=== PATIENT | female | born 1945 | race Two or more races ===

== ENCOUNTER 2020-03-14 16:47 | Inpatient (IN) | payer MEDICARE, BC ==
[~2020-03-14] VITALS: Ht 152.4 cm; Wt 85.7 kg
--- NOTE | 2020-03-14 16:50 | NUR ---
PT BIBRA FROM HOME C/O SOB 80S ON RA. ON CPAP UPON ARRIVAL. PT IS AAOX3, NOTED RESPIRATORY DISTRESS, HOOKED TO VALVE LAPPER AND BIPAP. KEPT RESTED AND COMFORTABLE. WILL CONTINUE TO MONITOR.
--- NOTE | 2020-03-14 16:52 | NUR ---
SEEN AND EXAMINED BY .
--- NOTE | 2020-03-14 16:55 | NUR ---
RT AT BEDSIDE FOR BIPAP SET UP: 21/08 100%
[2020-03-14] MEDS ORDERED: DEXAMETHASONE SOD PHOSPHATE 4 MG/ML VIAL ONE (17:00)
[2020-03-14] MEDS ORDERED: VANCOMYCIN 1 GM in IV D5W 250 ML IV ONE (17:00)
[2020-03-14] MEDS ORDERED: DEXAMETHASONE SOD PHOSPHATE 4 MG/ML VIAL IV ONE (17:00)
[2020-03-14] MEDS ORDERED: CEFEPIME 1 GM in IV D5W 50 ML IV ONE (17:00)
--- NOTE | 2020-03-14 17:00 | NUR ---
URINE SPECIMEN COLLECTED AND SENT TO LAB.
--- NOTE | 2020-03-14 17:11 | NUR ---
JUNIOR LOAN PROCESSOR AT BEDSIDE FOR XRAY.
[2020-03-14 17:21] LABS: ABG BASE EXCESS -15.8 mmol/L; ABG OXYGEN SATURATION 92.2 % (92.0-98.5); ABG PCO2 23.2 mmHg (35.0-45.0); ABG PH 7.238 (7.350-7.450); ABG PO2 77.4 mmHg (75.0-100.0); AaDO2 612.4 mmHg; COHb 0.7 % (0.5-1.5); MetHb 0.4 % (0.0-1.5); O2Hb 91.2 % (94.0-97.0); SITE, ABG Right Radial; VENT MODE, BG ST 15/5 100%
[2020-03-14 17:26] LABS: BILIRUBIN,URINE Negative (NEGATIVE); COLOR,URINE YELLOW (YELLOW); LEUKOCYTE ESTERASE ,URINE Negative (NEGATIVE); NITRITE, URINE Negative (NEGATIVE); PROTEIN,URINE >=300 mg/dl (NEGATIVE); UGLUCOSE 500 MG/DL mg/dL (NEGATIVE); UROBILINOGEN,URINE 0.2 EU/dL (0.2)
[2020-03-14 17:43] LABS: BACTERIA,URINE Few /HPF (None Seen); SQUAMOUS EPITHELIAL CELL,UR Few /HPF (None Seen); URINE AMORPHOUS URATE Moderate /HPF (None Seen); WBC,URINE 0-2 /HPF (0-3)
--- NOTE | 2020-03-14 17:44 | NUR ---
COVID SPECIMEN OBTAINED AND SENT TO LAB.
[2020-03-14 17:58] LABS: BASOPHILS % (AUTO) 0.4 % (0.0-2.0); EOSINOPHILS % (AUTO) 0.1 % (0.0-6.0); HEMATOCRIT 42 % (33-45); HEMOGLOBIN 13.5 g/dL (11.5-14.8); LYMPHOCYTES # (AUTO) 0.4 /CMM (0.8-4.8); LYMPHOCYTES % (AUTO) 7.3 % (20.0-44.0); MEAN CORPUSCULAR HGB CONC 32 g/dl (31.0-36.0); MEAN CORPUSCULAR VOLUME 93 fL (82-100); MONOCYTES # (AUTO) 0.3 /CMM (0.1-1.30); MONOCYTES % (AUTO) 4.6 % (2.0-12.0); NEUTROPHILS # (AUTO) 5.4 /CMM (1.8-8.9); NEUTROPHILS % (AUTO) 87.6 % (43.0-81.0); PLATELET COUNT (AUTO) 204 /CMM (150-450); RED BLOOD CELL COUNT(AUTO) 4.47 MIL/uL (4.0-5.2); WHITE BLOOD COUNT (AUTO) 6.2 K/uL (4.3-11.0)
[2020-03-14 18:17] LABS: ALANINE AMINOTRANSFERASE 40 U/L (12-78); ALKALINE PHOSPHATASE 60 U/L (46-116); ASPARTATE AMINOTRANSFERASE 91 U/L (15-37); BILIRUBIN,DIRECT 0.2 mg/dL (0.0-0.2); BILIRUBIN,TOTAL 0.4 mg/dL (0.2-1.0); CALCIUM, SERUM 9.3 mg/dL (8.5-10.1); CARBON DIOXIDE 13 mmol/L (21-32); CHLORIDE 99 mmol/L (98-107); CREATININE 2.4 mg/dL (0.6-1.3); POTASSIUM 4.7 mmol/L (3.5-5.1); SODIUM SERUM 135 mmol/L (136-145); TOTAL PROTEIN, SERUM 8.2 g/dL (6.4-8.2); UREA NITROGEN, BLOOD 43 mg/dL (7-18)
[2020-03-14 18:18] LABS: GLUCOSE 439 mg/dL (74-106)
--- NOTE | 2020-03-14 19:13 | NUR ---
REPORT GIVEN TO LZU GTZ FOR FLIP.
--- NOTE | 2020-03-14 19:19 | NUR ---
called rn sup for picc line nurse
[2020-03-14] MEDS ORDERED: ASPIRIN 300 MG/SUPP.RECT RC ONE ×3 (19:30→19:32)
[2020-03-14] MEDS ORDERED: INSULIN REGULAR, HUMAN 100 UNIT/ML 10 ML VIAL SQ ONE (19:30)
[2020-03-14] MEDS ORDERED: NS 0.9% IV ONE (19:30)
--- NOTE | 2020-03-14 19:56 | NUR ---
TOOK OVER PT CARE. PT AAOX4. ON BIPAP 03/13 RATE OF 21. PT SAT 94%. PT AWARE SHE IS COVID POSITIVE.
[2020-03-14] MEDS ORDERED: ENOXAPARIN SODIUM 40 MG/0.4 ML DISP.SYRIN SQ SCH (20:00)
[2020-03-14] MEDS ORDERED: ONDANSETRON HCL/PF 4 MG/2 ML VIAL IVP PRN (20:00)
[2020-03-14] MEDS ORDERED: MAG HYDROX/AL HYDROX/SIMETH 30 ML UDC PO PRN (20:00)
[2020-03-14] MEDS ORDERED: HYDROCODONE/APAP 5/325MG TABLET PO PRN (20:00)
[2020-03-14] MEDS ORDERED: IV NS 0.9% 1,000 ML IV SCH (20:00)
[2020-03-14] MEDS ORDERED: Z GUARD REMEDY 2 OZ OINT TP PRN (20:00)
[2020-03-14] MEDS: ASPIRIN 325 MG TABLET PO SCH (20:00)
[2020-03-14] MEDS ORDERED: MAGNESIUM HYDROXIDE 30 ML UDC PO PRN (20:00)
[2020-03-14] MEDS ORDERED: FUROSEMIDE 40 MG/4 ML VIAL IV ONE (20:00)
--- NOTE | 2020-03-14 20:12 | NUR ---
ROOM ASSIGNEMENT : 250
--- NOTE | 2020-03-14 20:38 | NUR ---
RT AT BEDSIDE TO SWITCH PT FROM BIPAP TO HIGH FLOW.
--- NOTE | 2020-03-14 20:40 | NUR ---
RT NOTE Pt rec'd on bipap on noted settings. Pt awake and alert. Pt shows no signs of resp distress. Pt placed on HFNC + NRB mask @ 15LPM on noted settings per md orders. ABG taken and critical results given to MD. Will continue to monitor closely. Addendum: 03/15/20 at 0002 by FIDELIA LYONS RT Amended: Links added.
--- NOTE | 2020-03-14 20:52 | NUR ---
REPORT GIVEN TO DAMIAN ESCOBAR FOR FLIP
--- NOTE | 2020-03-14 20:53 | NUR ---
Received report from LUZ Espinoza for FLIP
[2020-03-14 21:09] LABS: ABG BASE EXCESS -8.1 mmol/L; ABG OXYGEN SATURATION 85.8 % (92.0-98.5); ABG PCO2 26.7 mmHg (35.0-45.0); ABG PH 7.382 (7.350-7.450); ABG PO2 52.6 mmHg (75.0-100.0); AaDO2 633.7 mmHg; COHb 0.2 % (0.5-1.5); MetHb 0.4 % (0.0-1.5); O2Hb 85.3 % (94.0-97.0); SITE, ABG Right Radial; VENT MODE, BG high flow 60L 100% 15LNRB
--- NOTE | 2020-03-14 21:26 | NUR ---
SYSTEMS QA ANALYST NOTE: Rec'd orders from Dr. Long. Insulin drip, use formula blood sugarx1.5/100= hourly insulin drip rate. Rate can be adjusted hourly. Continue drip until anion gap <12 and bicarb >16. BMP Q6H NS @75ml/hr. Switch fluids to D5 1.2NS at 75ml/hr when blood sugar is <250 while still on insulin drip. Orders noted and carried out.
[2020-03-14] MEDS ORDERED: DEXTROSE 50%-WATER 50 ML DISP.SYRIN IV PRN (21:30)
[2020-03-14] MEDS ORDERED: BLOOD SUGAR DIAGNOSTIC 1 EACH STRIP IN SCH (21:30)
--- NOTE | 2020-03-14 21:38 | NUR ---
PT TRANSFERED PER ACLS PROTOCOL
[2020-03-14 21:41] VITALS: BP 122/63
[2020-03-14] MEDS ORDERED: INSULIN REGULAR, HUMAN 100 UNIT/ML 3 ML VIAL ONE (21:55)
[2020-03-14] MEDS ORDERED: AZITHROMYCIN 500 MG VIAL ONE (21:56)
[2020-03-14 22:00] VITALS: BP 50/27
[2020-03-14] MEDS ORDERED: IV NS 0.9% 1,000 ML IV PRN (22:00)
--- NOTE | 2020-03-14 22:00 | NUR ---
ICU ADMISSION NOTE: 2129: Pt transferred to unit via gurney accompanied by RN, EMT and RT. Transferred to bed, hooked up to monitors, skin check done, intact. Pt A&Ox4, Polish speaking. On hi-flow 60L at 100% and NRB at 100%. No SOB or resp distress noted at this time. SR on tele monitor. On isolation for positive Covid, pending PCR. IV sites on right hand #20 and left AC #20 patent and flushed. Dressings c/d/i. Awaiting PICC line placement. Arias catheter patent and draining urine via gravity. Belongings check done. Oriented to room and call light. Safety measures in place. Will continue to monitor closely.
[2020-03-14] MEDS: AZITHROMYCIN 500 MG in IV D5W 250 ML IV SCH (22:10)
[2020-03-14] MEDS: BLOOD SUGAR DIAGNOSTIC 1 EACH STRIP IN SCH ×2 (22:17→23:10)
[2020-03-14] MEDS: INSULIN REGULAR, HUMAN 100 UNIT in IV NS 0.9% 99 ML IV PRN ×2 (22:17)
[2020-03-14 22:18] VITALS: BP 110/53
[2020-03-14] MEDS ORDERED: FUROSEMIDE 20 MG/2 ML VIAL ONE (22:20)
[2020-03-14 22:30] VITALS: BP 106/65
[2020-03-14 23:00] VITALS: BP 119/66
[2020-03-14 23:30] VITALS: BP 120/67
--- NOTE | 2020-03-14 23:50 | NUR ---
BOWL TOPPER NOTE: Updated Dr. Long about pt being on both hi-flow and NRB mask, said it is fine as long as pt is saturating. Noted.
[2020-03-15] VITALS (50 sets, daily range): BP systolic 72–167; BP diastolic 19–116
[2020-03-15] MEDS: BLOOD SUGAR DIAGNOSTIC 1 EACH STRIP IN SCH ×25 (00:07→23:58)
[2020-03-15 00:18] LABS: CARBON DIOXIDE 17 mmol/L (21-32); CHLORIDE 103 mmol/L (98-107); CREATININE 1.7 mg/dL (0.6-1.3); POTASSIUM 3.6 mmol/L (3.5-5.1); SODIUM SERUM 134 mmol/L (136-145); UREA NITROGEN, BLOOD 38 mg/dL (7-18)
[2020-03-15 00:33] LABS: GLUCOSE 404 mg/dL (74-106)
--- NOTE | 2020-03-15 00:37 | NUR ---
GUN WELDER NOTE: Rec'd critical lab value glucose: 404. Paged Dr. Long w/ order to adjust insulin drip to 6units/hr. Order noted and carried out.
[2020-03-15] MEDS: IV D5/0.45 NACL 1,000 ML IV PRN ×2 (02:16→13:57)
[2020-03-15 05:00] LABS: BASOPHILS % (AUTO) 0.1 % (0.0-2.0); EOSINOPHILS % (AUTO) 0.1 % (0.0-6.0); HEMATOCRIT 38 % (33-45); HEMOGLOBIN 12.6 g/dL (11.5-14.8); LYMPHOCYTES # (AUTO) 0.7 /CMM (0.8-4.8); LYMPHOCYTES % (AUTO) 9.2 % (20.0-44.0); MEAN CORPUSCULAR HGB CONC 33 g/dl (31.0-36.0); MEAN CORPUSCULAR VOLUME 89 fL (82-100); MONOCYTES # (AUTO) 0.4 /CMM (0.1-1.30); MONOCYTES % (AUTO) 4.7 % (2.0-12.0); NEUTROPHILS # (AUTO) 6.5 /CMM (1.8-8.9); NEUTROPHILS % (AUTO) 85.9 % (43.0-81.0); PLATELET COUNT (AUTO) 185 /CMM (150-450); RED BLOOD CELL COUNT(AUTO) 4.28 MIL/uL (4.0-5.2); WHITE BLOOD COUNT (AUTO) 7.6 K/uL (4.3-11.0)
[2020-03-15 05:20] LABS: CALCIUM, SERUM 8.2 mg/dL (8.5-10.1); CARBON DIOXIDE 19 mmol/L (21-32); CHLORIDE 107 mmol/L (98-107); CREATININE 1.6 mg/dL (0.6-1.3); GLUCOSE 140 mg/dL (74-106); MAGNESIUM 2.1 mg/dL (1.8-2.4); POTASSIUM 3.7 mmol/L (3.5-5.1); SODIUM SERUM 141 mmol/L (136-145); UREA NITROGEN, BLOOD 40 mg/dL (7-18)
--- NOTE | 2020-03-15 07:10 | NUR ---
RN NOTES: Received Pt in bed resting comfortably in moderate high back rest. A/O x4. able to make needs known. On Hi flow 60LPM at 100% and NRB at 100%, tolerating well. No SOB or resp distress noted at this time. SR on tele monitor. IV access on RH #20 and LAC #20, w/ insulin drip infusing at 2.3units/hr and D5 1/2NS at 75ml/hr. Arias catheter in place patent and draining urine via gravity. Safety measures in place. Will continue to monitor.
--- NOTE | 2020-03-15 07:17 | NUR ---
SAILING OFFICER CLOSING NOTES: Pt remains on hi flow 60LPM at 100% and NRB at 100%, tolerating well. No SOB or resp distress noted. SB/SR on tele monitor. RH #20 and LAC #20 patent and flushed w/ insulin drip infusing at 2.3units/hr and D5 1/2NS at 75ml/hr. Arias catheter in place patent and draining urine via gravity. Kept clean/dry. All due meds given as ordered. Safety measures in place. Will endorse to AM nurse for FLIP.
[2020-03-15] MEDS: DEXAMETHASONE SOD PHOSPHATE 10 MG/ML VIAL IJ SCH (08:08)
[2020-03-15] MEDS: ASPIRIN 325 MG TABLET PO SCH (08:50)
[2020-03-15] MEDS: INSULIN REGULAR, HUMAN 100 UNIT in IV NS 0.9% 99 ML IV PRN ×2 (09:15)
[2020-03-15 09:43] LABS: ABG BASE EXCESS -6.9 mmol/L; ABG PCO2 26.1 mmHg (35.0-45.0); ABG PH 7.408 (7.350-7.450); ABG PO2 51.2 mmHg (75.0-100.0); AaDO2 635.7 mmHg; MetHb 0.1 % (0.0-1.5); O2Hb 85.9 % (94.0-97.0); SITE, ABG Right Radial; VENT MODE, BG 60l 100% +nrb
--- NOTE | 2020-03-15 10:30 | NUR ---
RN NOTES DR. ELLIS ON UNIT, NOTIFIED REGARDING TROP OF 2.3, NO ORDERS AT THIS TIME. WILL CONTINUE TO MONITOR.
[2020-03-15 10:45] LABS: THYROID STIMULATING HORMONE 0.181 uIU/mL (0.358-3.74)
[2020-03-15 12:15] LABS: CALCIUM, SERUM 8.2 mg/dL (8.5-10.1); CREATININE 1.3 mg/dL (0.6-1.3); POTASSIUM 3.6 mmol/L (3.5-5.1)
[2020-03-15] MEDS ORDERED: GLYB5TAB7 PO (12:21)
[2020-03-15] MEDS ORDERED: LINA5TAB PO (12:21)
[2020-03-15] MEDS ORDERED: PIOG30TA10 PO (12:21)
[2020-03-15] MEDS ORDERED: LOVA40TA2 PO (12:21)
[2020-03-15] MEDS ORDERED: LEVO125T PO (12:21)
[2020-03-15] MEDS: APIXABAN 2.5 MG TABLET PO SCH (17:00)
[2020-03-15] MEDS ORDERED: REMDESIVIR (CHARGED) 200 MG, *LOADING DOSE 1 EA in IV NS 0.9% 210 ML IV ONE (18:00)
[2020-03-15 18:44] LABS: CALCIUM, SERUM 8.3 mg/dL (8.5-10.1); CREATININE 1.1 mg/dL (0.6-1.3); POTASSIUM 3.7 mmol/L (3.5-5.1)
--- NOTE | 2020-03-15 18:55 | NUR ---
RN NOTES: Patient in bed resting comfortably in moderate high back rest. A/O x3 . On Hi flow 60LPM at 100% and NRB at 100%, tolerating well. No respiratory distress throughout the shift. SR on tele monitor with HR of 60.. IV access on RH #20 and LAC #20, w/ insulin drip infusing at 2.4 units/hr and D5 1/2NS at 75ml/hr. Arias catheter in place patent and draining urine via gravity. Safety measures in place. Will endorse to overnight houseperson nurse for giselle.
--- NOTE | 2020-03-15 19:34 | NUR ---
PAINTER AND PAPERHANGER APPRENTICE OPENING NOTES: Rec'd pt awake in bed, A&Ox4. On isolation for positive Covid. On hi-flow 60LPM at 100% and NRB mask at 100%. No SOB or resp distress noted at this time. SR on tele monitor. NPO dx. RH #20 and LAC #20 patent and infusing insulin drip at 2.4units/hr and D5 1/2NS at 75ml/hr. Arias catheter in place patent and draining urine via gravity. Denies pain at this time. Safety measures in place. Will continue to monitor.
[2020-03-15] MEDS: CEFTRIAXONE 1 G in IV D5W 50 ML IV SCH (20:10)
[2020-03-15] MEDS: AZITHROMYCIN 500 MG in IV D5W 250 ML IV SCH (20:55)
--- NOTE | 2020-03-15 22:06 | NUR ---
DISTRICT MEDICAL EXAMINER NOTE: Pt's blood sugar not trending down. Spoke w/ Dr. Long and recommended changing formula to blood sugar x 2.0/100. agreed. Noted and will use new formula.
[2020-03-15 22:58] LABS: CALCIUM, SERUM 7.8 mg/dL (8.5-10.1); CREATININE 1.1 mg/dL (0.6-1.3); POTASSIUM 3.2 mmol/L (3.5-5.1)
[2020-03-16] VITALS (40 sets, daily range): BP systolic 83–161; BP diastolic 42–105
[2020-03-16] MEDS: BLOOD SUGAR DIAGNOSTIC 1 EACH STRIP IN SCH ×23 (01:09→23:00)
--- NOTE | 2020-03-16 01:33 | NUR ---
CENTRAL SUPPLY AIDE NOTE: Rec'd call from Pattie from lab, pt's convalescent plasma is ready. 0130: Obtained verbal consent from pt w/ witness Yamilex Babcock RN d/t pt being positive and keeping forms outside of room for isolation purposes.
--- NOTE | 2020-03-16 02:10 | NUR ---
TEST CONDUCTOR NOTE: Pt pulled out IV on right hand. Pressure applied, elevated extremity. Will continue to monitor.
--- NOTE | 2020-03-16 04:16 | NUR ---
ARMATURE WINDER NOTE: Pt refused bed bath and linen change. Stated "later".
[2020-03-16 05:03] LABS: BASOPHILS % (AUTO) 0.1 % (0.0-2.0); HEMATOCRIT 38 % (33-45); HEMOGLOBIN 12.6 g/dL (11.5-14.8); LYMPHOCYTES # (AUTO) 0.5 /CMM (0.8-4.8); MEAN CORPUSCULAR HGB CONC 33 g/dl (31.0-36.0); MEAN CORPUSCULAR VOLUME 89 fL (82-100); MONOCYTES # (AUTO) 0.4 /CMM (0.1-1.30); MONOCYTES % (AUTO) 2.7 % (2.0-12.0); NEUTROPHILS # (AUTO) 12.1 /CMM (1.8-8.9); NEUTROPHILS % (AUTO) 93.2 % (43.0-81.0); PLATELET COUNT (AUTO) 200 /CMM (150-450); WHITE BLOOD COUNT (AUTO) 12.9 K/uL (4.3-11.0)
[2020-03-16] MEDS: IV D5/0.45 NACL 1,000 ML IV PRN (05:09)
[2020-03-16 05:23] LABS: ALANINE AMINOTRANSFERASE 37 U/L (12-78); ALBUMIN 2.3 g/dL (3.4-5.0); ALKALINE PHOSPHATASE 61 U/L (46-116); ASPARTATE AMINOTRANSFERASE 73 U/L (15-37); BILIRUBIN,TOTAL 0.3 mg/dL (0.2-1.0); CALCIUM, SERUM 8.1 mg/dL (8.5-10.1); CARBON DIOXIDE 21 mmol/L (21-32); CHLORIDE 109 mmol/L (98-107); GLUCOSE 110 mg/dL (74-106); MAGNESIUM 1.8 mg/dL (1.8-2.4); POTASSIUM 3.4 mmol/L (3.5-5.1); SODIUM SERUM 141 mmol/L (136-145); TOTAL PROTEIN, SERUM 6.5 g/dL (6.4-8.2); UREA NITROGEN, BLOOD 27 mg/dL (7-18)
--- NOTE | 2020-03-16 07:08 | NUR ---
AGRICULTURAL EDUCATION TEACHER CLOSING NOTES: No acute changes noted. Pt remains on hi-flow 60LPM at 100% and NRB mask. SR on tele monitor. LAC #20 patent and infusing D5 1/2NS at 75mlhr and insulin drip at 3.2 units/hr. Arias intact patent and draining urine via gravity. Pt s/p 1 unit of convalescent plasma. All due meds given as ordered. Kept clean/dry. Safety measures in place. Will endorse to oncoming nurse for FLIP.
--- NOTE | 2020-03-16 07:10 | NUR ---
RN NOTES: Received Pt in bed resting comfortably in moderate high back rest. A/O x4. able to make needs known. On Hi flow 60LPM at 100% and NRB at 100%, tolerating well. No SOB or resp distress noted at this time. SR on tele monitor. IV access on LAC #20, w/ insulin drip infusing at 3.2units/hr and D5 1/2NS at 75ml/hr. Arias catheter in place patent and draining urine via gravity. Safety measures in place. Will continue to monitor.
--- NOTE | 2020-03-16 07:32 | NUR ---
RECEIVED PCR LAB RESULT, PATIENT'S RESULT IS POSITIVE.
[2020-03-16] MEDS: DEXAMETHASONE SOD PHOSPHATE 10 MG/ML VIAL IJ SCH (08:26)
[2020-03-16] MEDS: ACETAMINOPHEN 325 MG TABLET PO PRN (08:26)
[2020-03-16] MEDS: ASPIRIN 325 MG TABLET PO SCH (08:26)
[2020-03-16] MEDS: APIXABAN 2.5 MG TABLET PO SCH ×2 (08:29→17:29)
[2020-03-16 08:49] LABS: ABG BASE EXCESS -3.2 mmol/L; ABG OXYGEN SATURATION 90.4 % (92.0-98.5); ABG PCO2 24.9 mmHg (35.0-45.0); ABG PH 7.489 (7.350-7.450); ABG PO2 53.5 mmHg (75.0-100.0); AaDO2 634.6 mmHg; COHb 0.6 % (0.5-1.5); MetHb 0.1 % (0.0-1.5); O2Hb 89.8 % (94.0-97.0); VENT MODE, BG HFNC 60L 100% +NRB
[2020-03-16] MEDS: INSULIN REGULAR, HUMAN 100 UNIT in IV NS 0.9% 99 ML IV PRN ×4 (09:34→20:31)
--- NOTE | 2020-03-16 10:15 | NUR ---
RN NOTES SEEN AND EXAMINED BY DR. OROZCO WITH ORDER TO ADD 20MEQ OF POTASSIUM ON D5 1/2NS. ORDER MADE AND CARRIED OUT AND F/U WITH PHARMACY.
[2020-03-16] MEDS ORDERED: POTASSIUM CHLORIDE 20 MEQ TAB.PRT.SR PO SCH (10:30)
[2020-03-16] MEDS: Potassium Chloride 20 MEQ in IV D5/0.45 NACL 1,000 ML IV PRN (11:04)
[2020-03-16 12:29] LABS: CALCIUM, SERUM 8.3 mg/dL (8.5-10.1); POTASSIUM 3.6 mmol/L (3.5-5.1)
[2020-03-16] MEDS ORDERED: Sodium Phosphate 15 MMOL in IV NS 0.9% 245 ML IV SCH (16:00)
[2020-03-16] MEDS: REMDESIVIR (CHARGED) 100 MG in IV NS 0.9% 230 ML IV SCH (17:38)
[2020-03-16 18:08] LABS: CARBON DIOXIDE 22 mmol/L (21-32); CHLORIDE 109 mmol/L (98-107); GLUCOSE 152 mg/dL (74-106); POTASSIUM 3.7 mmol/L (3.5-5.1); SODIUM SERUM 144 mmol/L (136-145); UREA NITROGEN, BLOOD 27 mg/dL (7-18)
--- NOTE | 2020-03-16 19:24 | NUR ---
RN NOTES: Pt in bed resting comfortably in moderate high back rest. A/O x4. able to make needs known. On Hi flow 60LPM at 100% and NRB at 100%, tolerating well. SR on tele monitor. IV access on LAC #20 and AVINASH midline, w/ insulin drip infusing at 2.1units/hr and D5 1/2NS with 20 meq kcl at 75ml/hr. Arias catheter in place patent and draining urine via gravity. Safety measures in place. Will endorse to operation shift supervisor nurse for giselle.
--- NOTE | 2020-03-16 19:30 | NUR ---
CONSTRUCTION COORDINATOR NOTE: Rec'd pt in bed, resting A&Ox4. On isolation for positive Covid. On 60LPM at 100% hi flow and NRB mask, tolerating well. No SOB or resp distress noted at this time. SR on tele monitor. LAC #20 patent and infusing D5 1/2NS w/ 20meq KCL at 75ml/hr and insulin drip at 2.1units/hr. Arias catheter in place patent and draining urine via gravity. Safety measures in place. Will continue to monitor.
[2020-03-16] MEDS: CEFTRIAXONE 1 G in IV D5W 50 ML IV SCH (20:08)
[2020-03-16] MEDS: AZITHROMYCIN 500 MG in IV D5W 250 ML IV SCH (20:40)
[2020-03-16 23:31] LABS: CALCIUM, SERUM 7.6 mg/dL (8.5-10.1); CREATININE 0.9 mg/dL (0.6-1.3); POTASSIUM 3.5 mmol/L (3.5-5.1)
[2020-03-17] VITALS (28 sets, daily range): BP systolic 105–149; BP diastolic 29–105
[2020-03-17] MEDS: BLOOD SUGAR DIAGNOSTIC 1 EACH STRIP IN SCH ×24 (00:02→23:20)
[2020-03-17] MEDS: Potassium Chloride 20 MEQ in IV D5/0.45 NACL 1,000 ML IV PRN ×2 (02:04→14:49)
--- NOTE | 2020-03-17 02:13 | NUR ---
DYE HOUSE HAND NOTE: Pt refused bed bath at this time. Stated "they cleaned me during the day." Offered pt to be cleaned again and pt refused.
--- NOTE | 2020-03-17 04:08 | NUR ---
LIFE INSURANCE SALES NOTE: Offered pt bed bath and linen change again and pt refused. Stated "it's too early. Later".
[2020-03-17 04:50] LABS: ALBUMIN 2.3 g/dL (3.4-5.0); BILIRUBIN,DIRECT 0.2 mg/dL (0.0-0.2); BILIRUBIN,TOTAL 0.3 mg/dL (0.2-1.0); CALCIUM, SERUM 7.7 mg/dL (8.5-10.1); CREATININE 0.8 mg/dL (0.6-1.3); POTASSIUM 3.6 mmol/L (3.5-5.1); TOTAL PROTEIN, SERUM 6.2 g/dL (6.4-8.2)
--- NOTE | 2020-03-17 06:56 | NUR ---
CORNER BEAD OPERATOR CLOSING NOTES: PT remained stable throughout shift. Remains on isolation for Covid positive. Remains on 60LPM at 100% hi flow plus NRB mask at 100%. SR/SB on tele monitor. LAC #20 and AVINASH midline patent and intact w/ D5 1/2NS + 20meq KCl infusing at 75ml/hr and insulin drip infusing at 3.1units/hr. Arias in place. Kept clean/dry. All due meds given as ordered. Safety measures in place. Will endorse to AM nurse for FLIP.
--- NOTE | 2020-03-17 07:20 | NUR ---
RN OPENING NOTE - ICU Received patient asleep in bed. On Hi Flow 60L 100% and non-rebreather mask 100%. O2 sat at 90%. AO x4. Noted with nevarez catheter draining clear yellow urine. Has AVINASH Midline running D5 1/2 NS with 20mEq KCl @ 75ml/hr and Insulin Drip at 3.1unit/hr. No signs of pain or discomfort. Call light within reach. Bed locked and on lowest position. Will cont to monitor.
[2020-03-17] MEDS: DEXAMETHASONE SOD PHOSPHATE 10 MG/ML VIAL IJ SCH (08:14)
[2020-03-17] MEDS: ASPIRIN 325 MG TABLET PO SCH (08:14)
[2020-03-17] MEDS: APIXABAN 2.5 MG TABLET PO SCH (08:16)
[2020-03-17] MEDS: INSULIN REGULAR, HUMAN 100 UNIT in IV NS 0.9% 99 ML IV PRN ×2 (08:38)
--- NOTE | 2020-03-17 10:45 | NUR ---
PATIENT WAS NOTED IN DISTRESS AFTER A FEW HOURS OF BEING OFF NON REBREATHER MASK. O2 SAT AT 78%. APPEARS ANXIOUS AND WAS FOUND SITTING ON THE EDGE OF THE BED. ASSISTED PATIENT BACK TO BED AND APPLIED NON REBREATHER MASK 15L. O2 SAT WENT BACK UP TO 91%. REASSURED PATIENT AND CHANGED LINEN. WILL CONT TO MONITOR.
[2020-03-17 12:34] LABS: CALCIUM, SERUM 7.9 mg/dL (8.5-10.1); CREATININE 0.9 mg/dL (0.6-1.3); POTASSIUM 4.1 mmol/L (3.5-5.1)
[2020-03-17] MEDS ORDERED: APIXABAN 2.5 MG TABLET PO SCH (17:00)
[2020-03-17 17:01] LABS: CALCIUM, SERUM 7.8 mg/dL (8.5-10.1); CARBON DIOXIDE 19 mmol/L (21-32); CHLORIDE 109 mmol/L (98-107); CREATININE 0.9 mg/dL (0.6-1.3); GLUCOSE 217 mg/dL (74-106); SODIUM SERUM 142 mmol/L (136-145); UREA NITROGEN, BLOOD 20 mg/dL (7-18)
[2020-03-17] MEDS: REMDESIVIR (CHARGED) 100 MG in IV NS 0.9% 230 ML IV SCH (18:22)
[2020-03-17 18:39] LABS: CALCIUM, SERUM 8.1 mg/dL (8.5-10.1); CREATININE 0.9 mg/dL (0.6-1.3); POTASSIUM 3.6 mmol/L (3.5-5.1)
--- NOTE | 2020-03-17 18:54 | NUR ---
RN CLOSING NOTE Patient in bed awake sleeps intermittently. Still on Highflow 60L 100% and non-rebreather mask 15L tolerating well. O2 sat 93%. AO X4 no co pain or discomfort. Tele reading SR 60-70s. Arias catheter drained 650ml clear yellow urine. Patient now on CCHO diet tolerating well. No signs of uncontrolled blood sugar. Has LAC #20 and AVINASH Midline running D5 NS c 20 mEq KCl @ 75ml/hr and Insulin Drip at 4.8units/hr. All due meds given. Vital signs maintained within normal limits. All needs met. Kept clean and comfortable. Assisted with minimal ADLs. Offered oral hydration. Safety measures maintained. Call light within reach. Bed locked and on lowest position. Will endorse to assistant shift supervisor nurse for giselle.
--- NOTE | 2020-03-17 19:30 | NUR ---
ICU/MICROWAVE ENGINEER ORDERED BMP FOR 2299 DUE TO [facility] PROTOCAL PT IS CURRENTLY ON DKA PROTOCAL.
[2020-03-17] MEDS: CEFTRIAXONE 1 G in IV D5W 50 ML IV SCH (20:13)
[2020-03-17] MEDS: AZITHROMYCIN 500 MG in IV D5W 250 ML IV SCH (20:55)
[2020-03-17] MEDS: APIXABAN 5 MG TABLET PO SCH (21:05)
--- NOTE | 2020-03-17 23:00 | NUR ---
ICU/METAL WIRE COATING OPERATOR LAB HERE FOR BMP, AWAIT FOR RESULTS.
[2020-03-17 23:28] LABS: CALCIUM, SERUM 7.8 mg/dL (8.5-10.1); CREATININE 0.8 mg/dL (0.6-1.3); POTASSIUM 4.2 mmol/L (3.5-5.1)
[2020-03-18] VITALS (36 sets, daily range): BP systolic 117–140; BP diastolic 14–83
[2020-03-18] MEDS: BLOOD SUGAR DIAGNOSTIC 1 EACH STRIP IN SCH (00:20)
--- NOTE | 2020-03-18 00:30 | NUR ---
ICU/SUPERVISOR MACHINE SETTER SPRINKLER HELPER MD BRADY SAID TO STOP THE INSULIN DRIP. AND START MODERATE SLIDING SCALE, ALSO CHANGE IVF TO D51/2NS WHICH IS DONE ALREADY BECAUSE PT IS GETTING POTASSIUM WITH THIS FLUIDS. ALSO IN AM CHECK LABS. ALL ORDERS WERE CARRIED OUT. CHARGE NURSE MADE AWARE. WILL CONTINUE TO MONITOR THIS PT.
[2020-03-18] MEDS ORDERED: DEXTROSE 50%-WATER 50 ML DISP.SYRIN IV PRN ×2 (01:00→07:30)
--- NOTE | 2020-03-18 02:00 | NUR ---
ICU/WEB PRESS JOGGER PT WAS GIVEN AM CARE, WHICH SHE TOLERATED WELL. PT REMAINS ON CURRENT HIGH FLOW ALONG WITH 15 LITERS NRB MASK WITH SATURATION AT 88-90%. PT WAS TURNED AND REPOSITIONED FOR COMFORT AND CARE. WILL CONTINUE TO MONITOR THIS PT. CALL LIGHT WITHIN REACH.
[2020-03-18 04:56] LABS: BASOPHILS % (AUTO) 0.1 % (0.0-2.0); EOSINOPHILS % (AUTO) 0.1 % (0.0-6.0); HEMATOCRIT 38 % (33-45); HEMOGLOBIN 12.8 g/dL (11.5-14.8); LYMPHOCYTES # (AUTO) 0.4 /CMM (0.8-4.8); LYMPHOCYTES % (AUTO) 3.2 % (20.0-44.0); MEAN CORPUSCULAR HGB CONC 33 g/dl (31.0-36.0); MEAN CORPUSCULAR VOLUME 88 fL (82-100); MONOCYTES # (AUTO) 0.5 /CMM (0.1-1.30); MONOCYTES % (AUTO) 4.3 % (2.0-12.0); NEUTROPHILS # (AUTO) 10.1 /CMM (1.8-8.9); NEUTROPHILS % (AUTO) 92.3 % (43.0-81.0); PLATELET COUNT (AUTO) 210 /CMM (150-450); RED BLOOD CELL COUNT(AUTO) 4.34 MIL/uL (4.0-5.2); WHITE BLOOD COUNT (AUTO) 10.9 K/uL (4.3-11.0)
--- NOTE | 2020-03-18 05:00 | NUR ---
ICU/ENVIRONMENTAL SERVICES ASSOCIATE AM LABS WERE DONE AWAIT FOR ANY ABNORMAL RESULTS.
[2020-03-18 05:17] LABS: ALBUMIN 2.4 g/dL (3.4-5.0); BILIRUBIN,DIRECT 0.2 mg/dL (0.0-0.2); BILIRUBIN,TOTAL 0.4 mg/dL (0.2-1.0); CALCIUM, SERUM 7.8 mg/dL (8.5-10.1); CREATININE 0.9 mg/dL (0.6-1.3); POTASSIUM 3.6 mmol/L (3.5-5.1); TOTAL PROTEIN, SERUM 6.3 g/dL (6.4-8.2)
[2020-03-18] MEDS: Potassium Chloride 20 MEQ in IV D5/0.45 NACL 1,000 ML IV PRN ×2 (05:56→23:06)
[2020-03-18] MEDS ORDERED: BLOOD SUGAR DIAGNOSTIC 1 EACH STRIP IN SCH (07:30)
[2020-03-18] MEDS ORDERED: INSULIN REGULAR, HUMAN 100 UNIT/ML 3 ML VIAL SQ PRN (07:30)
--- NOTE | 2020-03-18 08:00 | NUR ---
received pt from casino shift manager, alert, follows commands, SR, on high flow at 100% + non rebreather, sat 92%, SOB, able to eat, f/c good output, v/s stable, no pain, pt turns and repositions by herself.
[2020-03-18] MEDS: ASPIRIN 325 MG TABLET PO SCH (08:12)
[2020-03-18] MEDS: DEXAMETHASONE SOD PHOSPHATE 10 MG/ML VIAL IJ SCH (08:12)
[2020-03-18] MEDS: APIXABAN 5 MG TABLET PO SCH ×2 (08:14→21:25)
[2020-03-18] MEDS: INSULIN REGULAR, HUMAN 100 UNIT/ML 3 ML VIAL SQ PRN ×4 (08:33→21:52)
[2020-03-18] MEDS: BLOOD SUGAR DIAGNOSTIC 1 EACH STRIP VI SCH ×4 (08:34→21:53)
[2020-03-18] MEDS: HYDROCORTISONE SOD SUCCINATE 100 MG/2 ML VIAL IV SCH ×2 (15:59→21:25)
--- NOTE | 2020-03-18 16:14 | NUR ---
pt is resting in the bed, alert, follows commands, SR, on high flow sat OK, eats very little, good urine output, v/s stable, no pain, pt cleaned and changed.
[2020-03-18] MEDS: REMDESIVIR (CHARGED) 100 MG in IV NS 0.9% 230 ML IV SCH (17:16)
[2020-03-18] MEDS: CEFTRIAXONE 1 G in IV D5W 50 ML IV SCH (20:23)
[2020-03-18] MEDS: AZITHROMYCIN 500 MG in IV D5W 250 ML IV SCH (20:53)
[2020-03-18] MEDS: INSULIN GLARGINE, 100 UNIT/ML CARTRIDGE SQ SCH (21:52)
[2020-03-19] VITALS (33 sets, daily range): BP systolic 115–158; BP diastolic 43–78
[2020-03-19] MEDS: HYDROCORTISONE SOD SUCCINATE 100 MG/2 ML VIAL IV SCH ×3 (05:10→20:45)
[2020-03-19 05:38] LABS: BASOPHILS % (AUTO) 0.1 % (0.0-2.0); EOSINOPHILS % (AUTO) 0.2 % (0.0-6.0); HEMATOCRIT 37 % (33-45); HEMOGLOBIN 12.5 g/dL (11.5-14.8); LYMPHOCYTES # (AUTO) 0.3 /CMM (0.8-4.8); LYMPHOCYTES % (AUTO) 3.1 % (20.0-44.0); MEAN CORPUSCULAR HGB CONC 34 g/dl (31.0-36.0); MEAN CORPUSCULAR VOLUME 88 fL (82-100); MONOCYTES # (AUTO) 0.3 /CMM (0.1-1.30); MONOCYTES % (AUTO) 2.9 % (2.0-12.0); NEUTROPHILS # (AUTO) 9.2 /CMM (1.8-8.9); NEUTROPHILS % (AUTO) 93.7 % (43.0-81.0); PLATELET COUNT (AUTO) 210 /CMM (150-450); RED BLOOD CELL COUNT(AUTO) 4.25 MIL/uL (4.0-5.2); WHITE BLOOD COUNT (AUTO) 9.8 K/uL (4.3-11.0)
[2020-03-19 06:16] LABS: ALANINE AMINOTRANSFERASE 37 U/L (12-78); ALBUMIN 2.2 g/dL (3.4-5.0); ALKALINE PHOSPHATASE 84 U/L (46-116); ASPARTATE AMINOTRANSFERASE 45 U/L (15-37); BILIRUBIN,DIRECT 0.2 mg/dL (0.0-0.2); BILIRUBIN,TOTAL 0.4 mg/dL (0.2-1.0); CALCIUM, SERUM 7.9 mg/dL (8.5-10.1); CARBON DIOXIDE 24 mmol/L (21-32); CHLORIDE 106 mmol/L (98-107); CREATININE 0.8 mg/dL (0.6-1.3); GLUCOSE 208 mg/dL (74-106); POTASSIUM 3.6 mmol/L (3.5-5.1); SODIUM SERUM 141 mmol/L (136-145); UREA NITROGEN, BLOOD 15 mg/dL (7-18)
[2020-03-19 07:26] LABS: D-DIMER 9.48 mg/L(FEU (0.17-0.50)
--- NOTE | 2020-03-19 07:29 | NUR ---
patient remains in no acute distress in bed. patient did not have any significant change in condition during shift. all needs met,all orders carried out. [id number] tolerated high flow well. will endorse care to am RN for continuity of care.
--- NOTE | 2020-03-19 08:11 | NUR ---
received pt from welder 2nd shift, alert, follows commands, SR, SOB, covid +, on high flow at 100% fi02 + NRB, sat 93%, tolerates diet, f/c good output, v/s stable, no pain, pt turns and repositions by himself.
[2020-03-19] MEDS: ASPIRIN 325 MG TABLET PO SCH (08:45)
[2020-03-19] MEDS: INSULIN REGULAR, HUMAN 100 UNIT/ML 3 ML VIAL SQ PRN ×3 (08:48→17:59)
[2020-03-19] MEDS: APIXABAN 5 MG TABLET PO SCH ×2 (08:50→20:47)
[2020-03-19] MEDS: BLOOD SUGAR DIAGNOSTIC 1 EACH STRIP VI SCH ×4 (08:50→22:05)
[2020-03-19] MEDS: Potassium Chloride 20 MEQ in IV D5/0.45 NACL 1,000 ML IV PRN (12:22)
--- NOTE | 2020-03-19 16:09 | NUR ---
pt is resting in the bed, a/o x4, SR, sat 92% on high flow O2, good urine output, v/s stable, no pain, pt cleaned, changed and repositioned.
[2020-03-19] MEDS ORDERED: diphenhydrAMINE HCL 50 MG/ML VIAL IV ONE ×2 (17:30→19:30)
[2020-03-19] MEDS ORDERED: ACETAMINOPHEN 325 MG TABLET PO ONE ×2 (17:30→19:30)
[2020-03-19] MEDS: REMDESIVIR (CHARGED) 100 MG in IV NS 0.9% 230 ML IV SCH (18:00)
[2020-03-19] MEDS ORDERED: TOCILIZUMAB 400 MG in IV NS 0.9% 80 ML IV ONE ×2 (18:00→20:00)
--- NOTE | 2020-03-19 19:30 | NUR ---
CRULLER MAKER MACHINE NOTE RECEIVED PT IN BED IN SEMI-FOWLERS POSITION. A/O X 3.. PT REMAINS ON CURRENT HIGH FLOW 60L/MIN,FIO2 100% WITH NON REBREATHER MASK 15/L/MIN. SR IN TELE MONITOR. AVINASH MIDLINE AND LAC IV SITE PATENT, INTACT AND FLUSHING WELL. BED LOCKED AND IN THE LOWEST POSITION, SIDE RAILS UP X 2. CALL LIGHT WITHIN REACH WILL CONT. TO MONITOR PT.
[2020-03-19] MEDS: CEFTRIAXONE 1 G in IV D5W 50 ML IV SCH (20:30)
--- NOTE | 2020-03-19 22:05 | NUR ---
RN NOTE PT IN BED RESTING COMFORTABLY, PATEINT ASKED FOR ASSISTANCE, HAD X1 BOWEL MOVEMENT
[2020-03-19] MEDS: INSULIN GLARGINE, 100 UNIT/ML CARTRIDGE SQ SCH (22:08)
[2020-03-19] MEDS: *INSULIN REGULAR(HUMULIN R)HUM 100 UNIT/ML VIAL SQ PRN (22:11)
[2020-03-20] VITALS (35 sets, daily range): BP systolic 115–155; BP diastolic 33–93
[2020-03-20] MEDS: HYDROCORTISONE SOD SUCCINATE 100 MG/2 ML VIAL IV SCH ×3 (05:18→21:44)
[2020-03-20 05:37] LABS: BASOPHILS % (AUTO) 0.1 % (0.0-2.0); HEMATOCRIT 37 % (33-45); HEMOGLOBIN 12.3 g/dL (11.5-14.8); LYMPHOCYTES # (AUTO) 0.3 /CMM (0.8-4.8); MEAN CORPUSCULAR HGB CONC 34 g/dl (31.0-36.0); MEAN CORPUSCULAR VOLUME 88 fL (82-100); MONOCYTES # (AUTO) 0.1 /CMM (0.1-1.30); MONOCYTES % (AUTO) 2.3 % (2.0-12.0); NEUTROPHILS # (AUTO) 5.7 /CMM (1.8-8.9); NEUTROPHILS % (AUTO) 90.6 % (43.0-81.0); PLATELET COUNT (AUTO) 200 /CMM (150-450); RED BLOOD CELL COUNT(AUTO) 4.18 MIL/uL (4.0-5.2); WHITE BLOOD COUNT (AUTO) 6.3 K/uL (4.3-11.0)
[2020-03-20 05:58] LABS: ALBUMIN 2.1 g/dL (3.4-5.0); BILIRUBIN,DIRECT 0.2 mg/dL (0.0-0.2); BILIRUBIN,TOTAL 0.3 mg/dL (0.2-1.0); CALCIUM, SERUM 7.7 mg/dL (8.5-10.1); CREATININE 0.8 mg/dL (0.6-1.3); POTASSIUM 3.3 mmol/L (3.5-5.1); TOTAL PROTEIN, SERUM 5.9 g/dL (6.4-8.2)
--- NOTE | 2020-03-20 06:45 | NUR ---
RN NOTE PT REMAINS ON CURRENT HIGH FLOW 60L/MIN,FIO2 100% WITH NON REBREATHER MASK 15/L/MIN. 02 SAT MAINTAINED BETWEEN 90-94%. PT SR ON TELE MONITOR. AVINASH MIDLINE AND LAC IV SITE PATENT, INTACT AND FLUSHING WELL. LOBATO CATH DRAINING YELLOW URINE TOTAL OF 500 ML DURING SHIFT. PT CLEANED AND ALL NEEDS MET. BED LOCKED AND IN THE LOWEST POSITION, SIDE RAILS UP X 2. CALL LIGHT WITHIN REACH. ENDORSE TO AM RN FOR CONTINUATION OF CARE
--- NOTE | 2020-03-20 08:05 | NUR ---
received pt from professor of chemical engineering, alert, follows commands, SR, on high flow at 100% fi02 sat 90-92%, tolerates diet, f/c OK output, v/s stable, no pain, pt turns and repositions by herself.
[2020-03-20] MEDS: INSULIN REGULAR, HUMAN 100 UNIT/ML 3 ML VIAL SQ PRN ×3 (08:41→17:39)
[2020-03-20] MEDS: BLOOD SUGAR DIAGNOSTIC 1 EACH STRIP VI SCH ×4 (08:44→22:18)
[2020-03-20 08:50] LABS: ABG BASE EXCESS 0.1 mmol/L; ABG OXYGEN SATURATION 87.5 % (92.0-98.5); ABG PCO2 28.6 mmHg (35.0-45.0); ABG PH 7.506 (7.350-7.450); ABG PO2 50.7 mmHg (75.0-100.0); AaDO2 633.7 mmHg; COHb 0.7 % (0.5-1.5); MetHb 0.1 % (0.0-1.5); O2Hb 86.8 % (94.0-97.0); SITE, ABG Right Radial; VENT MODE, BG HFNC 60LPM 100%
[2020-03-20] MEDS: ASPIRIN 325 MG TABLET PO SCH (08:51)
[2020-03-20] MEDS: APIXABAN 5 MG TABLET PO SCH ×2 (08:59→21:58)
[2020-03-20] MEDS ORDERED: FUROSEMIDE 20 MG/2 ML VIAL IV ONE (09:00)
[2020-03-20] MEDS: POTASSIUM CL. PREMIX PERIPHER. 50 ML IV SCH ×2 (09:44→10:48)
[2020-03-20] MEDS: Potassium Chloride 20 MEQ in IV D5/0.45 NACL 1,000 ML IV PRN (14:12)
--- NOTE | 2020-03-20 16:29 | NUR ---
pt is resting in the bed, alert, follows commands, SR, on high flow 02, sat 90-92, v/s stable, OK urine output, pt cleaned, changed and repositioned.
--- NOTE | 2020-03-20 19:30 | NUR ---
SANIPRACTIC PHYSICIAN NOTE RECEIVED PT IN BED IN SEMI-FOWLERS POSITION. A/O X 3. PT REMAINS ON CURRENT HIGH FLOW 60L/MIN,FIO2 100% WITH NON REBREATHER MASK 15/L/MIN. SR IN TELE MONITOR. AVINASH MIDLINE AND LAC IV SITE PATENT, INTACT AND FLUSHING WELL. LOBATO CATH DRAINING YELLOW URINE. BED LOCKED AND IN THE LOWEST POSITION, SIDE RAILS UP X 2. CALL LIGHT WITHIN REACH WILL CONT. TO MONITOR PT
[2020-03-20] MEDS: CEFTRIAXONE 1 G in IV D5W 50 ML IV SCH (20:02)
[2020-03-20] MEDS: INSULIN GLARGINE, 100 UNIT/ML CARTRIDGE SQ SCH (22:15)
[2020-03-20] MEDS: *INSULIN REGULAR(HUMULIN R)HUM 100 UNIT/ML VIAL SQ PRN (22:17)
--- NOTE | 2020-03-20 23:57 | NUR ---
RECEIVED PT ON HFNC 60L, 100% FIO2 AND WITH NRB. O2 SAT 85-89%. WILL CONTINUE TO MONITOR CLOSELY. Addendum: 03/20/20 at 2358 by RONN SMITH RT Amended: Links added.
[2020-03-21] VITALS (36 sets, daily range): BP systolic 105–152; BP diastolic 32–100
[2020-03-21] MEDS: Potassium Chloride 20 MEQ in IV D5/0.45 NACL 1,000 ML IV PRN (04:00)
[2020-03-21 05:06] LABS: EOSINOPHILS % (AUTO) 3.5 % (0.0-6.0); HEMATOCRIT 39 % (33-45); LYMPHOCYTES # (AUTO) 0.1 /CMM (0.8-4.8); MEAN CORPUSCULAR HGB CONC 33 g/dl (31.0-36.0); MEAN CORPUSCULAR VOLUME 89 fL (82-100); MONOCYTES # (AUTO) 0.2 /CMM (0.1-1.30); MONOCYTES % (AUTO) 2.6 % (2.0-12.0); NEUTROPHILS # (AUTO) 6.6 /CMM (1.8-8.9); NEUTROPHILS % (AUTO) 91.9 % (43.0-81.0); PLATELET COUNT (AUTO) 190 /CMM (150-450); WHITE BLOOD COUNT (AUTO) 7.1 K/uL (4.3-11.0)
[2020-03-21] MEDS: HYDROCORTISONE SOD SUCCINATE 100 MG/2 ML VIAL IV SCH ×3 (05:09→20:12)
[2020-03-21 05:22] LABS: C-REACTIVE PROTEIN 5.5 mg/dL (0.0-0.9)
[2020-03-21 05:29] LABS: CALCIUM, SERUM 7.7 mg/dL (8.5-10.1); CARBON DIOXIDE 27 mmol/L (21-32); CHLORIDE 108 mmol/L (98-107); CREATININE 0.8 mg/dL (0.6-1.3); GLUCOSE 195 mg/dL (74-106); POTASSIUM 3.6 mmol/L (3.5-5.1); SODIUM SERUM 144 mmol/L (136-145); UREA NITROGEN, BLOOD 17 mg/dL (7-18)
--- NOTE | 2020-03-21 07:08 | NUR ---
EFFICIENCY ENGINEER NOTE PT REMAINS ON CURRENT HIGH FLOW 60L/MIN,FIO2 100% WITH NON REBREATHER MASK 15/L/MIN.PT IN ACUTE DISTRESS O2 SAT 87-90% SR IN TELE MONITOR. AVINASH MIDLINE AND LAC IV SITE PATENT, INTACT AND FLUSHING WELL. LOBATO CATH DRAINING YELLOW URINE 550 ML TOTAL DURING SHIFT. BED LOCKED AND IN THE LOWEST POSITION, SIDE RAILS UP X 2. CALL LIGHT WITHIN REACH ENDORSED TO AM RN FOR FLIP AND TO F/U LAB RESULTS.
--- NOTE | 2020-03-21 08:00 | NUR ---
RN NOTES RECEIVED PATIENT HIGH FLOW 60L/MIN,FIO2 100% WITH NON REBREATHER MASK 15/L/MIN. PT IN ACUTE DISTRESS O2 SAT 87-90% SR IN TELE MONITOR. AVINASH MIDLINE AND LAC IV SITE PATENT, INTACT AND FLUSHING WELL PER MD GARCIA STOP INFUSION. KEEP HOB ELEVATED, AND EDUCATED PATIENT DEEP BREATHING. RT WITH PATIENT AT THIS TIME. LOBATO CATH DRAINING DARK YELLOW URINE . BED LOCKED AND IN THE LOWEST POSITION, ASSIST TURN AND REPOSITION Q2 HR. SIDE RAILS UP X 2. CALL LIGHT WITHIN REACH. WILL MONITORING.
--- NOTE | 2020-03-21 08:30 | NUR ---
RN NOTES PATIENT REFUSED BREAKFAST, BS-210MG/DL NO COVERAGE GIVEN, ADMINISTERED SCHEDULED MEDICATION. KEEP HOB ELEVATED.
[2020-03-21] MEDS ORDERED: FUROSEMIDE 20 MG/2 ML VIAL IV SCH (09:30)
[2020-03-21] MEDS: ASPIRIN 325 MG TABLET PO SCH (10:04)
[2020-03-21] MEDS: BLOOD SUGAR DIAGNOSTIC 1 EACH STRIP VI SCH ×4 (10:04→22:00)
[2020-03-21] MEDS: APIXABAN 5 MG TABLET PO SCH ×2 (12:29→20:13)
--- NOTE | 2020-03-21 12:40 | NUR ---
rn notes BS-203MG/DL AT THIS TIME, PATIENT TOLERATED 5% OF LUNCH, ADMINISTERED SCHEDULED MEDICATION, PATIENT ON HIGH FLOW OXYGEN, AND NON-REBREATHER MASK 15L, KEEP HOB ELEVATED, PATIENT O2- GOING 85--[address] GARCIA AWARE OF, WILL MONITORING.
[2020-03-21] MEDS: INSULIN REGULAR, HUMAN 100 UNIT/ML 3 ML VIAL SQ PRN (18:28)
--- NOTE | 2020-03-21 18:30 | NUR ---
RN NOTES PATIENT IN THE BED , BS-182 MG/DL, COVERAGE GIVEN, PATIENT TOLERATED DINNER 10%, ASSIST TURN AND REPOSTION Q2 HR, KEEP HOB ELEVATED. PATIENT EDUCATED KEEP DEEP BREADING, BECAUSE OF EASILY DESATURATED 85/-90, Dr GARCIA AWARE OF. DUE MEDICATION ADMINISTERED, ASSIST TURN AND REPOSITION Q 2 HR, LOBATO DRAINING LIGHT YELLOW OUTPUT, ENDORSED ONCOMING NURSE FOLLOW PLAN OF CARE.
--- NOTE | 2020-03-21 19:43 | NUR ---
OPTICAL GLASS INSPECTOR NOTE INFORMED NELDA SMITH AUTOMOTIVE TEACHER THAT PT HAS LOW O2 SAT 81%. REMAIN ON HIGH FLOW 60L AND FIO2 100% AND NRB MASK 15L, AUTOMOTIVE TEACHER GAVE NEW ORDER, ORDER NOTE AND CARRIED OUT. REPOSITION THE PT HIGH UP IN BED.
[2020-03-21] MEDS ORDERED: ALBUTEROL FS 2.5 MG/0.5 ML VIAL.NEB INH PRN (20:00)
[2020-03-21] MEDS ORDERED: FUROSEMIDE 20 MG/2 ML VIAL IV ONE (20:00)
--- NOTE | 2020-03-21 20:00 | NUR ---
MENTAL HEALTH NURSE NOTE PT RECEIVED IN BED WITH HOB UP. A/O X 3. NO HIGH FLOW O2 60L FIO2 100% ON TOP SHE IS ON 15L NRB MASK, O2 SAT 86%. ON TELE MONITOR SR 98. DENIES PAIN. AVINASH MIDLINE AND LAC #20 G INTACT AND PATENT. NO S/S OF HYPO OR HYPERGLYCEMIA NOTED. KEPT HER DRY AND CLEAN. F/C INTACT AND PATENT DRAINING YELLOWISH COLOR URINE. BLOOD PRESSURE WNL NO FEVER AT THIS TIME TEMP 98.2. CONTINUE TO MONITOR HER.
[2020-03-21] MEDS: CEFTRIAXONE 1 G in IV D5W 50 ML IV SCH (20:12)
--- NOTE | 2020-03-21 20:15 | NUR ---
FLUE DUST LABORER NOTE LASIX 20 MG IVP GIVEN ORDERED. CONTINUE TO MONITOR ON OUTPUT.
[2020-03-21] MEDS ORDERED: ALBUTEROL SULFATE 8 GM HFA.AER.AD ONE (21:33)
[2020-03-21] MEDS: *INSULIN REGULAR(HUMULIN R)HUM 100 UNIT/ML VIAL SQ PRN (22:14)
[2020-03-21] MEDS: INSULIN GLARGINE, 100 UNIT/ML CARTRIDGE SQ SCH (22:14)
--- NOTE | 2020-03-21 22:30 | NUR ---
ACDS BLOCK 1 OPERATOR NOTE NELDA CORDERO VISITED THE PT, INFORMED HER THAT LASIX WAS GIVEN, ALSO NEBULIZER INH GIVEN TO HER. O2 SAT 87%. NO FURTHER ORDER GIVEN.
[2020-03-22] VITALS (41 sets, daily range): BP systolic 48–146; BP diastolic 26–100
[2020-03-22] MEDS: HYDROCORTISONE SOD SUCCINATE 100 MG/2 ML VIAL IV SCH ×3 (04:34→20:57)
[2020-03-22 04:35] LABS: EOSINOPHILS % (AUTO) 2.3 % (0.0-6.0); HEMATOCRIT 40 % (33-45); HEMOGLOBIN 13.4 g/dL (11.5-14.8); LYMPHOCYTES # (AUTO) 0.1 /CMM (0.8-4.8); LYMPHOCYTES % (AUTO) 1.6 % (20.0-44.0); MEAN CORPUSCULAR HGB CONC 33 g/dl (31.0-36.0); MEAN CORPUSCULAR VOLUME 89 fL (82-100); MONOCYTES # (AUTO) 0.2 /CMM (0.1-1.30); MONOCYTES % (AUTO) 1.9 % (2.0-12.0); NEUTROPHILS # (AUTO) 8.2 /CMM (1.8-8.9); NEUTROPHILS % (AUTO) 94.2 % (43.0-81.0); PLATELET COUNT (AUTO) 232 /CMM (150-450); RED BLOOD CELL COUNT(AUTO) 4.52 MIL/uL (4.0-5.2); WHITE BLOOD COUNT (AUTO) 8.7 K/uL (4.3-11.0)
[2020-03-22 04:47] LABS: CALCIUM, SERUM 7.7 mg/dL (8.5-10.1); POTASSIUM 3.4 mmol/L (3.5-5.1)
--- NOTE | 2020-03-22 06:35 | NUR ---
MANAGER SOURCING NOTE PT IN BED ASLEEP, AROUSABLE NO DISTRESS NOTED. REMAIN ON HIGHFLOW AND NRB MASK WITH 15 L O2. DENIES PAIN. O2 SAT AT THIS TIME.86%. ON TELE SR 80. F/C INTACT AND PATENT DRAINING YELLOWISH COLOR URINE. SIDE RAILS UP X 2 AND CALL LIGHT WITHIN REACH. WILL ENDORSE TO DAY SHIFT NURSE FOR CONTINUE TO CARE.
[2020-03-22 07:57] LABS: ABG BASE EXCESS 3.2 mmol/L; ABG OXYGEN SATURATION 78.4 % (92.0-98.5); ABG PCO2 33.6 mmHg (35.0-45.0); ABG PH 7.505 (7.350-7.450); AaDO2 639.4 mmHg; COHb 0.8 % (0.5-1.5); MetHb 0.2 % (0.0-1.5); O2Hb 77.6 % (94.0-97.0); SITE, ABG Right Radial; VENT MODE, BG HI FLO NC 60L 100% + NRB
--- NOTE | 2020-03-22 08:00 | NUR ---
RN NOTES RECEIVED PATIENT IN BED ABUSABLE , SATURATION DROOPING 77 TO 80% . REMAIN ON HIGH FLOW AND NRB MASK WITH 15 L O2. DENIES PAIN. O2 SAT AT THIS TIME 80%. ON TELE SR 80. F/C INTACT AND PATENT DRAINING YELLOWISH COLOR URINE. SIDE RAILS UP X 2 AND CALL LIGHT WITHIN REACH.
[2020-03-22] MEDS ORDERED: FUROSEMIDE 20 MG/2 ML VIAL IV ONE (08:30)
--- NOTE | 2020-03-22 09:00 | NUR ---
RN NOTES PATIENT GET INTUBATED AT THIS TIME, EET 7.2, PEEP 10, AC MODE, FIO2-100. PATIENT TOLERATED EET SETTING WELL, STARTED DIPRIVAN 5 MCG AT THIS TIME, AND TITRATING UP. SOFT RESTRAIN ON.
[2020-03-22] MEDS: BLOOD SUGAR DIAGNOSTIC 1 EACH STRIP VI SCH ×4 (09:57→21:49)
[2020-03-22] MEDS: PROPOFOL 10MG/ML 50ML 50 ML IV PRN ×4 (09:58→22:34)
[2020-03-22] MEDS: ASPIRIN 325 MG TABLET PO SCH (09:59)
[2020-03-22] MEDS: APIXABAN 5 MG TABLET PO SCH ×2 (10:02→20:58)
[2020-03-22] MEDS: POTASSIUM CL. PREMIX PERIPHER. 50 ML IV SCH ×2 (10:05→11:36)
[2020-03-22] MEDS: NOREPINEPHRINE 8 MG in IV NS 0.9% 242 ML IV PRN ×2 (11:35→17:32)
[2020-03-22 13:53] LABS: ABG BASE EXCESS -0.4 mmol/L; ABG OXYGEN SATURATION 96.3 % (92.0-98.5); ABG PCO2 34.3 mmHg (35.0-45.0); ABG PH 7.445 (7.350-7.450); ABG PO2 83.1 mmHg (75.0-100.0); AaDO2 595.6 mmHg; MetHb 0.2 % (0.0-1.5); O2Hb 95.1 % (94.0-97.0); SITE, ABG Right Radial; VENT MODE, BG AC 24 600 100% +10
--- NOTE | 2020-03-22 18:30 | NUR ---
RN NOTES PATIENT SEDATED , NO ACUTE RESPIRATORY DISTRESS, TOLERATED EET SETTING WELL. INFUSING DIPRIVAN 35MCG, AND LEVOPHED 0.3 MCG. PM CARE DONE, BS-251 MG/DL, NO COVERAGE GIVEN, NG INTACT, AND CLAMPED. RECHECKED BILATERAL SOFT RESTRAIN CIRCULATION, ASSIST TURN AND REPOSTION Q 2 HR. LOBATO DRAINING YELLOW OUTPUT, DVT PUMP ON. KEEP HOB ELEVATED. ENDORSED ONCOMING NURSE FOLLOW PLAN OF CARE.
--- NOTE | 2020-03-22 20:05 | NUR ---
RN NOTES RECEIVED PATIENT IN BED S/P INTUBATED THIS MORNING, ON MECHANICAL VENTILATOR TOLERATED WELL WITH 100% O2 SAT LEVEL, SB IN TELE SR WITH HR 50S AT THIS TIME, AVINASH MIDLINE IN PLACE DIPRIVAN AND LEVO INFUSING ORDERED, PATIENT TOLERATED WELL, F/C INTACT AND PATENT DRAINING YELLOWISH COLOR URINE, SIDE RAILS UP X 2, AND CALL LIGHT WITHIN REACH, WILL CONTINUE TO MONITOR CLOSELY.
[2020-03-22] MEDS: INSULIN GLARGINE, 100 UNIT/ML CARTRIDGE SQ SCH (21:51)
[2020-03-22] MEDS: *INSULIN REGULAR(HUMULIN R)HUM 100 UNIT/ML VIAL SQ PRN (21:52)
[2020-03-23] VITALS (78 sets, daily range): BP systolic 82–150; BP diastolic 33–60
[2020-03-23] MEDS: NOREPINEPHRINE 8 MG in IV NS 0.9% 242 ML IV PRN ×2 (01:37→11:18)
[2020-03-23] MEDS: HYDROCORTISONE SOD SUCCINATE 100 MG/2 ML VIAL IV SCH ×3 (04:30→21:17)
[2020-03-23 05:11] LABS: BASOPHILS # (AUTO) 0.1 /CMM (0.0-0.2); BASOPHILS % (AUTO) 0.5 % (0.0-2.0); EOSINOPHILS % (AUTO) 1.5 % (0.0-6.0); HEMATOCRIT 39 % (33-45); HEMOGLOBIN 12.8 g/dL (11.5-14.8); LYMPHOCYTES # (AUTO) 0.4 /CMM (0.8-4.8); LYMPHOCYTES % (AUTO) 2.9 % (20.0-44.0); MEAN CORPUSCULAR HGB CONC 33 g/dl (31.0-36.0); MEAN CORPUSCULAR VOLUME 91 fL (82-100); MONOCYTES # (AUTO) 0.2 /CMM (0.1-1.30); MONOCYTES % (AUTO) 1.9 % (2.0-12.0); NEUTROPHILS # (AUTO) 11.9 /CMM (1.8-8.9); NEUTROPHILS % (AUTO) 93.2 % (43.0-81.0); PLATELET COUNT (AUTO) 300 /CMM (150-450); RED BLOOD CELL COUNT(AUTO) 4.33 MIL/uL (4.0-5.2); WHITE BLOOD COUNT (AUTO) 12.8 K/uL (4.3-11.0)
[2020-03-23 05:23] LABS: CALCIUM, SERUM 7.9 mg/dL (8.5-10.1); CARBON DIOXIDE 23 mmol/L (21-32); CHLORIDE 110 mmol/L (98-107); CREATININE 1.9 mg/dL (0.6-1.3); GLUCOSE 279 mg/dL (74-106); MAGNESIUM 2.4 mg/dL (1.8-2.4); PHOSPHORUS 4.2 mg/dL (2.5-4.9); POTASSIUM 3.6 mmol/L (3.5-5.1); SODIUM SERUM 149 mmol/L (136-145); UREA NITROGEN, BLOOD 48 mg/dL (7-18)
[2020-03-23] MEDS: PROPOFOL 10MG/ML 50ML 50 ML IV PRN ×4 (06:10→20:16)
--- NOTE | 2020-03-23 07:30 | NUR ---
ICU/RN PT IS INTUBATED ON THE VENT AC MODE.FIO2-100%.SAT O2-100.SEDATED ON DIPRIVAN.ON LEVOPHED DRIP.BILATERAL WRIST SOFT RESTRAINS ON.NG TUBE CLAMPED.F/C DRAINING WITH YELLOW URINE.SUCTION PROVIDED.REPOSITION FOR COMFORT.REDNESS ON OCHOA AREA NOTED.LABS REVIEW. NOTIFIED.
--- NOTE | 2020-03-23 07:56 | NUR ---
ENDORSED PATIENT TO LUZ SALGADO FOR CONTINUATION OF CARE.
--- NOTE | 2020-03-23 07:56 | NUR ---
RN NOTES, RECEIVED PATIENT INTUBATED, ON MECHANICAL VENTILATOR TOLERATED WELL WITH 100% O2 SAT LEVEL, SB IN TELE SR WITH HR 40-60S THROUGHOUT THE NIGHT, NO SIGNIFICANT CHANGE IN CONDITION, MAINTAINING MOSTLY 100% 02 ON VENT, AVINASH MIDLINE AND LEFT AC PIV LINE IN PLACE, DIPRIVAN AND LEVO INFUSING ORDERED, PATIENT TOLERATED WELL, BILATERAL SOFT WRIST RESTRAINS IN PLACE, NO CIRCULATION COMPROMISED OR ABNORMALITY NOTED AT SITE, SIDE RAILS UP X 2, AND CALL LIGHT WITHIN REACH, WILL CONTINUE TO MONITOR CLOSELY.
[2020-03-23 08:24] LABS: ABG BASE EXCESS -0.9 mmol/L; ABG OXYGEN SATURATION 96.8 % (92.0-98.5); ABG PCO2 27.5 mmHg (35.0-45.0); AaDO2 599.5 mmHg; COHb 0.3 % (0.5-1.5); MetHb 0.3 % (0.0-1.5); O2Hb 96.2 % (94.0-97.0); PEEP,BG 10 cm H2O; VT, ABG 600 mL
--- NOTE | 2020-03-23 08:29 | NUR ---
vent changes below per dr. carlos: tidal volume 500 ml rn notified on ventg changes made. Addendum: 03/23/20 at 0830 by JANEY DECKER RT Amended: Links added.
[2020-03-23] MEDS: ASPIRIN 325 MG TABLET PO SCH (08:44)
[2020-03-23] MEDS: APIXABAN 5 MG TABLET PO SCH ×2 (08:47→21:18)
--- NOTE | 2020-03-23 09:00 | NUR ---
ICU/RN DUE MEDS ARE GIVEN ORDERED.
--- NOTE | 2020-03-23 10:00 | NUR ---
ICU/RN SEDATION VACATION PROVIDED.PT IS AWAKE,ALERT.FOLLOWS COMMAND
[2020-03-23] MEDS: BLOOD SUGAR DIAGNOSTIC 1 EACH STRIP IN SCH ×5 (11:05→23:38)
[2020-03-23] MEDS ORDERED: DEXTROSE 50%-WATER 50 ML DISP.SYRIN IV PRN (14:00)
[2020-03-23] MEDS ORDERED: INSULIN REGULAR, HUMAN 100 UNIT/ML 3 ML VIAL SQ PRN (14:00)
[2020-03-23] MEDS: INSULIN REGULAR, HUMAN 100 UNIT/ML 3 ML VIAL SQ PRN ×2 (14:46→23:39)
--- NOTE | 2020-03-23 17:00 | NUR ---
ICU/RN PM CARE PROVIDED.DUE MEDS ARE GIVEN ORDERED. NG TUBE FEEDING STARTED ORDERED.CONTINUE MONITORING.
[2020-03-23] MEDS: NEPRO 1,000 ML BOTTLE GT PRN (17:48)
--- NOTE | 2020-03-23 19:05 | NUR ---
RECEIVED PT ON BED SEDATED ON ETT 10/28/VENT SETTING PER MD, SPO2 99% TELE MONITOR READS SINUS RHYTHM 50'S, HAVE RNARE NGT PLACEMENT CHECKED AND VERIFIED, RESIDUAL 5ML WITH ONGOING NEPHRO @ 15ML/HR, WITH AVINASH MIDLINE PATENT AND FLUSHED WITH ONGOING PROPOFOL @ 30 MCG/KG/MIN INFUSING WELL, DROPLET ISOLATION FOR COVID 19 MAINTAINED BED ON LOWEST POSITION AND LOCKED HOB @ 40 DEGREE, SIDE RAILS UP X 2 BILATERAL WRIST RESTRAINTS ON PLACED CIRCULATION WILL BE CHECKED REGULARLY WILL CONT TO MONITOR
[2020-03-23] MEDS: INSULIN GLARGINE, 100 UNIT/ML CARTRIDGE SQ SCH (21:34)
[2020-03-24] VITALS (97 sets, daily range): BP systolic 90–163; BP diastolic 27–95
[2020-03-24] MEDS: PROPOFOL 10MG/ML 50ML 50 ML IV PRN ×7 (00:07→21:47)
--- NOTE | 2020-03-24 01:27 | NUR ---
STILL ON BED SEDATED ETT/VENT SETTING PER MD NO RESPIRATORY DISTRESS NOTED SPO2 100% WILL CONT TO MONITOR
[2020-03-24 04:13] LABS: BASOPHILS % (AUTO) 0.2 % (0.0-2.0); EOSINOPHILS % (AUTO) 0.3 % (0.0-6.0); HEMATOCRIT 39 % (33-45); HEMOGLOBIN 12.5 g/dL (11.5-14.8); LYMPHOCYTES # (AUTO) 0.4 /CMM (0.8-4.8); LYMPHOCYTES % (AUTO) 2.9 % (20.0-44.0); MEAN CORPUSCULAR HGB CONC 32 g/dl (31.0-36.0); MEAN CORPUSCULAR VOLUME 90 fL (82-100); MONOCYTES # (AUTO) 0.3 /CMM (0.1-1.30); MONOCYTES % (AUTO) 2.4 % (2.0-12.0); NEUTROPHILS # (AUTO) 12.4 /CMM (1.8-8.9); NEUTROPHILS % (AUTO) 94.2 % (43.0-81.0); PLATELET COUNT (AUTO) 240 /CMM (150-450); RED BLOOD CELL COUNT(AUTO) 4.28 MIL/uL (4.0-5.2); WHITE BLOOD COUNT (AUTO) 13.2 K/uL (4.3-11.0)
[2020-03-24 04:37] LABS: CALCIUM, SERUM 8.2 mg/dL (8.5-10.1); CARBON DIOXIDE 26 mmol/L (21-32); CHLORIDE 115 mmol/L (98-107); CREATININE 1.5 mg/dL (0.6-1.3); GLUCOSE 255 mg/dL (74-106); POTASSIUM 3.3 mmol/L (3.5-5.1); SODIUM SERUM 152 mmol/L (136-145); UREA NITROGEN, BLOOD 52 mg/dL (7-18)
[2020-03-24] MEDS: HYDROCORTISONE SOD SUCCINATE 100 MG/2 ML VIAL IV SCH ×3 (05:01→21:39)
[2020-03-24] MEDS: BLOOD SUGAR DIAGNOSTIC 1 EACH STRIP IN SCH ×3 (05:35→18:33)
[2020-03-24] MEDS: INSULIN REGULAR, HUMAN 100 UNIT/ML 3 ML VIAL SQ PRN ×2 (05:37→18:36)
[2020-03-24] MEDS: NOREPINEPHRINE 8 MG in IV NS 0.9% 242 ML IV PRN ×2 (07:08→21:41)
--- NOTE | 2020-03-24 08:01 | NUR ---
PT ON BED SEDATED STILL ON ETT/VENT SETTING PER MD SPO2 98% NO DISTRESS NOTED, PT STILL ON DIPRIVAN @ 30MCG/KG/MIN, LEVOPHED @ 0.1MCG/KG/MIN INFUSING WELL, ALL NEEDS ATTENDED DROPLET ISOLATION FOR COVID MAINTAINED BE DON LOWEST POSITION WILL ENDORSED TO AM SHIFT NURSE
[2020-03-24] MEDS: APIXABAN 5 MG TABLET PO SCH ×2 (09:00→21:40)
[2020-03-24] MEDS: ASPIRIN 325 MG TABLET PO SCH (09:00)
[2020-03-24] MEDS ORDERED: POTASSIUM CHLORIDE 20 MEQ POWDER PACKET NG SCH (10:00)
--- NOTE | 2020-03-24 12:15 | NUR ---
RN NOTES REGULAR INSULIN 15 UNITS GIVEN PER SLIDING SCALE, CO WITNESSED BY LAI (RN).
[2020-03-24] MEDS: MEROPENEM 500 MG in IV NS 0.9% 50 ML IV SCH ×2 (14:26→21:40)
[2020-03-24 18:32] LABS: C-REACTIVE PROTEIN 2.1 mg/dL (0.0-0.9)
--- NOTE | 2020-03-24 19:35 | NUR ---
PT REMAINS SEDATED. IN STABLE CONDITION. ENDORSE TO NEXT SHIFT.
[2020-03-25] VITALS (93 sets, daily range): BP systolic 63–148; BP diastolic 27–110
--- NOTE | 2020-03-25 00:10 | NUR ---
HAY STACKER GLUCOSE 418; FOLLOW PROTOCOL AND RECHECK IN TWO HOURS.
[2020-03-25] MEDS: INSULIN GLARGINE, 100 UNIT/ML CARTRIDGE SQ SCH ×2 (00:23→21:45)
[2020-03-25] MEDS: INSULIN REGULAR, HUMAN 100 UNIT/ML 3 ML VIAL SQ PRN ×4 (00:24→18:15)
[2020-03-25] MEDS: BLOOD SUGAR DIAGNOSTIC 1 EACH STRIP IN SCH ×4 (00:25→18:21)
[2020-03-25] MEDS: PROPOFOL 10MG/ML 50ML 50 ML IV PRN ×5 (01:45→21:21)
[2020-03-25] MEDS: NEPRO 1,000 ML BOTTLE GT PRN (02:37)
[2020-03-25 04:42] LABS: BASOPHILS % (AUTO) 0.3 % (0.0-2.0); EOSINOPHILS % (AUTO) 0.5 % (0.0-6.0); HEMATOCRIT 37 % (33-45); HEMOGLOBIN 12.1 g/dL (11.5-14.8); LYMPHOCYTES # (AUTO) 0.5 /CMM (0.8-4.8); LYMPHOCYTES % (AUTO) 5.5 % (20.0-44.0); MEAN CORPUSCULAR HGB CONC 33 g/dl (31.0-36.0); MEAN CORPUSCULAR VOLUME 91 fL (82-100); MONOCYTES # (AUTO) 0.5 /CMM (0.1-1.30); MONOCYTES % (AUTO) 5.3 % (2.0-12.0); NEUTROPHILS # (AUTO) 8.2 /CMM (1.8-8.9); NEUTROPHILS % (AUTO) 88.4 % (43.0-81.0); PLATELET COUNT (AUTO) 211 /CMM (150-450); RED BLOOD CELL COUNT(AUTO) 4.09 MIL/uL (4.0-5.2); WHITE BLOOD COUNT (AUTO) 9.3 K/uL (4.3-11.0)
[2020-03-25 05:02] LABS: CARBON DIOXIDE 26 mmol/L (21-32); CHLORIDE 121 mmol/L (98-107); CREATININE 1.4 mg/dL (0.6-1.3); GLUCOSE 325 mg/dL (74-106); UREA NITROGEN, BLOOD 46 mg/dL (7-18)
[2020-03-25] MEDS: HYDROCORTISONE SOD SUCCINATE 100 MG/2 ML VIAL IV SCH ×3 (05:22→21:21)
[2020-03-25 05:26] LABS: POTASSIUM 2.6 mmol/L (3.5-5.1); SODIUM SERUM 159 mmol/L (136-145)
[2020-03-25 05:37] LABS: ABG BASE EXCESS -0.8 mmol/L; ABG OXYGEN SATURATION 94.5 % (92.0-98.5); ABG PCO2 35.8 mmHg (35.0-45.0); ABG PH 7.427 (7.350-7.450); ABG PO2 71.4 mmHg (75.0-100.0); AaDO2 389.2 mmHg; COHb 0.3 % (0.5-1.5); MetHb 0.3 % (0.0-1.5); O2Hb 93.9 % (94.0-97.0); PEEP,BG 10 cm H2O; SITE, ABG Right Radial; VT, ABG 500 mL
--- NOTE | 2020-03-25 07:00 | NUR ---
PT SEDATED. VENT SETTINGS ORDERED. NO SIGNS OF DISTRESS. SKIN WARM AND FLUSHED. HOB ELEVATED. SB SR 50-60S. NEPHRO 30 ML HR ORDERED TOLERATING WELL GT AUSCULTATED FOR PLACEMENT. PROPOFOL 35 MCG W NO RESP DISTRESS. LEVO AT 0.01 WITH BP CONTROLLED WITHIN NORMAL RANGE. MONITORING GLUCOSE CLOSELY AND REPORTING TO MD NEEDED. ALL HOSPITAL POLICY SAFETY PRECAUTIONS IMPLEMENTED. WILL REPORT LABS TO MD NEEDED.
[2020-03-25] MEDS: ASPIRIN 325 MG TABLET PO SCH (08:32)
[2020-03-25] MEDS: MEROPENEM 500 MG in IV NS 0.9% 50 ML IV SCH ×2 (08:32→21:21)
[2020-03-25] MEDS: APIXABAN 5 MG TABLET PO SCH ×2 (08:34→21:22)
[2020-03-25] MEDS: POTASSIUM CHLORIDE 20 MEQ POWDER PACKET NG SCH ×4 (09:00→13:01)
--- NOTE | 2020-03-25 11:30 | NUR ---
MOBILE LAB TECHNICIAN NOTIFIED OF LEFT UPPER EXTREMITY SWELLING. MOBILE LAB TECHNICIAN AWARE. AWAITING ORDERS. ELEVATING EXTREMITY ON PILLOW AND MONITORING CLOSELY.
--- NOTE | 2020-03-25 12:00 | NUR ---
ORDERED K REPLACEMENT TIME ADJUSTED. NON ADMIN 0900 1000 PHARMACY ADJUSTED TIME. THE ORDERED K FOR 1200 AND 1300 ADMINISTERED.
--- NOTE | 2020-03-25 18:56 | NUR ---
PT SEDATED. VENT SETTINGS ORDERED. NO SIGNS OF DISTRESS. SKIN WARM AND FLUSHED. HOB ELEVATED. SB SR 50-60S. NEPHRO 30 ML HR ORDERED TOLERATING WELL NGT AUSCULTATED FOR PLACEMENT. PROPOFOL 40 MCG W NO RESP DISTRESS. LEVO AT 0.05 WITH BP CONTROLLED WITHIN NORMAL RANGE. MONITORed GLUCOSE CLOSELY AND REPORTed TO MD NEEDED. ALL HOSPITAL POLICY SAFETY PRECAUTIONS IMPLEMENTED. REPORTED LABS TO MD NEEDED. NO ACUTE CHANGES. WILL ENDORSE TO RN. TURNED Q2H AND ELEVATED EXTREMITIES.
[2020-03-25] MEDS: NOREPINEPHRINE 8 MG in IV NS 0.9% 242 ML IV PRN (22:06)
[2020-03-26] VITALS (94 sets, daily range): BP systolic 79–148; BP diastolic 30–57
[2020-03-26] MEDS: BLOOD SUGAR DIAGNOSTIC 1 EACH STRIP IN SCH ×4 (00:34→17:22)
[2020-03-26] MEDS: PROPOFOL 10MG/ML 50ML 50 ML IV PRN ×8 (01:10→21:52)
[2020-03-26] MEDS: INSULIN REGULAR, HUMAN 100 UNIT/ML 3 ML VIAL SQ PRN ×4 (01:44→17:22)
[2020-03-26] MEDS: HYDROCORTISONE SOD SUCCINATE 100 MG/2 ML VIAL IV SCH ×3 (05:09→21:00)
[2020-03-26 06:05] LABS: BASOPHILS % (AUTO) 0.3 % (0.0-2.0); EOSINOPHILS % (AUTO) 0.7 % (0.0-6.0); HEMATOCRIT 36 % (33-45); LYMPHOCYTES # (AUTO) 0.4 /CMM (0.8-4.8); LYMPHOCYTES % (AUTO) 5.4 % (20.0-44.0); MEAN CORPUSCULAR HGB CONC 34 g/dl (31.0-36.0); MEAN CORPUSCULAR VOLUME 91 fL (82-100); MONOCYTES # (AUTO) 0.3 /CMM (0.1-1.30); MONOCYTES % (AUTO) 3.9 % (2.0-12.0); NEUTROPHILS # (AUTO) 7.2 /CMM (1.8-8.9); NEUTROPHILS % (AUTO) 89.7 % (43.0-81.0); PLATELET COUNT (AUTO) 162 /CMM (150-450); RED BLOOD CELL COUNT(AUTO) 3.92 MIL/uL (4.0-5.2)
[2020-03-26 06:07] LABS: CALCIUM, SERUM 8.3 mg/dL (8.5-10.1)
[2020-03-26 07:04] LABS: POTASSIUM 2.8 mmol/L (3.5-5.1)
--- NOTE | 2020-03-26 08:00 | NUR ---
GENETICIST PT ADMITTED W/COVD PNA; PT IS INTUBATED 7 @ 22 W/VENT SETTINGS AC 24 500 60% +10/ SINUS DESHAWN ON MONITOR. SEDATED ON PROPOFOL @ 30 MCG/KG/MIN. ATTEMPTS TO DECREASE THE SEDATION AND PT IS NOTED TO BE TACHYPNEIC. LEVO @ 0.02 MCG/KG/MIN W/TITRATIONS PER PROTOCOL. SKIN INTACT.
[2020-03-26] MEDS: POTASSIUM CHLORIDE 20 MEQ POWDER PACKET NG SCH ×3 (08:45→10:47)
[2020-03-26] MEDS: MEROPENEM 500 MG in IV NS 0.9% 50 ML IV SCH ×2 (09:50→21:00)
[2020-03-26] MEDS: ASPIRIN 325 MG TABLET PO SCH (09:50)
[2020-03-26] MEDS: APIXABAN 5 MG TABLET PO SCH ×2 (10:36→21:02)
[2020-03-26] MEDS: NEPRO 1,000 ML BOTTLE GT PRN (10:42)
--- NOTE | 2020-03-26 20:00 | NUR ---
Received patient intubated on full vent support and sedated on Diprivan gtt at 50mcg infusing via AVINSAH ML site intact.SR/SB 40's with Levophed gtt infusing for BP support and will titrate accordingly to keep SBP>90.With L nare NGT placement verified by aspiration and auscultation.Nepro feeding in progress.No residual noted.Maintained HOB elevated. FC to gravity.No acute distress noted.Turned and repositioned.Continue monitoring.
[2020-03-26] MEDS: INSULIN GLARGINE, 100 UNIT/ML CARTRIDGE SQ SCH (21:19)
[2020-03-26] MEDS: IV NS 0.9% 250 ML IV PRN (23:52)
[2020-03-27] VITALS (87 sets, daily range): BP systolic 73–148; BP diastolic 21–74
--- NOTE | 2020-03-27 | NUR ---
FSBS monitored Q 6 hrs and coverage given per sliding scale. Turned and repositioned.
[2020-03-27] MEDS: BLOOD SUGAR DIAGNOSTIC 1 EACH STRIP IN SCH ×5 (00:02→23:49)
[2020-03-27] MEDS: PROPOFOL 10MG/ML 50ML 50 ML IV PRN ×11 (00:34→22:02)
--- NOTE | 2020-03-27 02:00 | NUR ---
Incontinent of large loose stools.Kept clean and dry.Bed bath rendered.Turned and repositioned.
[2020-03-27 05:08] LABS: BASOPHILS % (AUTO) 0.3 % (0.0-2.0); EOSINOPHILS % (AUTO) 2.5 % (0.0-6.0); HEMATOCRIT 37 % (33-45); LYMPHOCYTES # (AUTO) 0.5 /CMM (0.8-4.8); LYMPHOCYTES % (AUTO) 6.2 % (20.0-44.0); MEAN CORPUSCULAR HGB CONC 33 g/dl (31.0-36.0); MEAN CORPUSCULAR VOLUME 91 fL (82-100); MONOCYTES # (AUTO) 0.2 /CMM (0.1-1.30); MONOCYTES % (AUTO) 2.7 % (2.0-12.0); NEUTROPHILS # (AUTO) 7.7 /CMM (1.8-8.9); NEUTROPHILS % (AUTO) 88.3 % (43.0-81.0); PLATELET COUNT (AUTO) 153 /CMM (150-450); RED BLOOD CELL COUNT(AUTO) 4.02 MIL/uL (4.0-5.2); WHITE BLOOD COUNT (AUTO) 8.7 K/uL (4.3-11.0)
[2020-03-27] MEDS: HYDROCORTISONE SOD SUCCINATE 100 MG/2 ML VIAL IV SCH ×3 (05:24→21:32)
[2020-03-27 05:29] LABS: CALCIUM, SERUM 8.9 mg/dL (8.5-10.1); CREATININE 0.9 mg/dL (0.6-1.3); POTASSIUM 4.3 mmol/L (3.5-5.1)
[2020-03-27] MEDS: INSULIN REGULAR, HUMAN 100 UNIT/ML 3 ML VIAL SQ PRN ×4 (05:53→22:33)
--- NOTE | 2020-03-27 07:35 | NUR ---
Patient remains sedated.No significant change noted.All needs met.Report given to WENCESLAO Dickinson.
--- NOTE | 2020-03-27 08:00 | NUR ---
NURSE TECHNICIAN NOTES Patient received in bed sedated. Patient on ETT /VENT setting with O2 saturation reading of 97%. No distress noted. IV line to AVINASH midline patent and free of s/s of infection with IV medication Diprivan running at 30 mc/kg/hr and levophed @ 0.03 mcg/kg/min. Patient's bed is in lowest position. Head of the bed kept elevated for aspiration prevention. Patient's Ng tube checked for patency and residual. Will continue to monitor. Call light with in reach.
--- NOTE | 2020-03-27 08:05 | NUR ---
RN OPENING NOTES PATIENT PRESENT IN BED, TOLERATING VENT SETTINGS WELL, SPO2 IS 97% AT THIS MOMENT, RESPIRATIONS EVEN AND UNLABORED, NO S/SX OF REP DISTRESS NOTED, PATIENT IS ISOLATED FOR COVID-19, PATIENT IS SEDATED, RESTING COMFORTABLY, [id number] READINGS IS [id number] AT THIS MOMENT, NG TUBE NOTED IN PLACE, RUNNING FEEDING FORMULA @ 30 CC/HR, TOLERATING WELL, NO RESIDUAL NOTED, AUSCULTATED PLACATED, FLUSHED WELL, L UA ,MIDLINE NOTED, INTACT, PATENT AND FLUSHED, DRESSING IS INTACT AND CLEAN. SAFETY MEASURES IMPLEMENTED, BED LOCKED, IN LOWEST POSITION, CALL LIGHT IN REACH, HOB ELEVATED, WILL CONT TO MONITOR
--- NOTE | 2020-03-27 09:30 | NUR ---
RN NOTE Per Dr Germain, no sedation vacation for patient today
[2020-03-27] MEDS: MEROPENEM 500 MG in IV NS 0.9% 50 ML IV SCH ×2 (09:44→21:31)
[2020-03-27] MEDS: ASPIRIN 325 MG TABLET PO SCH (09:44)
[2020-03-27] MEDS: APIXABAN 5 MG TABLET PO SCH ×2 (11:32→21:48)
[2020-03-27] MEDS: NOREPINEPHRINE 8 MG in IV NS 0.9% 242 ML IV PRN (12:12)
[2020-03-27] MEDS: NEPRO 1,000 ML BOTTLE GT PRN (13:22)
--- NOTE | 2020-03-27 18:37 | NUR ---
RN CLOSING NOTES Patient continues to be sedated on diprivan and levophed. Flow rate remained the same during shift. No distress noted. Kept clean and dry. Medication given . NG tube flushed as ordered. Arias cath intact and noted with 600 cc of urine output during shift. Will endorse to next shift for FLIP.
--- NOTE | 2020-03-27 20:29 | NUR ---
RT NOTE PT RECEIVED INTUBATED WITH 7.0 @ 22 CM. AMBU BAG @ HOB. BILATERAL CHEST RISE NOTED. SX DONE, ET TUBE SECURED AND PATENT. ALARMS ON AND AUDIBLE. NO DISTRESS NOTED. WILL CONTINUE TO MONITOR T/O SHIFT. Addendum: 03/27/20 at 2030 by EDWIN ELAM RT Amended: Links added.
[2020-03-27] MEDS: INSULIN GLARGINE, 100 UNIT/ML CARTRIDGE SQ SCH (22:32)
[2020-03-27] MEDS ORDERED: CEFTRIAXONE 1 G VIAL ONE ×2 (23:11→23:14)
[2020-03-27] MEDS: CEFTRIAXONE 2 G in IV D5W 100 ML IV SCH (23:16)
[2020-03-28] VITALS (81 sets, daily range): BP systolic 61–189; BP diastolic 26–115
[2020-03-28] MEDS: PROPOFOL 10MG/ML 50ML 50 ML IV PRN ×10 (00:10→21:51)
[2020-03-28 04:37] LABS: BASOPHILS % (AUTO) 0.3 % (0.0-2.0); EOSINOPHILS % (AUTO) 1.4 % (0.0-6.0); HEMATOCRIT 36 % (33-45); HEMOGLOBIN 11.9 g/dL (11.5-14.8); LYMPHOCYTES # (AUTO) 0.5 /CMM (0.8-4.8); LYMPHOCYTES % (AUTO) 7.2 % (20.0-44.0); MEAN CORPUSCULAR HGB CONC 33 g/dl (31.0-36.0); MEAN CORPUSCULAR VOLUME 92 fL (82-100); MONOCYTES # (AUTO) 0.1 /CMM (0.1-1.30); MONOCYTES % (AUTO) 2.1 % (2.0-12.0); NEUTROPHILS # (AUTO) 6.1 /CMM (1.8-8.9); PLATELET COUNT (AUTO) 125 /CMM (150-450); RED BLOOD CELL COUNT(AUTO) 3.95 MIL/uL (4.0-5.2); WHITE BLOOD COUNT (AUTO) 6.9 K/uL (4.3-11.0)
[2020-03-28 05:07] LABS: CALCIUM, SERUM 8.7 mg/dL (8.5-10.1); POTASSIUM 3.9 mmol/L (3.5-5.1)
--- NOTE | 2020-03-28 05:18 | NUR ---
Patient had 3 watery stools in 24 hours, so cdiff form filled out as well as, on [employer]. Sample taken, double bagged and delivered to lab. Filled out cdiff log folder and endorsed sample to laborer.
[2020-03-28] MEDS: HYDROCORTISONE SOD SUCCINATE 100 MG/2 ML VIAL IV SCH ×3 (05:36→21:51)
[2020-03-28] MEDS: BLOOD SUGAR DIAGNOSTIC 1 EACH STRIP IN SCH ×3 (05:36→16:59)
[2020-03-28] MEDS: INSULIN REGULAR, HUMAN 100 UNIT/ML 3 ML VIAL SQ PRN ×3 (05:59→17:01)
--- NOTE | 2020-03-28 08:00 | NUR ---
RN NOTES RECEIVED PATIENT IN BED, TOLERATING VENT SETTINGS WELL, SPO2 IS 97% AT THIS TIME, RESPIRATIONS EVEN AND UNLABORED, NO S/SX OF REP DISTRESS NOTED, PATIENT IS ISOLATED FOR COVID-19, PATIENT IS SEDATED, RESTING COMFORTABLY, [id number] READINGS IS SR-72, NG TUBE PLACEMENT AND RESIDUAL CHECKED. RUNNING FEEDING NEPRO @ 30 CC/HR, TOLERATING WELL, FLUSHED WELL, L UA ,MIDLINE INTACT, PATENT AND FLUSHED, DRESSING IS INTACT AND CLEAN. INFUSING DIPRIVAN 50MCG, AND LEVOPHED 0.01MCG INTACT. LOBATO DRAINING DARK YELLOW OUTPUT, RECTAL TUBE INTACT, ASSIST TURN AND REPOSITION Q 2 HR, KEEP HOB ELEVATED FOR ASPIRATION PRECAUTION. SAFETY MEASURES IMPLEMENTED, BED LOCKED, IN LOWEST POSITION, CALL LIGHT IN REACH, WILL CONTINUED TO MONITORING.
[2020-03-28] MEDS: ASPIRIN 325 MG TABLET PO SCH (08:47)
[2020-03-28] MEDS: NOREPINEPHRINE 8 MG in IV NS 0.9% 242 ML IV PRN (09:11)
[2020-03-28] MEDS: DOXYCYCLINE 100 MG in IV D5W 100 ML IV SCH ×2 (11:54→21:51)
[2020-03-28] MEDS: APIXABAN 5 MG TABLET PO SCH ×2 (11:57→22:52)
[2020-03-28] MEDS: IV NS 0.9% 250 ML IV PRN (14:51)
[2020-03-28] MEDS: NEPRO 1,000 ML BOTTLE GT PRN (15:01)
--- NOTE | 2020-03-28 18:30 | NUR ---
RN NOTES PM CARE DONE, SUCTION, TOLERATING VENT SETTINGS WELL, SPO2 IS 97% AT THIS TIME, RESPIRATIONS EVEN AND UNLABORED. RESTING COMFORTABLY BS-328MG/DL, COVERAGE GIVEN, NG TUBE RESIDUAL CHECKED. RUNNING FEEDING NEPRO @ 30 CC/HR, TOLERATING WELL, FLUSHED WELL, AVINASH MIDLINE INTACT, PATENT AND FLUSHED, INFUSING DIPRIVAN 50MCG, AND LEVOPHED 0.08MCG INTACT. LOBATO DRAINING DARK YELLOW OUTPUT 300ML. RECTAL TUBE INTACT, ASSIST TURN AND REPOSITION Q 2 HR, KEEP HOB ELEVATED FOR ASPIRATION PRECAUTION. ENDORSED ONCOMING NURSE FOLLOW PLAN OF CARE.
[2020-03-28] MEDS: CEFTRIAXONE 2 G in IV D5W 100 ML IV SCH (22:53)
[2020-03-29] VITALS (93 sets, daily range): BP systolic 62–147; BP diastolic 27–79
[2020-03-29] MEDS: PROPOFOL 10MG/ML 50ML 50 ML IV PRN ×10 (00:10→21:51)
[2020-03-29] MEDS: INSULIN GLARGINE, 100 UNIT/ML CARTRIDGE SQ SCH (00:58)
[2020-03-29] MEDS: BLOOD SUGAR DIAGNOSTIC 1 EACH STRIP IN SCH ×4 (00:58→17:20)
[2020-03-29] MEDS: INSULIN REGULAR, HUMAN 100 UNIT/ML 3 ML VIAL SQ PRN ×4 (00:59→17:23)
[2020-03-29 04:48] LABS: BASOPHILS # (AUTO) 0.1 /CMM (0.0-0.2); BASOPHILS % (AUTO) 0.7 % (0.0-2.0); EOSINOPHILS % (AUTO) 5.8 % (0.0-6.0); HEMATOCRIT 34 % (33-45); HEMOGLOBIN 11.3 g/dL (11.5-14.8); LYMPHOCYTES # (AUTO) 0.5 /CMM (0.8-4.8); LYMPHOCYTES % (AUTO) 5.1 % (20.0-44.0); MEAN CORPUSCULAR HGB CONC 33 g/dl (31.0-36.0); MEAN CORPUSCULAR VOLUME 92 fL (82-100); MONOCYTES # (AUTO) 0.1 /CMM (0.1-1.30); MONOCYTES % (AUTO) 1.5 % (2.0-12.0); NEUTROPHILS # (AUTO) 8.8 /CMM (1.8-8.9); NEUTROPHILS % (AUTO) 86.9 % (43.0-81.0); PLATELET COUNT (AUTO) 114 /CMM (150-450); RED BLOOD CELL COUNT(AUTO) 3.73 MIL/uL (4.0-5.2); WHITE BLOOD COUNT (AUTO) 10.1 K/uL (4.3-11.0)
[2020-03-29 04:59] LABS: CALCIUM, SERUM 8.7 mg/dL (8.5-10.1); CARBON DIOXIDE 28 mmol/L (21-32); CHLORIDE 117 mmol/L (98-107); CREATININE 0.9 mg/dL (0.6-1.3); GLUCOSE 192 mg/dL (74-106); POTASSIUM 3.7 mmol/L (3.5-5.1); SODIUM SERUM 154 mmol/L (136-145); UREA NITROGEN, BLOOD 40 mg/dL (7-18)
[2020-03-29] MEDS: HYDROCORTISONE SOD SUCCINATE 100 MG/2 ML VIAL IV SCH ×3 (05:57→23:10)
[2020-03-29] MEDS: NOREPINEPHRINE 8 MG in IV NS 0.9% 242 ML IV PRN (06:25)
--- NOTE | 2020-03-29 08:09 | NUR ---
DATA ENTRY SPECIALIST NOTES RECEIVED PATIENT VENT SETTINGS TOLERATED WELL, SPO2 IS 90% AT THIS TIME, RESPIRATIONS EVEN AND UNLABORED, NO S/SX OF REP DISTRESS NOTED, PATIENT IS ISOLATED FOR COVID-19, SEDATED, [id number] READINGS IS SR-65, NG TUBE PLACEMENT AND RESIDUAL CHECKED. RUNNING FEEDING NEPRO @ 30 CC/HR, TOLERATING WELL, FLUSHED WELL, AVINASH MIDLINE INTACT, PATENT AND FLUSHED, DRESSING IS INTACT AND CLEAN. INFUSING DIPRIVAN 50MCG, AND LEVOPHED 0.03MCG INTACT. LOBATO DRAINING DARK YELLOW OUTPUT, RECTAL TUBE INTACT, ASSIST TURN AND REPOSITION Q 2 HR, KEEP HOB ELEVATED FOR ASPIRATION PRECAUTION. SAFETY MEASURES IMPLEMENTED, BED LOCKED, IN LOWEST POSITION, CALL LIGHT IN REACH, WILL CONTINUED TO MONITORING.
[2020-03-29] MEDS: ASPIRIN 325 MG TABLET PO SCH (09:54)
[2020-03-29] MEDS: DOXYCYCLINE 100 MG in IV D5W 100 ML IV SCH (09:56)
[2020-03-29] MEDS: APIXABAN 5 MG TABLET PO SCH ×2 (09:57→23:10)
[2020-03-29] MEDS: PROSOURCE / PROSTAT (PYXIS) 30 ML UDC GT SCH (16:31)
[2020-03-29] MEDS: GLUCERNA 1.2 1,000 ML BOTTLE NG PRN (17:24)
--- NOTE | 2020-03-29 18:00 | NUR ---
RN NOTES PM CARE DONE, ADMINISTERED SCHEDULED MEDICATION, BS-265 MG/DL COVERAGE GIVEN, TARTRATED LEVOPHED 0,1 MCG, AND DIPRIVAN 40 MCG PER PROTOCOL, SEDATION VACATION DONE,STARTED GLUCERNA 1.2 AT 15 CC/HR NGT FEEDING, PATIENT TOLERATED WELL, NO ACUTE RESPIRATORY DISTRESS. ASSIST TURN AND REPOSTION Q 2 HR. LOBATO DRAINING LIGHT YELLOW OUTPUT. ENDORSED ONCOMING NURSE FOLLOW PLAN OF CARE.
[2020-03-30] VITALS (71 sets, daily range): BP systolic 63–134; BP diastolic 27–64
[2020-03-30] MEDS: BLOOD SUGAR DIAGNOSTIC 1 EACH STRIP IN SCH ×4 (00:19→17:11)
[2020-03-30] MEDS: INSULIN GLARGINE, 100 UNIT/ML CARTRIDGE SQ SCH ×2 (00:29→21:36)
[2020-03-30] MEDS: INSULIN REGULAR, HUMAN 100 UNIT/ML 3 ML VIAL SQ PRN ×4 (00:31→17:09)
[2020-03-30] MEDS: PROPOFOL 10MG/ML 50ML 50 ML IV PRN ×8 (00:35→22:15)
[2020-03-30] MEDS: NOREPINEPHRINE 8 MG in IV NS 0.9% 242 ML IV PRN ×2 (04:44→16:11)
[2020-03-30 04:50] LABS: BASOPHILS % (AUTO) 0.1 % (0.0-2.0); EOSINOPHILS % (AUTO) 8.8 % (0.0-6.0); HEMATOCRIT 34 % (33-45); HEMOGLOBIN 11.2 g/dL (11.5-14.8); LYMPHOCYTES # (AUTO) 0.2 /CMM (0.8-4.8); LYMPHOCYTES % (AUTO) 2.9 % (20.0-44.0); MEAN CORPUSCULAR HGB CONC 33 g/dl (31.0-36.0); MEAN CORPUSCULAR VOLUME 92 fL (82-100); MONOCYTES # (AUTO) 0.2 /CMM (0.1-1.30); MONOCYTES % (AUTO) 2.8 % (2.0-12.0); NEUTROPHILS # (AUTO) 7.1 /CMM (1.8-8.9); NEUTROPHILS % (AUTO) 85.4 % (43.0-81.0); PLATELET COUNT (AUTO) 112 /CMM (150-450); RED BLOOD CELL COUNT(AUTO) 3.74 MIL/uL (4.0-5.2); WHITE BLOOD COUNT (AUTO) 8.4 K/uL (4.3-11.0)
[2020-03-30 04:54] LABS: CALCIUM, SERUM 8.4 mg/dL (8.5-10.1); CREATININE 0.7 mg/dL (0.6-1.3); POTASSIUM 3.3 mmol/L (3.5-5.1)
[2020-03-30] MEDS: HYDROCORTISONE SOD SUCCINATE 100 MG/2 ML VIAL IV SCH ×3 (05:11→21:35)
--- NOTE | 2020-03-30 07:58 | NUR ---
ANCILLARY SPECIALIST NOTES PATIENT IN BED, SEDATED WITH ETT TUBE TO VENT SETTING ORDERED DIPRIVAN 40 MCG PER PROTOCOL, SEDATION VACATION DONE,STARTED GLUCERNA 1.2 AT 15 CC/HR NGT FEEDING, PATIENT TOLERATED WELL, NO ACUTE RESPIRATORY DISTRESS. . LOBATO DRAINING LIGHT YELLOW OUTPUT. ON LEVOPHED DRIP ORDERED WILL MONITOR
[2020-03-30] MEDS: ASPIRIN 325 MG TABLET PO SCH (08:05)
[2020-03-30] MEDS: PROSOURCE / PROSTAT (PYXIS) 30 ML UDC GT SCH ×3 (08:05→16:11)
[2020-03-30] MEDS: APIXABAN 5 MG TABLET PO SCH ×2 (08:07→21:39)
[2020-03-30] MEDS ORDERED: POTASSIUM CHLORIDE 20 MEQ POWDER PACKET NG SCH (09:30)
--- NOTE | 2020-03-30 10:27 | NUR ---
agricultural equipment salesperson note dr carlos at bedside aware that patient was on propofol sedation ,cant tolerated, rr increasing and desaturation noted, ok to restart drip also placed 50 % fio2 but desaturated, by rt placed back to fio2 60%, will monitor
--- NOTE | 2020-03-30 11:57 | NUR ---
precision agriculture specialist note spoke with gadiel rodríguez music executive stated that will renew restrain
--- NOTE | 2020-03-30 13:00 | NUR ---
SHEET PILE HAMMER OPERATOR NOTE ALL NEEDS ATTENDED,ETT SUCTION ,TURN REPOSITION CONT ON PROPOFOL DRIP ORDERED
--- NOTE | 2020-03-30 15:57 | NUR ---
DIRECTOR OF EVENT MARKETING NOTE ON PROPOFOL DRIP AT 40 MCG KG MIN PER PROTOCOL ORDERED, CONT N G TUBE FEEDING, WILL MONITOR
--- NOTE | 2020-03-30 18:44 | NUR ---
INDUSTRIAL PLANT CUSTODIAN NOTE CONT ON VENT SETTING AND PROPOFOL AND LEVOPHED DRIP ORDERED PER PROTOCOL, N G TUBE FEEDING IN PLACE, PLACEMENT CHECKED BY AUSULTATION BY AIR ,KEEP HOB ELEVATED ART ALL TIME, WITH RECTAL TUBE AND LOBATO CATH WILL CONT TO MONITOR
--- NOTE | 2020-03-30 20:00 | NUR ---
Received patient non verbal intubated on full vent support.Sedated on Dirivan gtt at 40 mcg. VSS,SR on Levophed gtt for BP support and will titrate accordingly to keep SBP>90.OGT feeding infusing.Placement verified patent and no residual noted.Maintain HOB elevated.FC to gravity drainage.With liquid stool and flexi seal in placed.Turned and repositioned.No acute distress noted.
[2020-03-30] MEDS: IV NS 0.9% 250 ML IV PRN (22:07)
[2020-03-31] VITALS (87 sets, daily range): BP systolic 83–169; BP diastolic 32–99
--- NOTE | 2020-03-31 | NUR ---
Patient remains sedated.No acute distress noted.FSBS monitored and coverage administered per sliding scale.Turned and repositioned.
[2020-03-31] MEDS: BLOOD SUGAR DIAGNOSTIC 1 EACH STRIP IN SCH ×5 (00:09→23:13)
[2020-03-31] MEDS: INSULIN REGULAR, HUMAN 100 UNIT/ML 3 ML VIAL SQ PRN ×5 (00:13→23:14)
[2020-03-31] MEDS: NOREPINEPHRINE 8 MG in IV NS 0.9% 242 ML IV PRN ×2 (00:50→11:38)
[2020-03-31] MEDS: PROPOFOL 10MG/ML 50ML 50 ML IV PRN ×9 (01:01→19:38)
[2020-03-31] MEDS: HYDROCORTISONE SOD SUCCINATE 100 MG/2 ML VIAL IV SCH ×3 (06:11→21:34)
--- NOTE | 2020-03-31 07:30 | NUR ---
RN OPENING NOTE Received patient in bed, sedated[facility] tolerating settings well, spo2 is 95%, respirations even and unlabored. tele-monotr readings is sinus rhythm 70s,nevarez cath in place draining yellow urine by gravity, flexi seal in place draining brown liquid stool, both intact and patent . Midline noted on left upper arm patent and intatc, patient on IV drips: Propofol @ 40meg/kg/min and Levo @ 0.07, tolerating well, monitoring closely. NG tube present, patent, auscultated, placement verified, running feeding @15 cc/hr, tolerating well. Safety measures in place, bed is locked, in lowest position, HOB elevated ,will cont to monitor
--- NOTE | 2020-03-31 07:42 | NUR ---
Patient status unchanged.Continued on Levophed gtt and Diprivan gtt.All needs met. Report given to day shift RN for giselle.
[2020-03-31] MEDS: PROSOURCE / PROSTAT (PYXIS) 30 ML UDC GT SCH ×3 (09:23→17:36)
[2020-03-31] MEDS: ASPIRIN 325 MG TABLET PO SCH (09:23)
[2020-03-31] MEDS: APIXABAN 5 MG TABLET PO SCH ×2 (09:25→21:37)
--- NOTE | 2020-03-31 11:32 | NUR ---
rn note unable to tolerate sedation vacation,had mild agitation on 20mcg/kg, SPO2 was on 80s, put her back on previous rate
[2020-03-31 11:44] LABS: BASOPHILS % (AUTO) 0.5 % (0.0-2.0); EOSINOPHILS % (AUTO) 7.7 % (0.0-6.0); HEMATOCRIT 31 % (33-45); HEMOGLOBIN 10.1 g/dL (11.5-14.8); LYMPHOCYTES # (AUTO) 0.4 /CMM (0.8-4.8); LYMPHOCYTES % (AUTO) 6.1 % (20.0-44.0); MEAN CORPUSCULAR HGB CONC 33 g/dl (31.0-36.0); MEAN CORPUSCULAR VOLUME 91 fL (82-100); MONOCYTES # (AUTO) 0.2 /CMM (0.1-1.30); MONOCYTES % (AUTO) 2.7 % (2.0-12.0); NEUTROPHILS # (AUTO) 5.9 /CMM (1.8-8.9); PLATELET COUNT (AUTO) 99 /CMM (150-450); RED BLOOD CELL COUNT(AUTO) 3.37 MIL/uL (4.0-5.2); WHITE BLOOD COUNT (AUTO) 7.1 K/uL (4.3-11.0)
[2020-03-31 12:00] LABS: CALCIUM, SERUM 8.3 mg/dL (8.5-10.1); CREATININE 0.9 mg/dL (0.6-1.3); PHOSPHORUS 3.2 mg/dL (2.5-4.9); POTASSIUM 3.4 mmol/L (3.5-5.1)
[2020-03-31] MEDS: GLUCERNA 1.2 1,000 ML BOTTLE NG PRN (17:35)
--- NOTE | 2020-03-31 19:25 | NUR ---
Rn closing notes Patient remains in bed, tolerating vent settings well settings well, [id number] no acute distress or signs of pain or discomfort noted during shift; comfort needs provided, medications given, IV line patent, Arias cath patent, safety measures implemented, bed in lowest position, HOB elevated, call light in reach, will endorse to PM shift RN for FLIP
[2020-03-31] MEDS: INSULIN GLARGINE, 100 UNIT/ML CARTRIDGE SQ SCH (23:13)
[2020-04-01] VITALS (89 sets, daily range): BP systolic 86–148; BP diastolic 31–77
[2020-04-01] MEDS: PROPOFOL 10MG/ML 50ML 50 ML IV PRN ×8 (00:28→22:08)
[2020-04-01] MEDS ORDERED: NOREPINEPHRINE 4 MG/4 ML AMPUL IV ONE (01:39)
[2020-04-01] MEDS: NOREPINEPHRINE 8 MG in IV NS 0.9% 242 ML IV PRN ×2 (01:43→14:59)
[2020-04-01 05:01] LABS: ABG BASE EXCESS 1.4 mmol/L; ABG OXYGEN SATURATION 77.4 % (92.0-98.5); ABG PCO2 43.2 mmHg (35.0-45.0); ABG PH 7.404 (7.350-7.450); ABG PO2 42.5 mmHg (75.0-100.0); AaDO2 446.4 mmHg; COHb 0.7 % (0.5-1.5); MetHb 0.1 % (0.0-1.5); O2Hb 76.8 % (94.0-97.0); PEEP,BG 5 cm H2O; SITE, ABG Right Radial; VENT MODE, BG AC 24 400 75% +5; VT, ABG 400 mL
[2020-04-01] MEDS: HYDROCORTISONE SOD SUCCINATE 100 MG/2 ML VIAL IV SCH ×3 (05:24→21:01)
[2020-04-01] MEDS: INSULIN REGULAR, HUMAN 100 UNIT/ML 3 ML VIAL SQ PRN ×4 (05:32→23:36)
[2020-04-01] MEDS: BLOOD SUGAR DIAGNOSTIC 1 EACH STRIP IN SCH ×4 (05:32→23:35)
--- NOTE | 2020-04-01 07:45 | NUR ---
RN OPENING NOTE Patient in bed, sedated ON PROPOFOL @40MCG/KG/MIN, on mech vent, tolerating settings well, spo2 is 95%, respirations even and unlabored. tele-monotr readings is sinus rhythm 70s,nevarez cath in place draining yellow urine by gravity, Midline noted on left upper arm patent and INTACT AND S/S OF INFILTRATION OR INFECTION NOTED, patient on IV drips: Propofol @ 40meg/kg/min and Levo @ 0.07, tolerating well, monitoring closely. NG tube present, patent, auscultated, AND VERIFIED WITH THE SECOND NURSE ROSMERY placement verified, running feeding @15 cc/hr, tolerating well. Safety MEASUREMENTS ARE IMPLEMENTED PER HOSPITAL POLICY, BED IS IN THE LOWEST POSITION, LOCKED AND SIDE RAILS ARE UP X2. WILL CONTINUE TO MONITOR
[2020-04-01] MEDS: ASPIRIN 325 MG TABLET PO SCH (09:12)
[2020-04-01] MEDS: PROSOURCE / PROSTAT (PYXIS) 30 ML UDC GT SCH ×3 (09:13→16:30)
[2020-04-01] MEDS: APIXABAN 5 MG TABLET PO SCH ×2 (09:14→21:00)
[2020-04-01 10:25] LABS: ABG BASE EXCESS 2.9 mmol/L; ABG OXYGEN SATURATION 95.2 % (92.0-98.5); ABG PCO2 44.2 mmHg (35.0-45.0); ABG PH 7.417 (7.350-7.450); ABG PO2 79.3 mmHg (75.0-100.0); AaDO2 589.5 mmHg; COHb 0.4 % (0.5-1.5); MetHb 0.3 % (0.0-1.5); O2Hb 94.5 % (94.0-97.0); PEEP,BG 5 cm H2O; SITE, ABG Left Radial; VT, ABG 400 mL
--- NOTE | 2020-04-01 11:02 | NUR ---
RN NOTES vent changes per dr. carlos: fio2 85%
--- NOTE | 2020-04-01 11:02 | NUR ---
vent changes per dr. carlos: fio2 85% Addendum: 04/01/20 at 1102 by JANEY DECKER RT Amended: Links added.
[2020-04-01 11:21] LABS: BASOPHILS % (AUTO) 0.7 % (0.0-2.0); EOSINOPHILS % (AUTO) 13.1 % (0.0-6.0); HEMATOCRIT 30 % (33-45); HEMOGLOBIN 9.8 g/dL (11.5-14.8); LYMPHOCYTES # (AUTO) 0.6 /CMM (0.8-4.8); LYMPHOCYTES % (AUTO) 8.1 % (20.0-44.0); MEAN CORPUSCULAR HGB CONC 33 g/dl (31.0-36.0); MEAN CORPUSCULAR VOLUME 92 fL (82-100); MONOCYTES # (AUTO) 0.2 /CMM (0.1-1.30); MONOCYTES % (AUTO) 3.2 % (2.0-12.0); NEUTROPHILS # (AUTO) 5.7 /CMM (1.8-8.9); NEUTROPHILS % (AUTO) 74.9 % (43.0-81.0); PLATELET COUNT (AUTO) 104 /CMM (150-450); RED BLOOD CELL COUNT(AUTO) 3.23 MIL/uL (4.0-5.2); WHITE BLOOD COUNT (AUTO) 7.6 K/uL (4.3-11.0)
[2020-04-01 11:31] LABS: CALCIUM, SERUM 8.2 mg/dL (8.5-10.1); CREATININE 0.8 mg/dL (0.6-1.3); PHOSPHORUS 3.2 mg/dL (2.5-4.9); POTASSIUM 2.9 mmol/L (3.5-5.1)
[2020-04-01 12:05] LABS: BAND % (MANUAL) 1 % (0.0-5.0); EOSINOPHILS % (MANUAL) 8 % (0-4); LYMPHOCYTES % (MANUAL) 8 % (16-48); MONOCYTES % (MANUAL) 4 % (0-11.0); NEUTROPHILS % (MANUAL) 79 (42-76)
[2020-04-01] MEDS: POTASSIUM CL. PREMIX PERIPHER. 50 ML IV SCH ×4 (13:51→16:30)
--- NOTE | 2020-04-01 15:03 | NUR ---
PEEP +[address] ALCARAZ. Addendum: 04/01/20 at 1504 by JANEY DECKER RT Amended: Links added.
--- NOTE | 2020-04-01 18:30 | NUR ---
RN CLOSING NOTE Patient IN BED sedated ON PROPOFOL @40MCG/KG/MIN, [facility] tolerating settings well, spo2 is 85%, respirations even and unlabored AND sinus rhythm 70s,nevarez cath in place draining yellow urine by gravity, Midline noted on left upper arm patent and INTACT AND S/S OF INFILTRATION OR INFECTION NOTED, patient on IV drips: Propofol @ 40meg/kg/min and Levo @ 0.07, tolerating well, monitoring closely. NG tube present, patent, auscultated, AND VERIFIED WITH THE SECOND NURSE ROSMERY placement verified, running feeding @15 cc/hr, tolerating well. Safety MEASUREMENTS ARE IMPLEMENTED PER HOSPITAL POLICY, BED IS IN THE LOWEST POSITION, LOCKED AND SIDE RAILS ARE UP X2. WILL ENDORSE TO PM NURSE FOR FLIP
--- NOTE | 2020-04-01 20:30 | NUR ---
ELIQUIS NOT GIVEN DUE TO PT RESIDUAL IS COLORED COFFEE GROUND CHARGE NURSE AND MD MADE AWARE
[2020-04-01] MEDS: INSULIN GLARGINE, 100 UNIT/ML CARTRIDGE SQ SCH (21:47)
[2020-04-02] VITALS (95 sets, daily range): BP systolic 63–171; BP diastolic 28–81
[2020-04-02] MEDS: PROPOFOL 10MG/ML 50ML 50 ML IV PRN ×11 (00:56→21:28)
[2020-04-02] MEDS: NOREPINEPHRINE 8 MG in IV NS 0.9% 242 ML IV PRN (01:16)
--- NOTE | 2020-04-02 03:58 | NUR ---
REPORTED TO SAEED BACK WAREHOUSE DISTRIBUTION SPECIALIST ABOUT THE EPISODE OF BRADYCARDIA OF THE PT IN LOWS 40'S WITH ORDER TO CHANGES LEVOPHED TO DOPAMINE TITRATE PER PROTOCOL AND STAT TROPONIN AND EKG NOTED AND CARRIED OUT
[2020-04-02] MEDS: IV NS 0.9% 250 ML IV PRN (04:00)
--- NOTE | 2020-04-02 04:00 | NUR ---
RT NOTE PT REC'D ORALLY INTUBATED VIA ETT SZ 7.0 SECURED AT 22 CM AT THE LIPLINE. PT ON [facility] VENT ON NOTED SETTINGS CHARTED. PT SX'D FOR MOD AMT OF BLOOD TINGED SECRETIONS. ALARMS ARE SET AND AUDIBLE. AMBU BAG BEDSIDE. VENT PLUGGED INTO RED OUTLET. WILL CONTINUE TO MONITOR CLOSELY. Addendum: 04/02/20 at 0401 by FIDELIA LYONS RT Amended: Links added.
[2020-04-02] MEDS ORDERED: DOPamine 400MG/D5W 250ML RTU 250 ML ONE (04:13)
[2020-04-02] MEDS: DOPamine 400 MG in IV D5W 250 ML IV PRN ×2 (04:20→17:53)
[2020-04-02] MEDS: HYDROCORTISONE SOD SUCCINATE 100 MG/2 ML VIAL IV SCH ×3 (05:41→21:27)
[2020-04-02 06:04] LABS: ABG BASE EXCESS 3.1 mmol/L; ABG OXYGEN SATURATION 87.6 % (92.0-98.5); ABG PCO2 44.4 mmHg (35.0-45.0); ABG PH 7.418 (7.350-7.450); ABG PO2 53.1 mmHg (75.0-100.0); AaDO2 615.5 mmHg; COHb 0.5 % (0.5-1.5); MetHb 0.1 % (0.0-1.5); O2Hb 87.1 % (94.0-97.0); SITE, ABG Left Radial
[2020-04-02 06:42] LABS: CALCIUM, SERUM 8.1 mg/dL (8.5-10.1); CARBON DIOXIDE 30 mmol/L (21-32); CHLORIDE 112 mmol/L (98-107); CREATININE 0.7 mg/dL (0.6-1.3); GLUCOSE 241 mg/dL (74-106); MAGNESIUM 2.1 mg/dL (1.8-2.4); POTASSIUM 3.2 mmol/L (3.5-5.1); SODIUM SERUM 150 mmol/L (136-145); UREA NITROGEN, BLOOD 25 mg/dL (7-18)
[2020-04-02] MEDS: BLOOD SUGAR DIAGNOSTIC 1 EACH STRIP IN SCH ×4 (06:57→23:01)
[2020-04-02] MEDS: INSULIN REGULAR, HUMAN 100 UNIT/ML 3 ML VIAL SQ PRN ×4 (06:59→22:38)
--- NOTE | 2020-04-02 07:05 | NUR ---
RN NOTES RECEIVED PATIENT SEDATED, ON VENT WITH SETTING OF AC 24, TV 400, FIO2 100% AND PEEP OF 8, TOLERATING CURRENT SETTING, IV ACCESS ON AVINASH MIDLINE WITH PROPOFOL RUNNING @ 40, AND DOPAMINE @5. FC INTACT DRAINING FREELY VIA GRAVITY, NOTED WITH NGT FEEDING WITH GLUCERNA @15ML/HR WITH 10CC OF RSV. SAFETY MEASURES IN PLACE, WILL CONTINUE TO MONITOR. Addendum: 04/02/20 at 0910 by RADHA HENDERSON RN LOBATO CATHETER DRAINING WITH CLEAR YELLOW URINE, NO SIGNS OF BLEEDING.
[2020-04-02] MEDS: GLUCERNA 1.2 1,000 ML BOTTLE NG PRN (07:21)
[2020-04-02] MEDS: ASPIRIN 325 MG TABLET PO SCH (08:11)
[2020-04-02] MEDS: PROSOURCE / PROSTAT (PYXIS) 30 ML UDC GT SCH ×3 (08:11→16:33)
[2020-04-02] MEDS: POTASSIUM CHLORIDE 20 MEQ TAB.PRT.SR PO SCH ×3 (08:11→10:12)
[2020-04-02] MEDS: APIXABAN 5 MG TABLET PO SCH ×2 (08:15→21:29)
--- NOTE | 2020-04-02 13:00 | NUR ---
RN NOTES TRYGLYCERIDES OF 284, DR. ALCARAZ AWARE. NNO, WILL CONTINUE TO MONITOR.
[2020-04-02 13:01] LABS: CHOLESTEROL 197 mg/dL (<200); HDL CHOLESTEROL 33 mg/dL (40-60); LDL 124 mg/dL (0-99); TRIGLYCERIDES 284 mg/dL (30-150)
--- NOTE | 2020-04-02 19:30 | NUR ---
RADIAL ARM SAW OPERATOR RCD PT COVID PNA; PT IS SEDATED ON PROPOFOL 2 50 MCG/KG/MIN. NSR ON MONITOR W/DOPAMINE @5 MCG/KG/MIN FOR BRADYCARDIA. INTUBATED 7 @ 22 W/VENT SETTINGS AC 24 400 80% +10. LEFT NARE NG TUBE W/GLUCERNA @ 15 ML/HR; NO RESIDUAL AT THIS TIME. RECTAL TUBE IN PLACE WITH BROWN LIQUID STOOL. OCHOA/BUTTOCKS EXCORIATION NOTED. AVINASH MIDLINE PATENT; NO BLOOD RETURN AT THIS TIME. CONTINUE TO MONITOR.
[2020-04-02] MEDS: INSULIN GLARGINE, 100 UNIT/ML CARTRIDGE SQ SCH (22:36)
--- NOTE | 2020-04-02 23:50 | NUR ---
RT pt received on mechanical vent with current settings. orally intubated with ett size 7.0, 22 cm. vent plugged in to red outlet. ett secure. ambu bag at [facility]. minimal [employer] suctioned via ett. no sob, no resp distress. will continue to monitor.
[2020-04-03] VITALS (95 sets, daily range): BP systolic 74–168; BP diastolic 19–83
[2020-04-03] MEDS: PROPOFOL 10MG/ML 50ML 50 ML IV PRN ×14 (00:01→23:57)
[2020-04-03 05:10] LABS: ABG BASE EXCESS 5.5 mmol/L; ABG OXYGEN SATURATION 97.4 % (92.0-98.5); ABG PCO2 48.2 mmHg (35.0-45.0); ABG PH 7.422 (7.350-7.450); ABG PO2 101.9 mmHg (75.0-100.0); AaDO2 417.9 mmHg; COHb 0.1 % (0.5-1.5); MetHb 0.1 % (0.0-1.5); O2Hb 97.2 % (94.0-97.0); SITE, ABG Left Radial; VENT MODE, BG AC 24 400 80% +10
[2020-04-03] MEDS: BLOOD SUGAR DIAGNOSTIC 1 EACH STRIP IN SCH ×3 (05:15→17:59)
[2020-04-03] MEDS: INSULIN REGULAR, HUMAN 100 UNIT/ML 3 ML VIAL SQ PRN ×3 (05:25→18:11)
[2020-04-03] MEDS: HYDROCORTISONE SOD SUCCINATE 100 MG/2 ML VIAL IV SCH ×3 (05:27→21:40)
[2020-04-03] MEDS: DOPamine 400 MG in IV D5W 250 ML IV PRN (07:09)
[2020-04-03] MEDS: APIXABAN 5 MG TABLET PO SCH ×2 (08:10→21:43)
[2020-04-03] MEDS: ASPIRIN 325 MG TABLET PO SCH (08:10)
[2020-04-03] MEDS: PROSOURCE / PROSTAT (PYXIS) 30 ML UDC GT SCH ×3 (08:14→16:59)
[2020-04-03] MEDS: GLUCERNA 1.2 1,000 ML BOTTLE NG PRN (08:45)
[2020-04-03] MEDS ORDERED: POTASSIUM CHLORIDE 20 MEQ POWDER PACKET NG ONE (11:00)
[2020-04-03] MEDS ORDERED: NOREPINEPHRINE 8 MG in IV NS 0.9% 242 ML IV PRN (12:30)
[2020-04-03] MEDS: NOREPINEPHRINE 8 MG in IV NS 0.9% 242 ML IV PRN ×2 (13:24→21:41)
[2020-04-03] MEDS: INSULIN GLARGINE, 100 UNIT/ML CARTRIDGE SQ SCH (21:43)
[2020-04-04] VITALS (94 sets, daily range): BP systolic 81–153; BP diastolic 20–113
[2020-04-04] MEDS: BLOOD SUGAR DIAGNOSTIC 1 EACH STRIP IN SCH ×4 (00:35→18:20)
[2020-04-04] MEDS: INSULIN REGULAR, HUMAN 100 UNIT/ML 3 ML VIAL SQ PRN ×4 (00:36→19:52)
[2020-04-04] MEDS: HYDROCORTISONE SOD SUCCINATE 100 MG/2 ML VIAL IV SCH ×3 (04:54→21:27)
[2020-04-04] MEDS: PROPOFOL 10MG/ML 50ML 50 ML IV PRN ×5 (04:57→13:15)
[2020-04-04 05:16] LABS: CALCIUM, SERUM 8.4 mg/dL (8.5-10.1); CREATININE 0.6 mg/dL (0.6-1.3); POTASSIUM 3.1 mmol/L (3.5-5.1)
[2020-04-04 05:24] LABS: ABG BASE EXCESS 5.8 mmol/L; ABG OXYGEN SATURATION 94.7 % (92.0-98.5); ABG PCO2 45.4 mmHg (35.0-45.0); ABG PH 7.446 (7.350-7.450); ABG PO2 72.8 mmHg (75.0-100.0); AaDO2 377.5 mmHg; COHb 0.3 % (0.5-1.5); MetHb 0.3 % (0.0-1.5); O2Hb 94.1 % (94.0-97.0); PEEP,BG 10 cm H2O; SITE, ABG Right Radial
[2020-04-04] MEDS: ASPIRIN 325 MG TABLET PO SCH (08:35)
[2020-04-04] MEDS: PROSOURCE / PROSTAT (PYXIS) 30 ML UDC GT SCH ×3 (08:36→17:16)
[2020-04-04] MEDS: APIXABAN 5 MG TABLET PO SCH ×2 (08:37→21:28)
--- NOTE | 2020-04-04 09:10 | NUR ---
RN NOTES NOTED PATIENT WITH HR OF 47, DR. ALCARAZ MADE AWARE WITH NNO. CONTINUE MONITOR LONG BP IS IN RANGE.
[2020-04-04] MEDS: POTASSIUM CHLORIDE 20 MEQ TAB.PRT.SR PO SCH ×3 (10:00→12:03)
--- NOTE | 2020-04-04 15:00 | NUR ---
RECEIVED REPORT FROM RADHA ESCOBAR FOR FLIP.
[2020-04-04] MEDS: PROPOFOL 100 ML IV PRN ×2 (15:13→20:03)
[2020-04-04] MEDS: NOREPINEPHRINE 8 MG in IV NS 0.9% 242 ML IV PRN (17:56)
[2020-04-04] MEDS: INSULIN GLARGINE, 100 UNIT/ML CARTRIDGE SQ SCH (22:28)
[2020-04-05] VITALS (90 sets, daily range): BP systolic 79–149; BP diastolic 32–61
[2020-04-05] MEDS: INSULIN REGULAR, HUMAN 100 UNIT/ML 3 ML VIAL SQ PRN ×3 (00:09→17:16)
[2020-04-05] MEDS: BLOOD SUGAR DIAGNOSTIC 1 EACH STRIP IN SCH ×4 (00:31→17:06)
[2020-04-05] MEDS: PROPOFOL 100 ML IV PRN ×5 (04:03→22:51)
[2020-04-05 04:47] LABS: ABG BASE EXCESS 7.1 mmol/L; ABG OXYGEN SATURATION 84.6 % (92.0-98.5); ABG PCO2 41.6 mmHg (35.0-45.0); ABG PH 7.491 (7.350-7.450); ABG PO2 47.8 mmHg (75.0-100.0); AaDO2 334.2 mmHg; COHb 0.3 % (0.5-1.5); MetHb 0.1 % (0.0-1.5); O2Hb 84.3 % (94.0-97.0); PEEP,BG 10 cm H2O; SITE, ABG Right Brachial; VENT MODE, BG AC 24 400 60% +10; VT, ABG 400 mL
[2020-04-05 04:52] LABS: BASOPHILS % (AUTO) 0.7 % (0.0-2.0); HEMATOCRIT 26 % (33-45); HEMOGLOBIN 8.7 g/dL (11.5-14.8); LYMPHOCYTES # (AUTO) 0.9 /CMM (0.8-4.8); LYMPHOCYTES % (AUTO) 11.8 % (20.0-44.0); MEAN CORPUSCULAR HGB CONC 33 g/dl (31.0-36.0); MEAN CORPUSCULAR VOLUME 93 fL (82-100); MONOCYTES # (AUTO) 0.2 /CMM (0.1-1.30); MONOCYTES % (AUTO) 2.2 % (2.0-12.0); NEUTROPHILS # (AUTO) 5.5 /CMM (1.8-8.9); NEUTROPHILS % (AUTO) 75.3 % (43.0-81.0); PLATELET COUNT (AUTO) 116 /CMM (150-450); RED BLOOD CELL COUNT(AUTO) 2.85 MIL/uL (4.0-5.2); WHITE BLOOD COUNT (AUTO) 7.3 K/uL (4.3-11.0)
[2020-04-05 04:59] LABS: CREATININE 0.6 mg/dL (0.6-1.3); POTASSIUM 2.9 mmol/L (3.5-5.1)
--- NOTE | 2020-04-05 05:04 | NUR ---
MORNING ABG DONE. NOTIFIED RN WITH RESULT. FIO2 INCREASED TO 80%.
[2020-04-05] MEDS: HYDROCORTISONE SOD SUCCINATE 100 MG/2 ML VIAL IV SCH ×3 (05:40→20:33)
--- NOTE | 2020-04-05 07:29 | NUR ---
ENDORSEMENT GIVEN TO AM NURSE FOR FLIP. NO CHANGES NOTED ALL THE IV LINES INTACT PATENT FLUSHES WELL, MEDICATIONS WERE GIVEN ORDERED. KEPT CLEAN DRY AND COMFORTABLE.ALL SAFETY MEASURES IN PLACE, CALL LIGHT WITHIN REACH.
--- NOTE | 2020-04-05 07:30 | NUR ---
RT PER DR ALCARAZ PEEP INCREASED TO 12. RN NOTIFIED. Addendum: 04/05/20 at 1006 by BETHANIE JACKSON RT Amended: Links added.
--- NOTE | 2020-04-05 07:31 | NUR ---
RT PATIENT REC'D ORALLY INTUBATED ON [facility] VENT IN CRITICAL CONDITION. VENT SETTINGS AND ALARMS CHECKED. ETT SECURE AND PATENT. VENT PLUGGED INTO RED OUTLET. PT SX'D. Addendum: 04/05/20 at 1549 by BETHANIE JACKSON RT Amended: Links added.
[2020-04-05] MEDS: ASPIRIN 325 MG TABLET PO SCH (08:45)
[2020-04-05] MEDS: APIXABAN 5 MG TABLET PO SCH ×2 (08:46→20:33)
[2020-04-05] MEDS: PROSOURCE / PROSTAT (PYXIS) 30 ML UDC GT SCH ×3 (08:47→17:06)
[2020-04-05] MEDS: POTASSIUM CHLORIDE 20 MEQ TAB.PRT.SR PO SCH ×5 (10:05→17:05)
[2020-04-05] MEDS: DEXTROSE 50%-WATER 50 ML DISP.SYRIN IV PRN (12:19)
[2020-04-05] MEDS: GLUCERNA 1.2 1,000 ML BOTTLE NG PRN (12:34)
--- NOTE | 2020-04-05 12:38 | NUR ---
CHECKED PATIENT'S GLUCOSE TWICE WITH GLUCOMETER. RESULTS OF "LOW <10" TWICE. REPORTED TO HOGSHEAD BUILDER. THE ORDERED D50 WAS GIVEN AND HOGSHEAD BUILDER MADE AWARE. HOGSHEAD BUILDER ORDERED LAB DRAW OF GLUCOSE AFTER 30 MINUTES. WILL MONITOR AND REPORT TO HOGSHEAD BUILDER NEEDED. WILL ALSO RECHECK GLUCOSE W GLUCOMETER IN 30 MINUTES.
--- NOTE | 2020-04-05 13:37 | NUR ---
RECEIVED CRITICAL VALUE 357 GLUCOSE FROM LAB. WILL MAKE AMMONIA BOX OPERATOR AWARE.
[2020-04-05] MEDS: NOREPINEPHRINE 8 MG in IV NS 0.9% 242 ML IV PRN (18:00)
--- NOTE | 2020-04-05 19:31 | NUR ---
PT SEDATED IN BED. VENT SETTINGS ORDERED. YVETTE 100%. NGT INTACT. LOBATO INTACT. FLEXISEAL INTACT. ALL ORDERS IMPLEMENTED. PT VS WNL. ALL HOSPITAL POLICY SAFETY PRECAUTIONS IMPLEMENTED. ENDORSED TO PM RN PLAN OF CARE. REPORTED TO MD NEEDED. TURNED Q2H.
[2020-04-05] MEDS: INSULIN GLARGINE, 100 UNIT/ML CARTRIDGE SQ SCH (22:48)
[2020-04-06] VITALS (75 sets, daily range): BP systolic 88–151; BP diastolic 43–74
[2020-04-06] MEDS: INSULIN REGULAR, HUMAN 100 UNIT/ML 3 ML VIAL SQ PRN ×5 (00:21→23:54)
[2020-04-06] MEDS: BLOOD SUGAR DIAGNOSTIC 1 EACH STRIP IN SCH ×5 (00:33→23:53)
[2020-04-06] MEDS: PROPOFOL 100 ML IV PRN ×5 (01:35→20:08)
[2020-04-06 05:09] LABS: ABG BASE EXCESS 5.1 mmol/L; ABG OXYGEN SATURATION 97.5 % (92.0-98.5); ABG PCO2 46.6 mmHg (35.0-45.0); ABG PH 7.428 (7.350-7.450); ABG PO2 102.5 mmHg (75.0-100.0); COHb 0.2 % (0.5-1.5); MetHb 0.3 % (0.0-1.5); PEEP,BG 12 cm H2O; SITE, ABG Left Radial; VENT MODE, BG AC 24 400 80% +12; VT, ABG 400 mL
[2020-04-06] MEDS: HYDROCORTISONE SOD SUCCINATE 100 MG/2 ML VIAL IV SCH ×3 (05:46→21:29)
--- NOTE | 2020-04-06 08:00 | NUR ---
RT PATIENT REC'D ORALLY INTUBATED ON [facility] VENT. PER DR ALCARAZ PEEP LOWERED TO 10 AND FIO2 TITRATED TO 60%. VENT ALARMS AND SETTINGS CHECKED. AIRWAY SECURE AND PATENT. PATIENT IN CRITICAL CONDITION. Addendum: 04/06/20 at 0932 by BETHANIE JACKSON RT Amended: Links added.
[2020-04-06] MEDS: APIXABAN 5 MG TABLET PO SCH ×2 (08:12→21:44)
[2020-04-06] MEDS: ASPIRIN 325 MG TABLET PO SCH (08:12)
[2020-04-06] MEDS: PROSOURCE / PROSTAT (PYXIS) 30 ML UDC GT SCH ×3 (08:13→17:51)
[2020-04-06] MEDS: NOREPINEPHRINE 8 MG in IV NS 0.9% 242 ML IV PRN (10:32)
--- NOTE | 2020-04-06 11:41 | NUR ---
RN NOTES PATIENT CONTINUES ON VENT SETTING TOLERATING ORDERED. NO S/S OF ACUTE DISTRESS NOTED. IV'S INTACT PATENT, FLUSHES WELL. VITAL SIGNS WNL. KEPT CLEAN DRY AND COMFORTABLE. F/C, FLEXISEAL INTACT. ALL SAFETY MEASURES IN PLACE. CALL LIGHT WITHIN REACH. ENDORSED PATIENT TO AM RN FOR FLIP.
--- NOTE | 2020-04-06 11:45 | NUR ---
RECEIVED REPORT FROM LUPE ESCOBAR FOR FLIP. NAD NOTED. REMAINS ON VENT AT PREVIOUS SETTINGS, TOLERATING WELL. TUBE FEEDS TOLERATING WELL. LEVO AT 0.03 AND PROPOFOL AT 40MCG/KG/MIN WITH GOOD BP AND ADEQUATE SEDATION. LOBATO DRAINING TO GRAVITY.
[2020-04-06] MEDS: ACETAMINOPHEN 325 MG TABLET PO PRN (13:19)
[2020-04-06] MEDS: FAMOTIDINE/PF INJ 20 MG/2 ML VIAL IV SCH ×2 (15:24→21:29)
--- NOTE | 2020-04-06 16:00 | NUR ---
NAD NOTED. TURNED AND REPOSITIONED Q2H. BEDBATH GIVEN.
--- NOTE | 2020-04-06 19:00 | NUR ---
REPORT GIVEN TO DAMIAN ESCOBAR FOR FLIP. NO CHANGES DURING SHIFT.
--- NOTE | 2020-04-06 19:10 | NUR ---
SIZER HAND OPENING NOTES: Rec'd pt in bed, intubated 7/22cm at the lip and sedated. Tolerating vent settings well. No resp distress noted. SR on tele monitor. Left NGT in place, w/ Glucerna infusing at 15ml/hr. AVINASH midline in place w/ Diprivan infusing at 40mcg and Levo at 0.03ml/hr. Will titrate per protocool. Arias catheter in place patent and draining urine via gravity. Rectal tube in place. Safety measures in place Will continue to monitor.
[2020-04-06] MEDS: INSULIN GLARGINE, 100 UNIT/ML CARTRIDGE SQ SCH (22:00)
[2020-04-06] MEDS: DEXTROSE 50%-WATER 50 ML DISP.SYRIN IV PRN (22:38)
[2020-04-07] VITALS (43 sets, daily range): BP systolic 72–140; BP diastolic 30–95
[2020-04-07] MEDS: PROPOFOL 100 ML IV PRN ×5 (01:34→21:30)
[2020-04-07 04:29] LABS: BASOPHILS % (AUTO) 0.5 % (0.0-2.0); EOSINOPHILS % (AUTO) 8.8 % (0.0-6.0); HEMATOCRIT 24 % (33-45); HEMOGLOBIN 7.9 g/dL (11.5-14.8); LYMPHOCYTES # (AUTO) 0.8 /CMM (0.8-4.8); LYMPHOCYTES % (AUTO) 14.9 % (20.0-44.0); MEAN CORPUSCULAR HGB CONC 33 g/dl (31.0-36.0); MEAN CORPUSCULAR VOLUME 92 fL (82-100); MONOCYTES # (AUTO) 0.1 /CMM (0.1-1.30); MONOCYTES % (AUTO) 2.1 % (2.0-12.0); NEUTROPHILS # (AUTO) 3.8 /CMM (1.8-8.9); NEUTROPHILS % (AUTO) 73.7 % (43.0-81.0); PLATELET COUNT (AUTO) 145 /CMM (150-450); RED BLOOD CELL COUNT(AUTO) 2.61 MIL/uL (4.0-5.2); WHITE BLOOD COUNT (AUTO) 5.2 K/uL (4.3-11.0)
[2020-04-07 04:38] LABS: CALCIUM, SERUM 7.7 mg/dL (8.5-10.1); CARBON DIOXIDE 32 mmol/L (21-32); CHLORIDE 109 mmol/L (98-107); CREATININE 0.8 mg/dL (0.6-1.3); GLUCOSE 148 mg/dL (74-106); POTASSIUM 3.1 mmol/L (3.5-5.1); SODIUM SERUM 145 mmol/L (136-145); UREA NITROGEN, BLOOD 21 mg/dL (7-18)
[2020-04-07 04:42] LABS: TRIGLYCERIDES 195 mg/dL (30-150)
[2020-04-07] MEDS: HYDROCORTISONE SOD SUCCINATE 100 MG/2 ML VIAL IV SCH ×3 (05:37→20:40)
[2020-04-07] MEDS: BLOOD SUGAR DIAGNOSTIC 1 EACH STRIP IN SCH ×3 (05:51→18:17)
[2020-04-07] MEDS: INSULIN REGULAR, HUMAN 100 UNIT/ML 3 ML VIAL SQ PRN (05:52)
[2020-04-07 08:01] LABS: ABG BASE EXCESS 4.4 mmol/L; ABG OXYGEN SATURATION 92.1 % (92.0-98.5); ABG PCO2 49.9 mmHg (35.0-45.0); ABG PH 7.396 (7.350-7.450); ABG PO2 64.6 mmHg (75.0-100.0); AaDO2 308.3 mmHg; COHb 0.3 % (0.5-1.5); MetHb 0.3 % (0.0-1.5); O2Hb 91.5 % (94.0-97.0); SITE, ABG Right Radial
[2020-04-07] MEDS ORDERED: POTASSIUM CHLORIDE 20 MEQ POWDER PACKET NG SCH (09:00)
[2020-04-07] MEDS: FAMOTIDINE/PF INJ 20 MG/2 ML VIAL IV SCH ×2 (09:38→20:40)
[2020-04-07] MEDS: APIXABAN 5 MG TABLET PO SCH ×2 (09:39→20:41)
[2020-04-07] MEDS: ASPIRIN 325 MG TABLET PO SCH (09:41)
[2020-04-07] MEDS: PROSOURCE / PROSTAT (PYXIS) 30 ML UDC GT SCH ×3 (09:42→17:30)
--- NOTE | 2020-04-07 15:56 | NUR ---
RT PATIENT REMAINS IN CRITICAL CONDITION. INTUBATED ON [facility] VENT. FIO2 INCREASED TO 80% VENT ALARMS AUDIBLE, ETT SECURE AND PATENT IN PROPER POSITION. AMBU BAG AT HOB. Addendum: 04/07/20 at 1558 by BETHANIE JACKSON RT Amended: Links added.
[2020-04-07] MEDS: ACETAMINOPHEN 325 MG TABLET PO PRN (20:39)
[2020-04-08] VITALS (53 sets, daily range): BP systolic 80–149; BP diastolic 33–73
[2020-04-08] MEDS: BLOOD SUGAR DIAGNOSTIC 1 EACH STRIP IN SCH ×4 (00:26→18:29)
[2020-04-08] MEDS: INSULIN GLARGINE, 100 UNIT/ML CARTRIDGE SQ SCH ×2 (00:29→21:53)
[2020-04-08] MEDS: PROPOFOL 100 ML IV PRN ×6 (02:20→22:10)
[2020-04-08] MEDS: HYDROCORTISONE SOD SUCCINATE 100 MG/2 ML VIAL IV SCH ×3 (05:26→21:31)
[2020-04-08] MEDS: NOREPINEPHRINE 8 MG in IV NS 0.9% 242 ML IV PRN ×2 (05:27→10:12)
[2020-04-08] MEDS: INSULIN REGULAR, HUMAN 100 UNIT/ML 3 ML VIAL SQ PRN ×3 (06:44→18:29)
--- NOTE | 2020-04-08 07:30 | NUR ---
DANCE HISTORIAN PATIENT IN BED, NO S/S OF DISTRESS, INTUBATED, O2 SAT >95%, IN BED, TELE MONITOR SINUS RHYTHM, BED IN LOWEST LOCKED POSITION, SAFETY MEASURES IN PLACE, LOBATO DRAINING YELLOW URINE WITH SEDIMENT, ALL TUBES IN PLACE, IVs CLEAN DRY INTACT FLUSHING WELL.
--- NOTE | 2020-04-08 07:48 | NUR ---
WOUND CARE CONSULT: REVIEWED CHART, NURSING DOCUMENTATION AND PHOTOS WHICH INDICATE RASH/REDNESS TO PERIANAL AND PERINEAL AREAS WITH GLUTEAL CREASE INCONTINENCE ASSOCIATED SKIN DAMAGE. RECTAL TUBE NOTED IN PHOTO. RECOMMENDATIONS MADE FOR SKIN PROTECTION. DISCUSSED WITH NURSING STAFF. MD IN AGREEMENT WITH PLAN OF CARE. [facility]
[2020-04-08] MEDS: ASPIRIN 325 MG TABLET PO SCH (09:20)
[2020-04-08] MEDS: FAMOTIDINE/PF INJ 20 MG/2 ML VIAL IV SCH ×2 (09:20→21:31)
[2020-04-08] MEDS: CLOTRIMAZOLE 1% 15 GM TUBE TP SCH ×2 (09:26→17:56)
[2020-04-08] MEDS: PROSOURCE / PROSTAT (PYXIS) 30 ML UDC GT SCH ×3 (09:27→17:56)
[2020-04-08] MEDS: APIXABAN 5 MG TABLET PO SCH ×2 (09:30→21:31)
--- NOTE | 2020-04-08 09:30 | NUR ---
CROP FARMERS NO SEDATION VACATION PER YESSI DEL CID ORDER BECAUSE PEEP IS 10. CONTINUING PROPOFOL AT 45MCG/KG/MIN.
--- NOTE | 2020-04-08 09:30 | NUR ---
ROCKET ENGINE TESTER DECREASED LEVOPHED PER MD ORDER TO 0.06, BP 105/ 49. TOLERATING WELL.
--- NOTE | 2020-04-08 13:59 | NUR ---
CAKE PUNCHER TUBING CHANGED FOR PROPOFOL, PATIENT TOLERATED WELL, CONTINUING AQT 45MCG/KG/HR, NO S/S OF DISTRESS, SEDATION SCORE 3.
[2020-04-08] MEDS: MICAFUNGIN SODIUM 100 MG in IV NS 0.9% 100 ML IV SCH (14:01)
[2020-04-08] MEDS: MEROPENEM 500 MG in IV NS 0.9% 50 ML IV SCH ×2 (14:01→21:29)
[2020-04-08] MEDS: VANCOMYCIN 1 GM in IV D5W 250 ML IV SCH (14:41)
--- NOTE | 2020-04-08 19:30 | NUR ---
ELEVATOR RUNNER PATIENT IN BED, NO S/S OF DISTRESS, INTUBATED, O2 SAT >95%, IN BED, TELE MONITOR SINUS RHYTHM, BED IN LOWEST LOCKED POSITION, SAFETY MEASURES IN PLACE, LBOATO DRAINING YELLOW URINE WITH SEDIMENT, ALL TUBES IN PLACE, IVs CLEAN DRY INTACT FLUSHING WELL.
--- NOTE | 2020-04-08 20:09 | NUR ---
RN NOTES RECEIVED PT IN BED. INTUBATED AND SEDATED. TOLERATING VENT SETTINGS WELL. ON TELE MONITOR, SR/SB. LEFT NGT IN PLACE WITH GLUCERNA @ 15ML/HR. AVINASH MIDLINE IN PLACE WITH DIPRIVAN INFUSING @ 45 MCG AND LEVO @ 0.06ML/HR. LOBATO CATH IN PLACE AND DRAINING URINE VIA GRAVITY. RECTAL TUBE IN PLACE. WILL CONTINUE TO MONITOR.
[2020-04-09] VITALS (86 sets, daily range): BP systolic 86–164; BP diastolic 38–70
[2020-04-09] MEDS: BLOOD SUGAR DIAGNOSTIC 1 EACH STRIP IN SCH ×5 (00:38→23:52)
[2020-04-09] MEDS: INSULIN REGULAR, HUMAN 100 UNIT/ML 3 ML VIAL SQ PRN ×4 (00:40→16:31)
[2020-04-09] MEDS: PROPOFOL 100 ML IV PRN ×4 (02:45→22:20)
[2020-04-09] MEDS: HYDROCORTISONE SOD SUCCINATE 100 MG/2 ML VIAL IV SCH ×3 (04:25→20:31)
[2020-04-09] MEDS: MEROPENEM 500 MG in IV NS 0.9% 50 ML IV SCH ×3 (04:25→21:03)
[2020-04-09 05:25] LABS: CALCIUM, SERUM 7.8 mg/dL (8.5-10.1); CREATININE 0.8 mg/dL (0.6-1.3)
[2020-04-09 05:50] LABS: POTASSIUM 2.6 mmol/L (3.5-5.1)
[2020-04-09] MEDS ORDERED: POTASSIUM CL. PREMIX PERIPHER. 50 ML IV SCH (06:30)
--- NOTE | 2020-04-09 08:00 | NUR ---
RN NOTES RECEIVED PATIENT IN BED, EET TOLERATING WELL, NO ACUTE RESPIRATORY DISTRESS O2 SAT >93%, TELE MONITOR SINUS RHYTHM, INFUSING DIPRIVAN 45MCG, LEVOPHED 0.01 MCG, INTACT ON LEFT MID LINE. NG TUNE INTACT, INFUSING GLUCERNA 15CC/HE, RECHECKED RESIDUAL 80ML, AND PLACEMENT. KEEP HOB ELEVATED FOR ASPIRATION PRECAUTION. BED IN LOWEST LOCKED POSITION, SAFETY MEASURES IN PLACE, LOBATO DRAINING YELLOW URINE WITH SEDIMENT, ALL TUBES IN PLACE, RECTAL TUBE INTACT, EDEMA BILATERAL HANDS, AND BLE, CALL LIGHT WITHIN TO REACH. ASSIST TURN AND REPOSTION Q 2 HR. WILL MONITORING.
[2020-04-09] MEDS: FAMOTIDINE/PF INJ 20 MG/2 ML VIAL IV SCH ×2 (10:49→20:31)
[2020-04-09] MEDS: ASPIRIN 325 MG TABLET PO SCH (10:49)
[2020-04-09] MEDS: APIXABAN 5 MG TABLET PO SCH ×2 (10:49→20:45)
[2020-04-09] MEDS: POTASSIUM CHLORIDE 20 MEQ POWDER PACKET NG SCH ×2 (10:51→11:04)
[2020-04-09] MEDS: CLOTRIMAZOLE 1% 15 GM TUBE TP SCH ×2 (10:52→16:27)
--- NOTE | 2020-04-09 10:55 | NUR ---
RN NOTES GET CALL FROM LAB PATIENT GRAM POSITIVE FOR BLOOD CULTURE.
[2020-04-09] MEDS: PROSOURCE / PROSTAT (PYXIS) 30 ML UDC GT SCH ×3 (11:01→16:27)
[2020-04-09] MEDS: MICAFUNGIN SODIUM 100 MG in IV NS 0.9% 100 ML IV SCH (13:40)
[2020-04-09] MEDS: GLUCERNA 1.2 1,000 ML BOTTLE NG PRN (13:58)
[2020-04-09] MEDS: VANCOMYCIN 1 GM in IV D5W 250 ML IV SCH (14:26)
--- NOTE | 2020-04-09 18:30 | NUR ---
RN NOTES PM CARE DONE, SUCTION, DUE MEDICATION ADMINISTERED. NO S/S OF RESPIRATORY DISTRESS, TOLERATING EET SETTING WELL. TELE MONITOR SINUS RHYTHM, SAFETY MEASURES IN PLACE, BS-278 MG/DL COVERAGE GIVEN, DIPRIVAN, AND LEVOPHED TITRATED PER PROTOCOL. LOBATO DRAINING YELLOW URINE WITH SEDIMENT, ALL TUBES IN PLACE, IVs CLEAN DRY INTACT FLUSHING WELL. ENDORSED ONCOMING NURSE FOLLOW PLAN OF CARE.
[2020-04-09] MEDS: NOREPINEPHRINE 8 MG in IV NS 0.9% 242 ML IV PRN (19:25)
[2020-04-09 20:18] LABS: CALCIUM, SERUM 7.8 mg/dL (8.5-10.1); CREATININE 0.8 mg/dL (0.6-1.3); POTASSIUM 4.6 mmol/L (3.5-5.1)
[2020-04-09] MEDS: INSULIN GLARGINE, 100 UNIT/ML CARTRIDGE SQ SCH (22:36)
[2020-04-10] VITALS (90 sets, daily range): BP systolic 87–131; BP diastolic 30–65
[2020-04-10] MEDS: INSULIN REGULAR, HUMAN 100 UNIT/ML 3 ML VIAL SQ PRN ×5 (00:17→22:16)
[2020-04-10] MEDS: PROPOFOL 100 ML IV PRN ×5 (01:20→23:54)
[2020-04-10] MEDS: MEROPENEM 500 MG in IV NS 0.9% 50 ML IV SCH ×3 (05:00→20:37)
[2020-04-10] MEDS: HYDROCORTISONE SOD SUCCINATE 100 MG/2 ML VIAL IV SCH ×3 (05:06→20:38)
[2020-04-10 05:27] LABS: BASOPHILS # (AUTO) 0.1 /CMM (0.0-0.2); BASOPHILS % (AUTO) 0.7 % (0.0-2.0); EOSINOPHILS % (AUTO) 1.6 % (0.0-6.0); HEMATOCRIT 25 % (33-45); HEMOGLOBIN 8.2 g/dL (11.5-14.8); LYMPHOCYTES # (AUTO) 1.1 /CMM (0.8-4.8); LYMPHOCYTES % (AUTO) 10.9 % (20.0-44.0); MEAN CORPUSCULAR HGB CONC 33 g/dl (31.0-36.0); MEAN CORPUSCULAR VOLUME 93 fL (82-100); MONOCYTES # (AUTO) 0.3 /CMM (0.1-1.30); MONOCYTES % (AUTO) 3.4 % (2.0-12.0); NEUTROPHILS # (AUTO) 8.1 /CMM (1.8-8.9); NEUTROPHILS % (AUTO) 83.4 % (43.0-81.0); PLATELET COUNT (AUTO) 268 /CMM (150-450); RED BLOOD CELL COUNT(AUTO) 2.68 MIL/uL (4.0-5.2); WHITE BLOOD COUNT (AUTO) 9.7 K/uL (4.3-11.0)
[2020-04-10 05:49] LABS: CALCIUM, SERUM 7.8 mg/dL (8.5-10.1); CREATININE 0.8 mg/dL (0.6-1.3); POTASSIUM 3.6 mmol/L (3.5-5.1)
[2020-04-10] MEDS: BLOOD SUGAR DIAGNOSTIC 1 EACH STRIP IN SCH ×4 (06:07→22:21)
--- NOTE | 2020-04-10 07:20 | NUR ---
RN NOTES NO CHANGES NOTED ALL THE IV LINES INTACT PATENT FLUSHES WELL, MEDICATIONS WERE GIVEN ORDERED. KEPT CLEAN DRY AND COMFORTABLE.ALL SAFETY MEASURES IN PLACE, CALL LIGHT WITHIN REACH.ENDORSEMENT GIVEN TO AM NURSE FOR FLIP.
--- NOTE | 2020-04-10 07:30 | NUR ---
RN OPENING NOTE PT IN BED. NO SIGNS OF RESP DISTRESS OR SOB. PT ON VENT SETTING ORDERED. LEVOPHED STOPPED BY DEBBIE RN, WILL ASSESS BP FREQUENTLY. ALL TUBES CHECKED AND IN PLACE. ALL SAFETY PRECAUTIONS IN PLACE. WILL CONTINUE TO MONITOR
[2020-04-10 08:05] LABS: ABG BASE EXCESS 5.2 mmol/L; ABG OXYGEN SATURATION 90.4 % (92.0-98.5); ABG PH 7.498 (7.350-7.450); ABG PO2 57.2 mmHg (75.0-100.0); AaDO2 364.9 mmHg; COHb 0.9 % (0.5-1.5); MetHb 0.1 % (0.0-1.5); O2Hb 89.5 % (94.0-97.0); PEEP,BG 10 cm H2O; SITE, ABG Right Radial; VT, ABG 400 mL
[2020-04-10] MEDS: CLOTRIMAZOLE 1% 15 GM TUBE TP SCH ×2 (09:00→17:46)
[2020-04-10] MEDS: FAMOTIDINE/PF INJ 20 MG/2 ML VIAL IV SCH (09:18)
[2020-04-10] MEDS: PROSOURCE / PROSTAT (PYXIS) 30 ML UDC GT SCH ×3 (09:18→17:43)
[2020-04-10] MEDS: ASPIRIN 325 MG TABLET PO SCH (09:18)
[2020-04-10] MEDS: APIXABAN 5 MG TABLET PO SCH ×2 (10:12→20:42)
--- NOTE | 2020-04-10 13:00 | NUR ---
RN NOTE PT IN BED HIGH ALEGRIA'S RESTING, NO SIGNS OF RESP DISTRESS OR SOB.
[2020-04-10] MEDS: MICAFUNGIN SODIUM 100 MG in IV NS 0.9% 100 ML IV SCH (13:51)
[2020-04-10] MEDS: VANCOMYCIN 1 GM in IV D5W 250 ML IV SCH (15:11)
--- NOTE | 2020-04-10 19:00 | NUR ---
RN NOTE NO CHANGES TO PT STATUS DURING SHIFT. ALL SAFETY PRECAUTIONS IN PLACE. PT REPORT GIVEN TO ONCOMING RN FOR FLIP.
[2020-04-10] MEDS: FAMOTIDINE (20 MG) 20 MG TABLET NG SCH (20:40)
[2020-04-10] MEDS: INSULIN GLARGINE, 100 UNIT/ML CARTRIDGE SQ SCH (22:15)
[2020-04-11] VITALS (62 sets, daily range): BP systolic 67–159; BP diastolic 27–94
[2020-04-11] MEDS: PROPOFOL 100 ML IV PRN ×5 (05:28→23:44)
[2020-04-11 05:40] LABS: CREATININE 0.6 mg/dL (0.6-1.3)
[2020-04-11] MEDS: HYDROCORTISONE SOD SUCCINATE 100 MG/2 ML VIAL IV SCH ×3 (05:45→17:04)
[2020-04-11] MEDS: MEROPENEM 500 MG in IV NS 0.9% 50 ML IV SCH ×3 (05:46→20:47)
[2020-04-11 05:56] LABS: POTASSIUM 2.4 mmol/L (3.5-5.1)
[2020-04-11] MEDS: BLOOD SUGAR DIAGNOSTIC 1 EACH STRIP IN SCH ×3 (07:31→17:04)
[2020-04-11] MEDS: INSULIN REGULAR, HUMAN 100 UNIT/ML 3 ML VIAL SQ PRN ×3 (07:31→18:46)
[2020-04-11] MEDS: POTASSIUM CHLORIDE 20 MEQ POWDER PACKET NG SCH ×3 (08:25→10:00)
[2020-04-11] MEDS: APIXABAN 5 MG TABLET PO SCH ×2 (08:26→20:49)
[2020-04-11] MEDS: FAMOTIDINE (20 MG) 20 MG TABLET NG SCH ×2 (08:26→20:48)
[2020-04-11] MEDS: CLOTRIMAZOLE 1% 15 GM TUBE TP SCH ×2 (08:26→16:59)
[2020-04-11] MEDS: ASPIRIN 325 MG TABLET PO SCH (08:26)
[2020-04-11] MEDS: PROSOURCE / PROSTAT (PYXIS) 30 ML UDC GT SCH ×3 (08:26→16:59)
[2020-04-11] MEDS ORDERED: POTASSIUM CHLORIDE 20 MEQ POWDER PACKET GT ONE (11:30)
[2020-04-11] MEDS: MICAFUNGIN SODIUM 100 MG in IV NS 0.9% 100 ML IV SCH (15:01)
[2020-04-11] MEDS: VANCOMYCIN 1 GM in IV D5W 250 ML IV SCH (17:03)
--- NOTE | 2020-04-11 19:29 | NUR ---
RN NOTES PATIENT IN BED. INTUBATED AND SEDATED. TOLERATING VENT SETTINGS. TELE MONITOR ON, SB. LEFT NGT IN PLACE, GLUCERNA @ 15ML/HR. AVINASH MIDLINE IN PLACE WITH DIPRIVAN INFUSING @ [address] MCG. [address] CATH IN PL[address] DRAINING URINE VIA GRAVITY. RECTAL TUBE IN PLACE. WILL CONTINUE TO MONITOR.
[2020-04-11] MEDS: INSULIN GLARGINE, 100 UNIT/ML CARTRIDGE SQ SCH (21:09)
[2020-04-12] VITALS (67 sets, daily range): BP systolic 63–142; BP diastolic 30–92
[2020-04-12] MEDS: BLOOD SUGAR DIAGNOSTIC 1 EACH STRIP IN SCH ×5 (00:25→23:50)
[2020-04-12] MEDS: INSULIN REGULAR, HUMAN 100 UNIT/ML 3 ML VIAL SQ PRN ×3 (00:27→22:51)
[2020-04-12] MEDS: PROPOFOL 100 ML IV PRN ×4 (03:11→21:26)
[2020-04-12] MEDS: MEROPENEM 500 MG in IV NS 0.9% 50 ML IV SCH ×2 (04:27→13:24)
[2020-04-12 04:59] LABS: BASOPHILS # (AUTO) 0.1 /CMM (0.0-0.2); BASOPHILS % (AUTO) 0.5 % (0.0-2.0); EOSINOPHILS % (AUTO) 7.2 % (0.0-6.0); HEMATOCRIT 24 % (33-45); HEMOGLOBIN 7.8 g/dL (11.5-14.8); LYMPHOCYTES # (AUTO) 1.4 /CMM (0.8-4.8); LYMPHOCYTES % (AUTO) 15.4 % (20.0-44.0); MEAN CORPUSCULAR HGB CONC 33 g/dl (31.0-36.0); MEAN CORPUSCULAR VOLUME 93 fL (82-100); MONOCYTES # (AUTO) 0.3 /CMM (0.1-1.30); MONOCYTES % (AUTO) 3.2 % (2.0-12.0); NEUTROPHILS # (AUTO) 6.9 /CMM (1.8-8.9); NEUTROPHILS % (AUTO) 73.7 % (43.0-81.0); PLATELET COUNT (AUTO) 330 /CMM (150-450); RED BLOOD CELL COUNT(AUTO) 2.54 MIL/uL (4.0-5.2); WHITE BLOOD COUNT (AUTO) 9.3 K/uL (4.3-11.0)
[2020-04-12 05:11] LABS: CALCIUM, SERUM 7.9 mg/dL (8.5-10.1); CREATININE 0.7 mg/dL (0.6-1.3)
--- NOTE | 2020-04-12 07:51 | NUR ---
RN NOTE PATIENT RESTING IN BED. INTUBATED AND SEDATED. TOLERATING VENT SETTINGS. TELE MONITOR ON, SB. LEFT NGT IN PLACE, GLUCERNA @ 15ML/HR. AVINASH MIDLINE IN PLACE WITH DIPRIVAN INFUSING @ 40 MCG[address] DRAINING URINE VIA GRAVITY, [address] OUT[address] RE[address]AL TUBE IN [address]. ENDORSED TO ONCOMING SHIFT.
--- NOTE | 2020-04-12 08:36 | NUR ---
SILK SCREENER NOTES LEVOPHED RESTARTED AT 0.01MCG/MIN NEEDED. MAP RESULTS <65. WILL CONTINUE TO MONITOR.
[2020-04-12] MEDS: HYDROCORTISONE SOD SUCCINATE 100 MG/2 ML VIAL IV SCH ×2 (09:04→16:41)
[2020-04-12] MEDS: FAMOTIDINE (20 MG) 20 MG TABLET NG SCH ×2 (09:05→21:26)
[2020-04-12] MEDS: ASPIRIN 325 MG TABLET PO SCH (09:05)
[2020-04-12] MEDS: APIXABAN 5 MG TABLET PO SCH ×2 (09:07→21:27)
[2020-04-12] MEDS: CLOTRIMAZOLE 1% 15 GM TUBE TP SCH ×2 (09:11→16:36)
[2020-04-12] MEDS: PROSOURCE / PROSTAT (PYXIS) 30 ML UDC GT SCH ×3 (09:12→16:36)
[2020-04-12] MEDS: POTASSIUM CHLORIDE 20 MEQ POWDER PACKET NG SCH ×2 (09:12→10:14)
[2020-04-12] MEDS: MICAFUNGIN SODIUM 100 MG in IV NS 0.9% 100 ML IV SCH (13:24)
[2020-04-12] MEDS: VANCOMYCIN 1 GM in IV D5W 250 ML IV SCH (14:10)
--- NOTE | 2020-04-12 19:30 | NUR ---
SUSTAINABLE DESIGN COORDINATOR RCD PT W/DX COVID PNA. PT IS SB/NSR ON MONITOR. SEDATED ON PROPOFOL @ 45 MCG/KG/MIN. LOBATO CATH IN PLACE W/DARK YELLOW SEDIMENT URINE. PERNIEAL EXCORIATION NOTED. FLEXI SEAL IN PLACE W/DARK BROWN LIQUID STOOL. LEFT NARE NG TUBE W/GLUCERNA @ 15 ML/HR; NO RESIDUAL AT THIS TIME. AVINASH MIDLINE IN PLACE WITHOUT BLOOD RETURN.
[2020-04-12] MEDS: CEFEPIME 2 GM in IV D5W 100 ML IV SCH (21:25)
--- NOTE | 2020-04-12 21:30 | NUR ---
REGISTRATION REPRESENTATIVE ORDER PER ID TO REMOVE MIDLINE AND SEND TIP FOR CULTURE; PICC LINE NURSE NOT AVAILABLE AT THIS TIME TIME TO REPLACE LINE. NEW MIDLINE TO BE INSERTED AND PICC LINE MAY BE INSERTED AFTER 24 HRS OF MIDLINE PLACEMENT IF NEEDED.
[2020-04-12] MEDS: INSULIN GLARGINE, 100 UNIT/ML CARTRIDGE SQ SCH (22:50)
[2020-04-13] VITALS (31 sets, daily range): BP systolic 79–139; BP diastolic 20–84
[2020-04-13] MEDS: PROPOFOL 100 ML IV PRN ×5 (00:58→14:59)
[2020-04-13 04:49] LABS: CALCIUM, SERUM 7.8 mg/dL (8.5-10.1); CARBON DIOXIDE 33 mmol/L (21-32); CHLORIDE 103 mmol/L (98-107); CREATININE 0.5 mg/dL (0.6-1.3); GLUCOSE 127 mg/dL (74-106); POTASSIUM 3.2 mmol/L (3.5-5.1); SODIUM SERUM 142 mmol/L (136-145); UREA NITROGEN, BLOOD 14 mg/dL (7-18)
[2020-04-13 04:57] LABS: BASOPHILS % (AUTO) 0.3 % (0.0-2.0); EOSINOPHILS % (AUTO) 8.9 % (0.0-6.0); HEMATOCRIT 25 % (33-45); HEMOGLOBIN 8.3 g/dL (11.5-14.8); LYMPHOCYTES # (AUTO) 0.9 /CMM (0.8-4.8); LYMPHOCYTES % (AUTO) 10.7 % (20.0-44.0); MEAN CORPUSCULAR HGB CONC 34 g/dl (31.0-36.0); MEAN CORPUSCULAR VOLUME 92 fL (82-100); MONOCYTES # (AUTO) 0.1 /CMM (0.1-1.30); MONOCYTES % (AUTO) 1.6 % (2.0-12.0); NEUTROPHILS # (AUTO) 6.9 /CMM (1.8-8.9); NEUTROPHILS % (AUTO) 78.5 % (43.0-81.0); PLATELET COUNT (AUTO) 408 /CMM (150-450); WHITE BLOOD COUNT (AUTO) 8.8 K/uL (4.3-11.0)
[2020-04-13] MEDS: BLOOD SUGAR DIAGNOSTIC 1 EACH STRIP IN SCH ×4 (05:56→23:59)
--- NOTE | 2020-04-13 07:05 | NUR ---
RN NOTES RECEIVED PATIENT IN BED, INTUBATED AND SEDATED ON PROPOFOL @45 MCG/KG/MIN. ON A VENT, AC 24, TV 400, FIO2 95 AND PEEP OF 10 SATING @88%. ON TELE MONITOR SR, HR OF 87. NO SIGNS OF DISTRESS NOTED AT THIS TIME, NOTED WITH BILATERAL SOFT WRIST RESTRAINT, CIRCULATION CHECKED. SAFETY MEASURES IN PLACE. WILL CONTINUE TO MONITOR.
[2020-04-13] MEDS: CEFEPIME 2 GM in IV D5W 100 ML IV SCH ×2 (08:13→21:00)
[2020-04-13] MEDS: FAMOTIDINE (20 MG) 20 MG TABLET NG SCH ×2 (08:14→20:56)
[2020-04-13] MEDS: PROSOURCE / PROSTAT (PYXIS) 30 ML UDC GT SCH ×3 (08:14→17:02)
[2020-04-13] MEDS: HYDROCORTISONE SOD SUCCINATE 100 MG/2 ML VIAL IV SCH (08:14)
[2020-04-13] MEDS: ASPIRIN 325 MG TABLET PO SCH (08:14)
[2020-04-13] MEDS: FLUCONAZOLE (100 MG) 100 MG TABLET PO SCH (08:14)
[2020-04-13] MEDS: APIXABAN 5 MG TABLET PO SCH ×2 (08:17→20:58)
[2020-04-13] MEDS: CLOTRIMAZOLE 1% 15 GM TUBE TP SCH ×2 (08:18→17:02)
[2020-04-13 08:20] LABS: ABG BASE EXCESS 6.6 mmol/L; ABG OXYGEN SATURATION 79.5 % (92.0-98.5); ABG PCO2 47.9 mmHg (35.0-45.0); ABG PH 7.437 (7.350-7.450); ABG PO2 44.2 mmHg (75.0-100.0); AaDO2 548.4 mmHg; COHb 0.9 % (0.5-1.5); MetHb 0.1 % (0.0-1.5); O2Hb 78.7 % (94.0-97.0); PEEP,BG 10 cm H2O; SITE, ABG Right Brachial; VENT MODE, BG AC 24 400 90% +10; VT, ABG 400 mL
[2020-04-13] MEDS ORDERED: POTASSIUM CHLORIDE 20 MEQ POWDER PACKET GT SCH ×2 (08:30→10:00)
--- NOTE | 2020-04-13 08:30 | NUR ---
fio2 and peep increased per dr carlos verbal order Addendum: 04/13/20 at 0850 by YVONNE MACEDO RT Amended: Links added.
[2020-04-13] MEDS ORDERED: FENTANYL CITRATE IV 1,250 MCG in IV NS 0.9% 225 ML IV PRN (15:00)
[2020-04-13] MEDS: GLUCERNA 1.2 1,000 ML BOTTLE NG PRN (16:03)
[2020-04-13] MEDS: FENTANYL CITRAT IV 2,500 MCG in IV NS 0.9% 200 ML IV PRN (16:36)
[2020-04-13] MEDS: MIDAZOLAM HCL 100 MG in IV NS 0.9% 80 ML IV PRN (16:36)
[2020-04-13] MEDS: INSULIN REGULAR, HUMAN 100 UNIT/ML 3 ML VIAL SQ PRN (17:59)
--- NOTE | 2020-04-13 20:00 | NUR ---
Received patient nonverbal orally intubated to mechanical vent on full vent support. Vent settings well tolerated.DX:Covid+ Pneumonia,DKA.Sedated on Fentanyl gtt at 2 mcg,Versed gtt at 3mg/hr both infusing to AVINASH MIDLINE site intact.Maintained HOB elevated with L NGT feeding in progress.Placement/residual checked.FC to gravity drainage.Flexi seal in place with liquid/loose stools.Leaking and perineal care done.Turned and repositioned offloading pressure points.No acute distress noted.
[2020-04-13] MEDS: INSULIN GLARGINE, 100 UNIT/ML CARTRIDGE SQ SCH (21:27)
--- NOTE | 2020-04-13 22:00 | NUR ---
FSBS 98 Lantus scheduled dose not administered.NGT feeding infusing.HOB elevated. Continue to monitor.
[2020-04-13] MEDS: DOPamine 400 MG in IV D5W 250 ML IV PRN (22:19)
--- NOTE | 2020-04-13 22:20 | NUR ---
Patient with unstable BP Dopamine gtt started at 5 mcg per protocol and will titrate accordingly to keep SBP>90
--- NOTE | 2020-04-13 23:30 | NUR ---
2245 Noted patient started desating.Secretions suctioned orally and via inline ETT.Obatined small amount naylor colored secretion.RT ,Gen notified and did the same suction patient secretion but SPO2 goes down more to 60's,50's and 40's.Stat ABG''s and CXR done.ABG's resulted pH=7.283,pCO2 61.1, pO2 37.3,HCO3 =28.3 called to John PEARCE and he came to assess patient.Patient vent settings AC 24, TV 400,FIO2 100% PEEP 14.No changes made to current vent settings.Per John patient had to ARDS. Monitored closely.
[2020-04-13 23:32] LABS: ABG BASE EXCESS 0.9 mmol/L; ABG OXYGEN SATURATION 62.8 % (92.0-98.5); ABG PCO2 61.1 mmHg (35.0-45.0); ABG PH 7.283 (7.350-7.450); ABG PO2 37.3 mmHg (75.0-100.0); AaDO2 614.6 mmHg; COHb 0.6 % (0.5-1.5); MetHb 0.2 % (0.0-1.5); O2Hb 62.3 % (94.0-97.0); PEEP,BG 14 cm H2O; SITE, ABG Right Radial
--- NOTE | 2020-04-13 23:40 | NUR ---
Stephon PEARCE talked to patient ronaldoalissonNIYA regarding patient status and code status. Per patient ronaldoalisson she will talk to other family member about this.Will follow up.
--- NOTE | 2020-04-13 23:44 | NUR ---
STAT ABG DONE DUE TO LOW O2 SAT. NOTIFIED RN AND ELOCUTION TEACHER WITH CRITICAL ABG RESULT. VENT SETTINGS AC 24, 400, 100%, +14
[2020-04-14] VITALS (95 sets, daily range): BP systolic 37–198; BP diastolic 23–101
[2020-04-14] MEDS: INSULIN REGULAR, HUMAN 100 UNIT/ML 3 ML VIAL SQ PRN ×3 (00:01→18:01)
--- NOTE | 2020-04-14 00:12 | NUR ---
DNP,YESSI DEL CID talked to patient's nephew Micheal regarding patient status and code status. Also did face time with the patient.Per nephew patient still full code.
--- NOTE | 2020-04-14 00:25 | NUR ---
IGOR MIDLINE inserted by PICC LINE LUZ Vázquez flushing well with good blood return. AVINASH MIDLINE removed with tip intact and sent tip to lab per order.
[2020-04-14 03:30] LABS: CALCIUM, SERUM 7.9 mg/dL (8.5-10.1); CREATININE 0.8 mg/dL (0.6-1.3); POTASSIUM 4.6 mmol/L (3.5-5.1)
[2020-04-14] MEDS: BLOOD SUGAR DIAGNOSTIC 1 EACH STRIP IN SCH ×3 (06:11→18:01)
[2020-04-14] MEDS ORDERED: KEY,NONCONTROL,TO KEEP IN PYXI 1 EA MC ONE (06:44)
[2020-04-14] MEDS: FENTANYL CITRAT IV 2,500 MCG in IV NS 0.9% 200 ML IV PRN ×2 (07:09→20:35)
--- NOTE | 2020-04-14 07:20 | NUR ---
Patient remains sedated in no acute distress.VSS. SR HR 81.Tolerating vent settings. Fentanyl gtt infusing at 2 mcg.Versed gtt at 4 mg/hr and Dopamine gtt at 7mcg all infusing via IGOR MID LINE site intact.FSBS WNL.ALL needs met.No acute distress noted. Report given to day shift asiya CASTELAN.
[2020-04-14] MEDS: FAMOTIDINE (20 MG) 20 MG TABLET NG SCH ×2 (08:22→21:18)
[2020-04-14] MEDS: ASPIRIN 325 MG TABLET PO SCH (08:22)
[2020-04-14] MEDS: FLUCONAZOLE (100 MG) 100 MG TABLET PO SCH (08:22)
[2020-04-14 08:24] LABS: ABG OXYGEN SATURATION 97.1 % (92.0-98.5); ABG PCO2 53.4 mmHg (35.0-45.0); ABG PH 7.354 (7.350-7.450); ABG PO2 98.8 mmHg (75.0-100.0); AaDO2 560.8 mmHg; COHb 0.2 % (0.5-1.5); MetHb 0.2 % (0.0-1.5); O2Hb 96.7 % (94.0-97.0); PEEP,BG 14 cm H2O; SITE, ABG Left Radial; VT, ABG 400 mL
[2020-04-14] MEDS: PROSOURCE / PROSTAT (PYXIS) 30 ML UDC GT SCH ×3 (08:24→16:31)
[2020-04-14] MEDS: APIXABAN 5 MG TABLET PO SCH ×2 (08:24→21:18)
[2020-04-14] MEDS: NOREPINEPHRINE 8 MG in IV NS 0.9% 242 ML IV PRN ×3 (09:33→21:58)
[2020-04-14] MEDS: DOPamine 400 MG in IV D5W 250 ML IV PRN (09:39)
[2020-04-14] MEDS: CLOTRIMAZOLE 1% 15 GM TUBE TP SCH ×2 (09:57→16:31)
[2020-04-14] MEDS: CEFEPIME 2 GM in IV D5W 100 ML IV SCH ×2 (10:14→21:17)
[2020-04-14] MEDS: IV NS 0.9% 250 ML IV PRN (15:06)
[2020-04-14] MEDS: MIDAZOLAM HCL 100 MG in IV NS 0.9% 80 ML IV PRN (18:16)
--- NOTE | 2020-04-14 20:00 | NUR ---
Received patient nonverbal covid+ Orally intubated on full vent support and sedated on Fentanyl gtt at 2 mcg and Versed at 4 mg/hr infusing via IGOR MIDLINE.Site intact.SR and BP labile.Levophed gtt infusing and titrated accordingly to keep SBP>90.L NGT feeding infusing. Placement and residual checked.Maintained HOB elevated.FC to gravity drainage.Turned and repositioned.No acute distress noted.Continue monitoring.
--- NOTE | 2020-04-14 20:21 | NUR ---
RT NOTE PT RECEIVED INTUBATED WITH 7.0 ET TUBE @ 22 CM. AMBU BAG @ HOB. SX DONE, ET TUBE SECURED AND PATENT. BILATERAL CHEST RISE. VENT PLUGGED TO RED OUTLET. ALARMS ON AND AUDIBLE. NO DISTRESS NOTED AT THIS TIME. WILL CONTINUE TO MONITOR T/O SHIFT. Addendum: 04/14/20 at 2021 by EDWIN ELAM RT Amended: Links added.
[2020-04-14] MEDS: INSULIN GLARGINE, 100 UNIT/ML CARTRIDGE SQ SCH (21:44)
[2020-04-15] VITALS (72 sets, daily range): BP systolic 46–193; BP diastolic 25–97
[2020-04-15] MEDS: BLOOD SUGAR DIAGNOSTIC 1 EACH STRIP IN SCH ×5 (00:01→23:43)
[2020-04-15] MEDS: INSULIN REGULAR, HUMAN 100 UNIT/ML 3 ML VIAL SQ PRN ×5 (00:10→23:47)
[2020-04-15] MEDS: NOREPINEPHRINE 8 MG in IV NS 0.9% 242 ML IV PRN ×5 (05:46→23:36)
--- NOTE | 2020-04-15 08:00 | NUR ---
agricultural equipment operator note Received patient nonverbal covid+ Orally intubated on full vent support and sedated on Fentanyl gtt at 2 mcg and Versed at 4 mg/hr infusing via IGOR MIDLINE.Site intact.SR and BP labile.Levophed gtt infusing NGT feeding infusing. Placement and residual checked.Maintained HOB elevated.FC to gravity drainage.Turned and repositioned.No acute distress noted.Continue monitoring.
[2020-04-15] MEDS: ASPIRIN 325 MG TABLET PO SCH (08:44)
[2020-04-15] MEDS: FLUCONAZOLE (100 MG) 100 MG TABLET PO SCH (08:44)
[2020-04-15] MEDS: FAMOTIDINE (20 MG) 20 MG TABLET NG SCH ×2 (08:44→21:00)
[2020-04-15] MEDS: PROSOURCE / PROSTAT (PYXIS) 30 ML UDC GT SCH ×3 (08:44→17:05)
[2020-04-15] MEDS: CLOTRIMAZOLE 1% 15 GM TUBE TP SCH ×2 (08:45→17:06)
[2020-04-15] MEDS: APIXABAN 5 MG TABLET PO SCH ×2 (08:50→21:03)
[2020-04-15] MEDS: CEFEPIME 2 GM in IV D5W 100 ML IV SCH ×2 (08:52→21:00)
--- NOTE | 2020-04-15 09:58 | NUR ---
agricultural equipment test engineer note per dr carlos no propofol sedation vocation
[2020-04-15] MEDS: FENTANYL CITRAT IV 2,500 MCG in IV NS 0.9% 200 ML IV PRN ×2 (10:23→22:06)
--- NOTE | 2020-04-15 12:00 | NUR ---
curator horticultural museum note seen by lula rodríguez nurse informaticist updated patient condition ok to do piccline, will f\u
--- NOTE | 2020-04-15 14:54 | NUR ---
RADIO BOARD OPERATOR ANNOUNCER NOTE PICC LINE INSERTED RT UPPER ARM
[2020-04-15] MEDS: GLUCERNA 1.2 1,000 ML BOTTLE NG PRN (17:07)
[2020-04-15] MEDS: MIDAZOLAM HCL 100 MG in IV NS 0.9% 80 ML IV PRN (17:54)
--- NOTE | 2020-04-15 18:15 | NUR ---
curriculum counselor note patient in bed , with vent setting as ordered, fio2 50% at this time ,with nevarez cath to fravity with yellow color urine , cont on versed and fentanyl drip as ordered via rt upper picc line, with flxeseal rectal tube in place , with very small amt of loose stool , keep clean dry , keep hob elevated, ngtube in place verification of placement done by air ausculation , no resudual noted , will cont to monitor closely
--- NOTE | 2020-04-15 20:00 | NUR ---
Received patient non verbal orally intubated on full vent support.Sedated on Fentanyl gtt and Versed gtt.Levophed gtt infusing for BP support and will titrate accordingly.No acute distress noted.SR.VSS.L NGT feeding in progress.Tube placement verified.Maintained HOB elevated.FC to gravity drainage.Turned and repositioned.
[2020-04-15] MEDS: INSULIN GLARGINE, 100 UNIT/ML CARTRIDGE SQ SCH (21:28)
--- NOTE | 2020-04-15 22:00 | NUR ---
FIO2 titrated down to 60% by RT tolerating well.
[2020-04-16] VITALS (59 sets, daily range): BP systolic 57–188; BP diastolic 26–92
[2020-04-16] MEDS: IV NS 0.9% 250 ML IV PRN (01:27)
[2020-04-16] MEDS ORDERED: NOREPINEPHRINE 4 MG/4 ML AMPUL IV ONE (03:33)
[2020-04-16] MEDS: NOREPINEPHRINE 8 MG in IV NS 0.9% 242 ML IV PRN ×5 (04:17→23:38)
[2020-04-16 05:22] LABS: BASOPHILS # (AUTO) 0.1 /CMM (0.0-0.2); BASOPHILS % (AUTO) 0.8 % (0.0-2.0); HEMATOCRIT 26 % (33-45); HEMOGLOBIN 8.3 g/dL (11.5-14.8); LYMPHOCYTES # (AUTO) 1.8 /CMM (0.8-4.8); LYMPHOCYTES % (AUTO) 14.9 % (20.0-44.0); MEAN CORPUSCULAR HGB CONC 32 g/dl (31.0-36.0); MEAN CORPUSCULAR VOLUME 93 fL (82-100); MONOCYTES # (AUTO) 0.5 /CMM (0.1-1.30); MONOCYTES % (AUTO) 3.8 % (2.0-12.0); NEUTROPHILS % (AUTO) 74.5 % (43.0-81.0); PLATELET COUNT (AUTO) 489 /CMM (150-450); WHITE BLOOD COUNT (AUTO) 12.1 K/uL (4.3-11.0)
[2020-04-16 05:24] LABS: ABG BASE EXCESS 4.6 mmol/L; ABG OXYGEN SATURATION 90.3 % (92.0-98.5); ABG PCO2 48.4 mmHg (35.0-45.0); ABG PH 7.411 (7.350-7.450); ABG PO2 57.8 mmHg (75.0-100.0); AaDO2 316.8 mmHg; COHb 1.6 % (0.5-1.5); MetHb 0.1 % (0.0-1.5); O2Hb 88.8 % (94.0-97.0); PEEP,BG 12 cm H2O; VT, ABG 400 mL
[2020-04-16 05:47] LABS: CALCIUM, SERUM 7.8 mg/dL (8.5-10.1); CARBON DIOXIDE 30 mmol/L (21-32); CHLORIDE 101 mmol/L (98-107); CREATININE 0.8 mg/dL (0.6-1.3); GLUCOSE 196 mg/dL (74-106); MAGNESIUM 1.7 mg/dL (1.8-2.4); PHOSPHORUS 2.1 mg/dL (2.5-4.9); POTASSIUM 3.8 mmol/L (3.5-5.1); SODIUM SERUM 138 mmol/L (136-145); UREA NITROGEN, BLOOD 15 mg/dL (7-18)
[2020-04-16] MEDS: BLOOD SUGAR DIAGNOSTIC 1 EACH STRIP IN SCH ×4 (05:52→23:13)
[2020-04-16] MEDS: INSULIN REGULAR, HUMAN 100 UNIT/ML 3 ML VIAL SQ PRN ×4 (05:52→23:29)
--- NOTE | 2020-04-16 07:00 | NUR ---
Patient vent settings titrated up by RT DUE TO am ABG'S result.No acute distress noted. All iv;s infusing well.All needs met.Report given to day shift for FILP.
--- NOTE | 2020-04-16 07:10 | NUR ---
ICU OPENING NOTES RECEIVED PT IN BED, INTUBATED AND SEDATED. ON A VENT, AC 24, TV 400, FIO2 80 AND PEEP OF 12 SATING @96%. ON TELE MONITOR SR. NO SIGNS OF DISTRESS NOTED AT THIS TIME. NG TUBE POSITIVE PLACEMENT CHECKED. GLUCERNA RUNNING @15MLS/HR. IGOR PICC LINE INATCT AND PATENT. LOBATO CATH IN PLACE. SAFETY MEASURES IN PLACE. BED LOCKED AND AT LOWEST POSITION. WILL CONTINUE TO MONITOR.
[2020-04-16] MEDS: FAMOTIDINE (20 MG) 20 MG TABLET NG SCH ×2 (08:52→20:47)
[2020-04-16] MEDS: CEFEPIME 2 GM in IV D5W 100 ML IV SCH ×2 (08:52→20:46)
[2020-04-16] MEDS: FLUCONAZOLE (100 MG) 100 MG TABLET PO SCH (08:52)
[2020-04-16] MEDS: ASPIRIN 325 MG TABLET PO SCH (08:54)
[2020-04-16] MEDS: APIXABAN 5 MG TABLET PO SCH ×2 (08:54→21:43)
[2020-04-16] MEDS: PROSOURCE / PROSTAT (PYXIS) 30 ML UDC GT SCH ×3 (08:54→16:55)
[2020-04-16] MEDS: CLOTRIMAZOLE 1% 15 GM TUBE TP SCH ×2 (08:55→16:55)
[2020-04-16] MEDS: FENTANYL CITRAT IV 2,500 MCG in IV NS 0.9% 200 ML IV PRN (11:49)
[2020-04-16] MEDS: Magnesium 1GM/D5W 100ML PREMIX 100 ML IV SCH ×2 (12:09→13:11)
[2020-04-16] MEDS: MIDAZOLAM HCL 100 MG in IV NS 0.9% 80 ML IV PRN (13:59)
[2020-04-16] MEDS ORDERED: NEUTRA PHOS 1 POWD.PACKET GT ONE (16:00)
--- NOTE | 2020-04-16 19:00 | NUR ---
RN NOTE RECEIVED IN BED, SEDATED. PATIENT IN NO S/SX OF ACUTE DISTRESS AT THIS TIME. PATIENT'S BREATHING IS EVEN AND UNLABORED. PATIENT ON ET TUBE CONNECTED TO MECHANICAL VENT WITH SETTINGS PRESCRIBED, TOLERATING WELL, SATURATION CURRENTLY AT 98%. PATIENT IS SR ON BEDSIDE MONITOR, HR IS 88. NOTED NG TUBE AT L NARE, PLACEMENT WAS CHECKED BY AUSCULTATION AND ASPIRATION, NO RESIDUAL NOTED, WITH TUBE FEEDING OF GLUCERNA REGULATED AT 15 ML/HR. NOTED IGOR PICC PINE, PATENT AND FLUSHING WELL, WITH FENTANYL DRIP INFUSING AT 2 MCG, VERSED AT 4 MG/HR, AND NOREPINEPHRINE AT 0.3 MCG, NO INFECTION NOTED AT IV SITE. LOBATO CATH CONNECTED TO URINE BAG IN PLACE, DRAINING TO A CLEAR YELLOW OUTPUT. SAFETY MEASURES IMPLEMENTED PER PROTOCOL. PATIENT BED ALARM IS ON. HEAD OF BED ELEVATED. BED IS LOCKED, IN LOWEST POSITION AND SIDE RAILS UP. CALL LIGHT WITHIN REACH OF THE PATIENT. WILL CONTINUE TO MONITOR AND REASSESS FOR ANY CHANGES.
--- NOTE | 2020-04-16 19:50 | NUR ---
ICU CLOSING NOTES PT IN BED, INTUBATED AND SEDATED. ON A VENT, AC 24, TV 400, FIO2 70 AND PEEP OF 12 SATING @98%. ON TELE MONITOR SR. NO SIGNS OF DISTRESS NOTED AT THIS TIME. NG TUBE POSITIVE PLACEMENT CHECKED. GLUCERNA RUNNING @15MLS/HR. IGOR PICC LINE INTACT AND PATENT. LOBATO CATH IN PLACE. SAFETY MEASURES IN PLACE. BED LOCKED AND AT LOWEST POSITION. WILL ENDORSE TO NIGHT NURSE FOR FLIP.
[2020-04-16] MEDS: INSULIN GLARGINE, 100 UNIT/ML CARTRIDGE SQ SCH (23:28)
[2020-04-17] VITALS (98 sets, daily range): BP systolic 68–190; BP diastolic 29–76
[2020-04-17] MEDS: FENTANYL CITRAT IV 2,500 MCG in IV NS 0.9% 200 ML IV PRN ×2 (01:31→12:56)
[2020-04-17] MEDS: NOREPINEPHRINE 8 MG in IV NS 0.9% 242 ML IV PRN ×5 (04:23→23:06)
[2020-04-17 04:53] LABS: BASOPHILS # (AUTO) 0.1 /CMM (0.0-0.2); BASOPHILS % (AUTO) 0.7 % (0.0-2.0); EOSINOPHILS % (AUTO) 4.7 % (0.0-6.0); HEMATOCRIT 23 % (33-45); HEMOGLOBIN 7.5 g/dL (11.5-14.8); LYMPHOCYTES # (AUTO) 1.6 /CMM (0.8-4.8); LYMPHOCYTES % (AUTO) 14.9 % (20.0-44.0); MEAN CORPUSCULAR HGB CONC 32 g/dl (31.0-36.0); MEAN CORPUSCULAR VOLUME 93 fL (82-100); MONOCYTES # (AUTO) 0.5 /CMM (0.1-1.30); MONOCYTES % (AUTO) 4.8 % (2.0-12.0); NEUTROPHILS # (AUTO) 8.2 /CMM (1.8-8.9); NEUTROPHILS % (AUTO) 74.9 % (43.0-81.0); PLATELET COUNT (AUTO) 438 /CMM (150-450); RED BLOOD CELL COUNT(AUTO) 2.52 MIL/uL (4.0-5.2)
[2020-04-17 05:03] LABS: CALCIUM, SERUM 7.4 mg/dL (8.5-10.1); CARBON DIOXIDE 30 mmol/L (21-32); CHLORIDE 102 mmol/L (98-107); CREATININE 0.7 mg/dL (0.6-1.3); GLUCOSE 187 mg/dL (74-106); MAGNESIUM 1.9 mg/dL (1.8-2.4); PHOSPHORUS 1.5 mg/dL (2.5-4.9); POTASSIUM 3.5 mmol/L (3.5-5.1); SODIUM SERUM 139 mmol/L (136-145); UREA NITROGEN, BLOOD 13 mg/dL (7-18)
[2020-04-17] MEDS: BLOOD SUGAR DIAGNOSTIC 1 EACH STRIP IN SCH ×4 (05:41→23:34)
[2020-04-17] MEDS: INSULIN REGULAR, HUMAN 100 UNIT/ML 3 ML VIAL SQ PRN ×4 (05:42→23:37)
--- NOTE | 2020-04-17 07:40 | NUR ---
RN CLOSING NOTE PATIENT REMAINS IN ROOM. NO SIGNS OF RESPIRATORY DISTRESS. PATIENT STILL ON ET TUBE CONNECTED TO MECHANICAL VENT WITH CURRENT SETTINGS MAINTAINED. NG TUBE AT L NARE, PLACEMENT WAS CHECKED BY AUSCULTATION AND ASPIRATION, NO RESIDUAL NOTED, WITH TUBE FEEDING OF GLUCERNA REGULATED AT 15 ML/HR. FENTANYL DRIP INFUSING AT 2 MCG, VERSED AT 4 MG/HR, AND NOREPINEPHRINE AT 0.3 MCG, NO INFECTION NOTED AT IV SITE. SAFETY MEASURES IMPLEMENTED, BED IN LOWEST POSITION, LOCKED, SIDE RAILS UP, CALL LIGHT WITHIN REACH. ALL NEEDS AND ORDERS ADDRESSED DURING THE SHIFT. IV ACCESS MAINTAINED INTACT, SECURED AND FLUSING WELL. ALL DUE MEDS GIVEN ORDERED & SCHEDULED ; PATIENT TOLERATED WELL.PATIENT KEPT CLEAN AND COMFORTABLE WITHIN THE SHIFT. ENDORSED TO SOLANGE ESCOBAR FOR CONTINUATION OF CARE.
[2020-04-17] MEDS: FLUCONAZOLE (100 MG) 100 MG TABLET PO SCH (08:40)
[2020-04-17] MEDS: FAMOTIDINE (20 MG) 20 MG TABLET NG SCH ×2 (08:40→20:38)
[2020-04-17] MEDS: ASPIRIN 325 MG TABLET PO SCH (08:40)
[2020-04-17] MEDS: APIXABAN 5 MG TABLET PO SCH ×2 (08:42→20:52)
[2020-04-17] MEDS: CLOTRIMAZOLE 1% 15 GM TUBE TP SCH ×2 (08:43→17:11)
[2020-04-17] MEDS: PROSOURCE / PROSTAT (PYXIS) 30 ML UDC GT SCH ×3 (09:12→17:11)
[2020-04-17] MEDS: CEFEPIME 2 GM in IV D5W 100 ML IV SCH ×2 (09:12→20:53)
[2020-04-17] MEDS: NEUTRA PHOS 1 POWD.PACKET PO SCH ×2 (10:17→17:11)
[2020-04-17 10:35] LABS: ABG BASE EXCESS 0.7 mmol/L; ABG OXYGEN SATURATION 87.4 % (92.0-98.5); ABG PCO2 40.9 mmHg (35.0-45.0); ABG PH 7.411 (7.350-7.450); ABG PO2 54.9 mmHg (75.0-100.0); AaDO2 400.2 mmHg; COHb 1.8 % (0.5-1.5); MetHb 0.6 % (0.0-1.5); O2Hb 85.3 % (94.0-97.0); PEEP,BG 12 cm H2O; SITE, ABG Right Radial; VT, ABG 400 mL
[2020-04-17] MEDS: MIDAZOLAM HCL 100 MG in IV NS 0.9% 80 ML IV PRN (13:07)
[2020-04-17] MEDS: GLUCERNA 1.2 1,000 ML BOTTLE NG PRN (18:26)
--- NOTE | 2020-04-17 18:42 | NUR ---
RN CLOSING NOTES PT REMAINS INTUBATED, ON VENT. NO RESPIRATORY DISTRESS NOTED. TOLERATING TUBE FEEDING WELL. REMAINS ON LEVOPHED, FENTANYL AND VERSED DRIP. KEPT PT COMFORTABLE. TX PROVIDED ORDERED. BLE ELEVATED. REPOSITIONING WHEN ABLE DUE TO ISOLATION. WILL ENDORSE FOR CONTINUITY OF CARE
[2020-04-17] MEDS: INSULIN GLARGINE, 100 UNIT/ML CARTRIDGE SQ SCH (23:34)
[2020-04-18] VITALS (84 sets, daily range): BP systolic 50–215; BP diastolic 27–103
[2020-04-18] MEDS: FENTANYL CITRAT IV 2,500 MCG in IV NS 0.9% 200 ML IV PRN ×2 (02:42→17:13)
[2020-04-18] MEDS: NOREPINEPHRINE 8 MG in IV NS 0.9% 242 ML IV PRN ×3 (04:08→19:27)
[2020-04-18] MEDS: BLOOD SUGAR DIAGNOSTIC 1 EACH STRIP IN SCH ×4 (06:09→23:50)
[2020-04-18] MEDS: INSULIN REGULAR, HUMAN 100 UNIT/ML 3 ML VIAL SQ PRN ×4 (06:12→23:53)
--- NOTE | 2020-04-18 07:36 | NUR ---
RN CLOSING NOTE PATIENT REMAINS IN ROOM. NO SIGNS OF RESPIRATORY DISTRESS. PATIENT STILL ON ET TUBE CONNECTED TO MECHANICAL VENT WITH CURRENT SETTINGS MAINTAINED. NG TUBE AT L NARE, PLACEMENT WAS CHECKED BY AUSCULTATION AND ASPIRATION, NO RESIDUAL NOTED, WITH TUBE FEEDING OF GLUCERNA REGULATED AT 15 ML/HR. FENTANYL DRIP INFUSING AT 2 MCG, VERSED AT 4 MG/HR, AND NOREPINEPHRINE AT 0.2 MCG, NO INFECTION NOTED AT IV SITE. SAFETY MEASURES IMPLEMENTED, BED IN LOWEST POSITION, LOCKED, SIDE RAILS UP, CALL LIGHT WITHIN REACH. ALL NEEDS AND ORDERS ADDRESSED DURING THE SHIFT. IV ACCESS MAINTAINED INTACT, SECURED AND FLUSING WELL. ALL DUE MEDS GIVEN ORDERED & SCHEDULED ; PATIENT TOLERATED WELL.PATIENT KEPT CLEAN AND COMFORTABLE WITHIN THE SHIFT. ENDORSED TO SOLANGE ESCOBAR FOR CONTINUATION OF CARE.
[2020-04-18] MEDS: CEFEPIME 2 GM in IV D5W 100 ML IV SCH ×2 (08:25→21:04)
[2020-04-18] MEDS: PROSOURCE / PROSTAT (PYXIS) 30 ML UDC GT SCH ×3 (08:28→16:09)
[2020-04-18] MEDS: CLOTRIMAZOLE 1% 15 GM TUBE TP SCH ×2 (09:00→16:09)
[2020-04-18] MEDS: FLUCONAZOLE (100 MG) 100 MG TABLET PO SCH (09:28)
[2020-04-18] MEDS: FAMOTIDINE (20 MG) 20 MG TABLET NG SCH ×2 (09:28→21:05)
[2020-04-18] MEDS: ASPIRIN 325 MG TABLET PO SCH (09:28)
[2020-04-18] MEDS: APIXABAN 5 MG TABLET PO SCH ×2 (10:00→21:00)
[2020-04-18 10:15] LABS: BASOPHILS % (AUTO) 0.4 % (0.0-2.0); EOSINOPHILS % (AUTO) 3.3 % (0.0-6.0); LYMPHOCYTES # (AUTO) 1.2 /CMM (0.8-4.8); LYMPHOCYTES % (AUTO) 12.3 % (20.0-44.0); MEAN CORPUSCULAR HGB CONC 32 g/dl (31.0-36.0); MEAN CORPUSCULAR VOLUME 96 fL (82-100); MONOCYTES # (AUTO) 0.4 /CMM (0.1-1.30); MONOCYTES % (AUTO) 4.5 % (2.0-12.0); NEUTROPHILS # (AUTO) 7.5 /CMM (1.8-8.9); NEUTROPHILS % (AUTO) 79.5 % (43.0-81.0); PLATELET COUNT (AUTO) 271 /CMM (150-450); WHITE BLOOD COUNT (AUTO) 9.4 K/uL (4.3-11.0)
[2020-04-18 11:16] LABS: BILIRUBIN,TOTAL 0.6 mg/dL (0.2-1.0); CALCIUM, SERUM 6.9 mg/dL (8.5-10.1); CREATININE 0.6 mg/dL (0.6-1.3); MAGNESIUM 1.4 mg/dL (1.8-2.4); PHOSPHORUS 2.1 mg/dL (2.5-4.9); POTASSIUM 3.4 mmol/L (3.5-5.1); TOTAL PROTEIN, SERUM 5.5 g/dL (6.4-8.2)
[2020-04-18] MEDS: MIDAZOLAM HCL 100 MG in IV NS 0.9% 80 ML IV PRN (11:44)
[2020-04-18 11:57] LABS: ALBUMIN 1.1 g/dL (3.4-5.0)
[2020-04-18 13:28] LABS: HEMATOCRIT 20 % (33-45)
[2020-04-18 13:30] LABS: HEMOGLOBIN 6.4 g/dL (11.5-14.8)
[2020-04-18 13:55] LABS: EOSINOPHILS % (MANUAL) 3 % (0-4); LYMPHOCYTES % (MANUAL) 13 % (16-48); MONOCYTES % (MANUAL) 4 % (0-11.0); NEUTROPHILS % (MANUAL) 80 (42-76)
[2020-04-18] MEDS: ALBUMIN 25% 25 GM in PREMIX 1 EA IV SCH (14:30)
[2020-04-18] MEDS ORDERED: NEUTRA PHOS 1 POWD.PACKET NG ONE (15:30)
--- NOTE | 2020-04-18 19:20 | NUR ---
TRANSIT VEHICLE INSPECTOR OPENING NOTES: Rec'd pt in bed, intubated 7/22cm at the lip and sedated. Tolerating vent settings well. No resp distres noted at this time. IGOR PICC line patent and infusing Fentanyl at 2mcg/kg, Versed at 4ml.hr. and Levo at 0.15mcg/kg/min. Arias catheter in place patent and draining urine via gravity. Flexiseal in place. Safety measures in place. Will continue to monitor.
--- NOTE | 2020-04-18 19:45 | NUR ---
BUSINESS REPRESENTATIVE NOTE: Pt noted to be desatting to 60-70%. RT titrated fio2 up to 100%. Will continue to monitor.
[2020-04-18] MEDS: INSULIN GLARGINE, 100 UNIT/ML CARTRIDGE SQ SCH (21:22)
[2020-04-19] VITALS (93 sets, daily range): BP systolic 43–167; BP diastolic 24–78
[2020-04-19] MEDS: ALBUMIN 25% 25 GM in PREMIX 1 EA IV SCH (02:11)
[2020-04-19] MEDS: FENTANYL CITRAT IV 2,500 MCG in IV NS 0.9% 200 ML IV PRN ×2 (04:37→09:41)
[2020-04-19 04:54] LABS: BASOPHILS # (AUTO) 0.1 /CMM (0.0-0.2); EOSINOPHILS % (AUTO) 2.5 % (0.0-6.0); HEMATOCRIT 22 % (33-45); HEMOGLOBIN 7.1 g/dL (11.5-14.8); LYMPHOCYTES # (AUTO) 0.8 /CMM (0.8-4.8); LYMPHOCYTES % (AUTO) 10.7 % (20.0-44.0); MEAN CORPUSCULAR HGB CONC 33 g/dl (31.0-36.0); MEAN CORPUSCULAR VOLUME 94 fL (82-100); MONOCYTES # (AUTO) 0.3 /CMM (0.1-1.30); MONOCYTES % (AUTO) 3.8 % (2.0-12.0); PLATELET COUNT (AUTO) 196 /CMM (150-450); RED BLOOD CELL COUNT(AUTO) 2.32 MIL/uL (4.0-5.2); WHITE BLOOD COUNT (AUTO) 7.4 K/uL (4.3-11.0)
[2020-04-19 05:14] LABS: CALCIUM, SERUM 7.3 mg/dL (8.5-10.1); CREATININE 0.7 mg/dL (0.6-1.3); MAGNESIUM 1.6 mg/dL (1.8-2.4); PHOSPHORUS 2.4 mg/dL (2.5-4.9); POTASSIUM 3.6 mmol/L (3.5-5.1)
[2020-04-19] MEDS: BLOOD SUGAR DIAGNOSTIC 1 EACH STRIP IN SCH ×4 (05:30→23:58)
[2020-04-19] MEDS: INSULIN REGULAR, HUMAN 100 UNIT/ML 3 ML VIAL SQ PRN ×2 (05:33→18:00)
[2020-04-19 05:49] LABS: BAND % (MANUAL) 9 % (0.0-5.0); EOSINOPHILS % (MANUAL) 3 % (0-4); LYMPHOCYTES % (MANUAL) 14 % (16-48); METAMYELOCYTES % 2 % (0-0); MONOCYTES % (MANUAL) 2 % (0-11.0); MYELOCYTES % 5 % (0-0); NEUTROPHILS % (MANUAL) 65 (42-76)
--- NOTE | 2020-04-19 06:07 | NUR ---
PHOTOLITHOGRAPHIC STRIPPER NOTE: Spoke w/ pharmacy to send new bag of Levo.
[2020-04-19] MEDS: NOREPINEPHRINE 8 MG in IV NS 0.9% 242 ML IV PRN ×2 (06:40→18:05)
--- NOTE | 2020-04-19 07:30 | NUR ---
RN OPENING NOTE PATIENT IN ROOM. NO SIGNS OF RESPIRATORY DISTRESS. PATIENT STILL ON ET TUBE CONNECTED TO MECHANICAL VENT WITH CURRENT SETTINGS MAINTAINED. NG TUBE AT L NARE, PLACEMENT WAS CHECKED BY AUSCULTATION AND ASPIRATION, NO RESIDUAL NOTED, WITH TUBE FEEDING OF GLUCERNA REGULATED AT 15 ML/HR. FENTANYL DRIP INFUSING AT 2 MCG, VERSED AT 4 MG/HR, AND NOREPINEPHRINE AT 0.1 MCG, NO INFECTION NOTED AT IV SITE. SAFETY MEASURES IMPLEMENTED, BED IN LOWEST POSITION, LOCKED, SIDE RAILS UP, CALL LIGHT WITHIN REACH. WILL CONTUNIE TO MONITOR
[2020-04-19] MEDS: FAMOTIDINE (20 MG) 20 MG TABLET NG SCH (08:28)
[2020-04-19] MEDS: CEFEPIME 2 GM in IV D5W 100 ML IV SCH ×2 (08:28→21:20)
[2020-04-19] MEDS: FLUCONAZOLE (100 MG) 100 MG TABLET PO SCH (08:28)
[2020-04-19] MEDS: ASPIRIN 325 MG TABLET PO SCH ×2 (08:29→09:00)
[2020-04-19] MEDS: APIXABAN 5 MG TABLET PO SCH ×2 (09:00→21:00)
[2020-04-19] MEDS: PROSOURCE / PROSTAT (PYXIS) 30 ML UDC GT SCH ×3 (09:01→16:21)
[2020-04-19] MEDS: CLOTRIMAZOLE 1% 15 GM TUBE TP SCH ×2 (09:02→17:04)
--- NOTE | 2020-04-19 09:04 | NUR ---
RN NOTES PT HGB IS 7.1 WILL HOLD ASPIRIN AND ELIQUIS WILL INFORM DR
[2020-04-19] MEDS: Magnesium 1GM/D5W 100ML PREMIX 100 ML IV SCH ×2 (09:08→10:02)
[2020-04-19] MEDS: MIDAZOLAM HCL 100 MG in IV NS 0.9% 80 ML IV PRN (09:45)
--- NOTE | 2020-04-19 10:25 | NUR ---
RN NOTES said ok to hold
[2020-04-19] MEDS: NEUTRA PHOS 1 POWD.PACKET PO SCH ×2 (10:35→16:24)
[2020-04-19 11:22] LABS: ABG BASE EXCESS 1.9 mmol/L; ABG OXYGEN SATURATION 79.1 % (92.0-98.5); ABG PCO2 49.7 mmHg (35.0-45.0); ABG PH 7.363 (7.350-7.450); ABG PO2 43.6 mmHg (75.0-100.0); AaDO2 474.6 mmHg; COHb 0.6 % (0.5-1.5); MetHb 0.3 % (0.0-1.5); O2Hb 78.4 % (94.0-97.0); PEEP,BG 12 cm H2O; SITE, ABG Right Radial; VENT MODE, BG AC 80%; VT, ABG 400 mL
[2020-04-19 12:07] LABS: ABG BASE EXCESS 1.1 mmol/L; ABG OXYGEN SATURATION 76.5 % (92.0-98.5); ABG PCO2 46.7 mmHg (35.0-45.0); ABG PH 7.373 (7.350-7.450); ABG PO2 41.9 mmHg (75.0-100.0); AaDO2 479.5 mmHg; COHb 0.8 % (0.5-1.5); MetHb 0.5 % (0.0-1.5); O2Hb 75.5 % (94.0-97.0); SITE, ABG Right Radial
--- NOTE | 2020-04-19 16:00 | NUR ---
RN NOTES FIO2 100 AND PEEP 14
--- NOTE | 2020-04-19 18:19 | NUR ---
RN CLOSING NOTE PATIENT IN ROOM. NO SIGNS OF RESPIRATORY DISTRESS. PATIENT STILL ON ET TUBE CONNECTED TO MECHANICAL VENT WITH CURRENT SETTINGS MAINTAINED. NG TUBE AT L NARE, PLACEMENT WAS CHECKED BY AUSCULTATION AND ASPIRATION, NO RESIDUAL NOTED, WITH TUBE FEEDING OF GLUCERNA REGULATED AT 15 ML/HR. FENTANYL DRIP INFUSING AT 2 MCG, VERSED AT 4 MG/HR, AND NOREPINEPHRINE AT 0.3 MCG, NO INFECTION NOTED AT IV SITE. SAFETY MEASURES IMPLEMENTED PER HOSPITAL POLICY. BED IS IN LOWEST POSITION, LOCKED, SIDE RAILS UP, CALL LIGHT WITHIN REACH. WILL ENDORSE TO PM NURSE FOR FLIP
--- NOTE | 2020-04-19 19:10 | NUR ---
DRY CLIPPER TENDER OPENING NOTES: Rec'd pt in bed, intubated 7/22cm at the lip and sedated. Tolerating vent settings well. SR on tele monitor. No resp distres noted at this time. IGOR PICC line patent and infusing Fentanyl at 2mcg/kg, Versed at 4ml/hr. and Levo at 0.1mcg/kg/min. Arias catheter in place patent and draining urine via gravity. Flexiseal in place. Safety measures in place. Will continue to monitor.
[2020-04-19] MEDS: FAMOTIDINE/PF INJ 20 MG/2 ML VIAL IV SCH (21:21)
[2020-04-19] MEDS: INSULIN GLARGINE, 100 UNIT/ML CARTRIDGE SQ SCH (22:02)
[2020-04-20] VITALS (98 sets, daily range): BP systolic 72–140; BP diastolic 27–62
[2020-04-20] MEDS: FENTANYL CITRAT IV 2,500 MCG in IV NS 0.9% 200 ML IV PRN ×2 (00:14→12:37)
[2020-04-20] MEDS: NOREPINEPHRINE 8 MG in IV NS 0.9% 242 ML IV PRN ×3 (04:19→17:49)
[2020-04-20] MEDS: BLOOD SUGAR DIAGNOSTIC 1 EACH STRIP IN SCH ×4 (05:44→23:58)
[2020-04-20] MEDS: INSULIN REGULAR, HUMAN 100 UNIT/ML 3 ML VIAL SQ PRN ×4 (05:47→18:13)
[2020-04-20 07:57] LABS: ABG OXYGEN SATURATION 89.4 % (92.0-98.5); ABG PCO2 57.5 mmHg (35.0-45.0); ABG PH 7.276 (7.350-7.450); ABG PO2 63.1 mmHg (75.0-100.0); AaDO2 592.4 mmHg; COHb 0.7 % (0.5-1.5); MetHb 0.2 % (0.0-1.5); O2Hb 88.6 % (94.0-97.0); SITE, ABG Right Femoral; VENT MODE, BG AC 24 400 100 +14
--- NOTE | 2020-04-20 08:03 | NUR ---
WOUND CARE FOLLOW UP: REVIEWED CHART, NURSING DOCUMENTATION AND PHOTOS WHICH INDICATE SOME IMPROVEMENT WITH INCONTINENCE ASSOCIATED SKIN DAMAGE TO GLUTEAL CREASE. SOME REDNESS/RASH REMAINS TO INNER AND LOWER BUTTOCKS. RECOMMEND CONTINUE PRESENT TREATMENT. DISCUSSED WITH NURSING STAFF. MD IN AGREEMENT WITH PLAN OF CARE.
[2020-04-20] MEDS: FLUCONAZOLE (100 MG) 100 MG TABLET PO SCH (08:22)
[2020-04-20] MEDS: CEFEPIME 2 GM in IV D5W 100 ML IV SCH ×2 (08:22→21:33)
[2020-04-20] MEDS: ASPIRIN 325 MG TABLET PO SCH (08:22)
[2020-04-20] MEDS: FAMOTIDINE/PF INJ 20 MG/2 ML VIAL IV SCH ×2 (08:22→21:33)
[2020-04-20] MEDS: APIXABAN 5 MG TABLET PO SCH (08:27)
[2020-04-20] MEDS: CLOTRIMAZOLE 1% 15 GM TUBE TP SCH ×2 (08:28→16:56)
[2020-04-20] MEDS: PROSOURCE / PROSTAT (PYXIS) 30 ML UDC GT SCH ×3 (08:28→16:55)
--- NOTE | 2020-04-20 10:02 | NUR ---
IV SPREADSHEET FOR FENTANYL INCORRECTLY INPUT. PATIENT ON 2MCG/KG/HR RUNNING AT 17.2 ML ON THE PUMP, VERIFIED WITH JENNIFER, PHARMACIST, NURSE INCORRECTLY PUT THE NUMBERS ON THE SPREADSHEET BUT ADMINISTERED THE CORRECT DOSE ON THE PUMP.
[2020-04-20] MEDS: MIDAZOLAM HCL 100 MG in IV NS 0.9% 80 ML IV PRN (12:37)
--- NOTE | 2020-04-20 14:18 | NUR ---
WENT TO CLEANING PROFESSIONAL BLOOD FROM LAB. PROPERLY SPIKED THE BAG, UPON HANGING BAG, LEAK NOTED FROM SIDE OF BAG. SENT BACK TO LAB. AWAITING NEW BAG OF BLOOD.
[2020-04-20 15:23] LABS: C-REACTIVE PROTEIN 9.2 mg/dL (0.0-0.9)
--- NOTE | 2020-04-20 19:05 | NUR ---
SUPERCHARGER MECHANIC OPENING NOTES: Rec'd pt in bed, intubated 7/22cm at the lip and sedated. Tolerating vent settings well. SR on tele monitor. No resp distres noted at this time. IGOR PICC line patent and infusing Fentanyl at 2mcg/kg, Versed at 4ml/hr, and Levo at 0.2mcg/kg/min. Arias catheter in place patent and draining urine via gravity. Flexiseal in place. Safety measures in place. Will continue to monitor.
[2020-04-20] MEDS: INSULIN GLARGINE, 100 UNIT/ML CARTRIDGE SQ SCH (22:01)
--- NOTE | 2020-04-20 22:12 | NUR ---
UTILIZATION REVIEWER NOTE: 2139: Paged electrician front, Dr. Vega regarding pt's Eliquis dose as pt has low h/h and rec'd 1 unit of blood today. No reply. 2199: Paged electrician front again. Spoke w/ Dr. Vega who gave new orders for stool for occult blood and to decrease eliquis to 2.5mg and to give tonight. Orders noted and carried out. Will administer once pharmacy verifies.
[2020-04-20] MEDS: APIXABAN 2.5 MG TABLET PO SCH (22:39)
[2020-04-21] VITALS (82 sets, daily range): BP systolic 47–181; BP diastolic 27–103
[2020-04-21] MEDS: INSULIN REGULAR, HUMAN 100 UNIT/ML 3 ML VIAL SQ PRN ×5 (00:01→23:37)
[2020-04-21] MEDS: NOREPINEPHRINE 8 MG in IV NS 0.9% 242 ML IV PRN ×3 (00:32→23:24)
[2020-04-21] MEDS: GLUCERNA 1.2 1,000 ML BOTTLE NG PRN (01:25)
[2020-04-21] MEDS: FENTANYL CITRAT IV 2,500 MCG in IV NS 0.9% 200 ML IV PRN ×2 (02:33→16:40)
[2020-04-21 04:39] LABS: BASOPHILS % (AUTO) 0.4 % (0.0-2.0); EOSINOPHILS % (AUTO) 2.4 % (0.0-6.0); HEMATOCRIT 32 % (33-45); HEMOGLOBIN 10.2 g/dL (11.5-14.8); LYMPHOCYTES # (AUTO) 0.5 /CMM (0.8-4.8); LYMPHOCYTES % (AUTO) 6.7 % (20.0-44.0); MEAN CORPUSCULAR HGB CONC 32 g/dl (31.0-36.0); MEAN CORPUSCULAR VOLUME 97 fL (82-100); MONOCYTES # (AUTO) 0.2 /CMM (0.1-1.30); MONOCYTES % (AUTO) 2.9 % (2.0-12.0); NEUTROPHILS # (AUTO) 6.5 /CMM (1.8-8.9); NEUTROPHILS % (AUTO) 87.6 % (43.0-81.0); PLATELET COUNT (AUTO) 149 /CMM (150-450); RED BLOOD CELL COUNT(AUTO) 3.26 MIL/uL (4.0-5.2); WHITE BLOOD COUNT (AUTO) 7.5 K/uL (4.3-11.0)
[2020-04-21 04:54] LABS: CALCIUM, SERUM 7.5 mg/dL (8.5-10.1); CREATININE 0.9 mg/dL (0.6-1.3); MAGNESIUM 1.7 mg/dL (1.8-2.4); PHOSPHORUS 3.2 mg/dL (2.5-4.9); POTASSIUM 3.3 mmol/L (3.5-5.1)
[2020-04-21] MEDS: BLOOD SUGAR DIAGNOSTIC 1 EACH STRIP IN SCH ×4 (05:57→23:37)
[2020-04-21 07:52] LABS: ABG BASE EXCESS -1.5 mmol/L; ABG OXYGEN SATURATION 96.3 % (92.0-98.5); ABG PCO2 60.8 mmHg (35.0-45.0); ABG PH 7.256 (7.350-7.450); ABG PO2 88.3 mmHg (75.0-100.0); AaDO2 563.9 mmHg; COHb 0.4 % (0.5-1.5); MetHb 0.7 % (0.0-1.5); O2Hb 95.2 % (94.0-97.0); SITE, ABG Right Radial; VENT MODE, BG AC 24 400 100% +14
[2020-04-21] MEDS: PROSOURCE / PROSTAT (PYXIS) 30 ML UDC GT SCH ×3 (09:00→17:15)
[2020-04-21] MEDS: FAMOTIDINE/PF INJ 20 MG/2 ML VIAL IV SCH ×2 (09:42→20:37)
[2020-04-21] MEDS: ASPIRIN 325 MG TABLET PO SCH (09:42)
[2020-04-21] MEDS: APIXABAN 2.5 MG TABLET PO SCH ×2 (09:43→20:45)
[2020-04-21] MEDS: FLUCONAZOLE (100 MG) 100 MG TABLET PO SCH (09:44)
[2020-04-21] MEDS: CLOTRIMAZOLE 1% 15 GM TUBE TP SCH ×2 (09:44→17:15)
[2020-04-21] MEDS ORDERED: POTASSIUM CHLORIDE 20 MEQ POWDER PACKET GT SCH (10:00)
[2020-04-21] MEDS: CEFEPIME 2 GM in IV D5W 100 ML IV SCH ×2 (11:09→20:37)
[2020-04-21] MEDS: Magnesium 1GM/D5W 100ML PREMIX 100 ML IV SCH ×2 (11:16→11:47)
[2020-04-21] MEDS: MIDAZOLAM HCL 100 MG in IV NS 0.9% 80 ML IV PRN (11:44)
[2020-04-21 15:16] LABS: C-REACTIVE PROTEIN 12.5 mg/dL (0.0-0.9)
[2020-04-21] MEDS: HYDROCORTISONE SOD SUCCINATE 100 MG/2 ML VIAL IV SCH ×2 (15:26→20:37)
--- NOTE | 2020-04-21 17:45 | NUR ---
NOTED PT VITALS UNOBTAINABLE. CODE BLUE INITIATED. PT REGAINED VITAL SIGNS. WILL CONTINUE TO MONITOR.
--- NOTE | 2020-04-21 19:00 | NUR ---
RN NOTE RECEIVED IN BED, SEDATED. PATIENT IN NO S/SX OF ACUTE DISTRESS AT THIS TIME. PATIENT'S BREATHING IS EVEN AND UNLABORED. PATIENT ON ET TUBE CONNECTED TO MECHANICAL VENT WITH SETTINGS PRESCRIBED, TOLERATING WELL, SATURATION CURRENTLY AT 95%. PATIENT IS SR-ST ON BEDSIDE MONITOR, HR IS 114. NOTED NG TUBE AT L NARE, PLACEMENT WAS CHECKED BY AUSCULTATION AND ASPIRATION, NO RESIDUAL NOTED, WITH TUBE FEEDING OF GLUCERNA REGULATED AT 15 ML/HR. NOTED IGOR PICC PINE, PATENT AND FLUSHING WELL, WITH FENTANYL DRIP INFUSING AT 2 MCG, VERSED AT 4 MG/HR, AND NOREPINEPHRINE AT 0.2 MCG, NO INFECTION NOTED AT IV SITE. LOBATO CATH CONNECTED TO URINE BAG IN PLACE, DRAINING TO A CLEAR YELLOW OUTPUT. SAFETY MEASURES IMPLEMENTED PER PROTOCOL. PATIENT BED ALARM IS ON. HEAD OF BED ELEVATED. BED IS LOCKED, IN LOWEST POSITION AND SIDE RAILS UP. CALL LIGHT WITHIN REACH OF THE PATIENT. WILL CONTINUE TO MONITOR AND REASSESS FOR ANY CHANGES.
--- NOTE | 2020-04-21 19:10 | NUR ---
PT REMAINS IN BED. BLOOD PRESSURE TRENDING LOWER. PT DNR. ALL MEDS GIVEN ORDERED. KEPT COMFORTABLE AT ALL TIMES. WILL ENDORSE TO NEXT SHIFT.
[2020-04-21] MEDS: INSULIN GLARGINE, 100 UNIT/ML CARTRIDGE SQ SCH (23:36)
[2020-04-22] VITALS (96 sets, daily range): BP systolic 74–135; BP diastolic 32–74
[2020-04-22] MEDS: IV NS 0.9% 250 ML IV PRN (03:27)
[2020-04-22 04:32] LABS: BASOPHILS % (AUTO) 0.2 % (0.0-2.0); EOSINOPHILS % (AUTO) 1.3 % (0.0-6.0); HEMATOCRIT 35 % (33-45); HEMOGLOBIN 11.3 g/dL (11.5-14.8); LYMPHOCYTES # (AUTO) 0.7 /CMM (0.8-4.8); LYMPHOCYTES % (AUTO) 7.2 % (20.0-44.0); MEAN CORPUSCULAR HGB CONC 32 g/dl (31.0-36.0); MEAN CORPUSCULAR VOLUME 96 fL (82-100); MONOCYTES # (AUTO) 0.3 /CMM (0.1-1.30); NEUTROPHILS # (AUTO) 8.3 /CMM (1.8-8.9); NEUTROPHILS % (AUTO) 88.3 % (43.0-81.0); PLATELET COUNT (AUTO) 129 /CMM (150-450); RED BLOOD CELL COUNT(AUTO) 3.68 MIL/uL (4.0-5.2); WHITE BLOOD COUNT (AUTO) 9.4 K/uL (4.3-11.0)
[2020-04-22 04:54] LABS: CALCIUM, SERUM 7.8 mg/dL (8.5-10.1); CREATININE 0.9 mg/dL (0.6-1.3); MAGNESIUM 2.3 mg/dL (1.8-2.4); PHOSPHORUS 3.6 mg/dL (2.5-4.9); POTASSIUM 4.5 mmol/L (3.5-5.1)
[2020-04-22] MEDS: HYDROCORTISONE SOD SUCCINATE 100 MG/2 ML VIAL IV SCH ×3 (05:10→20:37)
[2020-04-22] MEDS: BLOOD SUGAR DIAGNOSTIC 1 EACH STRIP IN SCH ×4 (05:10→23:55)
--- NOTE | 2020-04-22 05:36 | NUR ---
RN NOTE FIO2 TITRATED TO 80% BY JULIAN PRECIADO. WILL CONTINUE TO MONITOR OXYGENATION STATUS.
[2020-04-22 05:59] LABS: CREATINE KINASE, TOTAL 49 U/L (26-192); FERRITIN 401 ng/mL (8-388)
[2020-04-22] MEDS ORDERED: NOREPINEPHRINE 8MG/250ML RTU 250 ML IV ONE (06:25)
[2020-04-22] MEDS: NOREPINEPHRINE 8 MG in IV NS 0.9% 242 ML IV PRN ×2 (06:29→17:25)
[2020-04-22] MEDS: FENTANYL CITRAT IV 2,500 MCG in IV NS 0.9% 200 ML IV PRN ×2 (06:50→21:25)
[2020-04-22 07:37] LABS: ABG BASE EXCESS -2.4 mmol/L; ABG OXYGEN SATURATION 92.3 % (92.0-98.5); ABG PCO2 44.2 mmHg (35.0-45.0); ABG PH 7.341 (7.350-7.450); ABG PO2 61.4 mmHg (75.0-100.0); AaDO2 462.6 mmHg; MetHb 0.1 % (0.0-1.5); O2Hb 91.3 % (94.0-97.0); PEEP,BG 12 cm H2O; SITE, ABG Right Radial; VT, ABG 400 mL
--- NOTE | 2020-04-22 07:45 | NUR ---
RN CLOSING NOTE PATIENT REMAINS IN ROOM. NO SIGNS OF RESPIRATORY DISTRESS. PATIENT STILL ON ET TUBE CONNECTED TO MECHANICAL VENT WITH CURRENT SETTINGS MAINTAINED. NG TUBE AT L NARE, PLACEMENT WAS CHECKED BY AUSCULTATION AND ASPIRATION, NO RESIDUAL NOTED, WITH TUBE FEEDING OF GLUCERNA REGULATED AT 15 ML/HR. FENTANYL DRIP INFUSING AT 2 MCG, VERSED AT 4 MG/HR, AND NOREPINEPHRINE AT 0.2 MCG, NO INFECTION NOTED AT IV SITE. SAFETY MEASURES IMPLEMENTED, BED IN LOWEST POSITION, LOCKED, SIDE RAILS UP, CALL LIGHT WITHIN REACH. ALL NEEDS AND ORDERS ADDRESSED DURING THE SHIFT. IV ACCESS MAINTAINED INTACT, SECURED AND FLUSING WELL. ALL DUE MEDS GIVEN ORDERED & SCHEDULED ; PATIENT TOLERATED WELL.PATIENT KEPT CLEAN AND COMFORTABLE WITHIN THE SHIFT. ENDORSED TO RADHA ESCOBAR FOR CONTINUATION OF CARE.
[2020-04-22] MEDS: ASPIRIN 325 MG TABLET PO SCH (08:11)
[2020-04-22] MEDS: FLUCONAZOLE (100 MG) 100 MG TABLET PO SCH (08:11)
[2020-04-22] MEDS: FAMOTIDINE/PF INJ 20 MG/2 ML VIAL IV SCH ×2 (08:12→20:37)
[2020-04-22] MEDS: APIXABAN 2.5 MG TABLET PO SCH ×2 (08:13→20:41)
[2020-04-22] MEDS: CEFEPIME 2 GM in IV D5W 100 ML IV SCH ×2 (08:14→20:37)
[2020-04-22] MEDS: PROSOURCE / PROSTAT (PYXIS) 30 ML UDC GT SCH ×3 (08:20→17:32)
[2020-04-22] MEDS: CLOTRIMAZOLE 1% 15 GM TUBE TP SCH ×2 (08:22→17:31)
[2020-04-22] MEDS: INSULIN REGULAR, HUMAN 100 UNIT/ML 3 ML VIAL SQ PRN ×3 (11:41→23:57)
[2020-04-22] MEDS: MIDAZOLAM HCL 100 MG in IV NS 0.9% 80 ML IV PRN (13:16)
[2020-04-22 14:02] LABS: C-REACTIVE PROTEIN 17.2 mg/dL (0.0-0.9)
--- NOTE | 2020-04-22 19:25 | NUR ---
ICU OPENING NOTES RECEIVED SEDATED PATIENT IN NO S/SX OF ACUTE DISTRESS AT THIS TIME. NO SOB NOTED. PATIENT'S BREATHING IS EVEN AND UNLABORED. PATIENT ON MECHANICAL VENT; SETTINGS PRESCRIBED; PT TOLERATED WELL. AMBU BAG AT BED SIDE ALARMS SET PER PROTOCOL AND AUDIBLE. VENT PLUGGED IN TO RED OUTLET. NO DISTRESS NOTED. NOTED NGT ON L NARE IN PLACED. PLACEMENT VERIFIED WITH AUSCULTATION. WITH ONGOING FEEDING OF GLUCERNA @15ML/HR. NOTED IV SITE ON R UA PICC LINE; PATENT, INTACT AND FLUSHING WELL; NO S/S OF INFECTION OR INFILTRATION. PATIENT HAS ONGOING LEVO DRIP ; RECEIVED @ DOSE RATE OF 0.1MCG/KG/MIN , FENTANYL DRIP VIA CASKET INSPECTOR @2MCG/KG/MIN AND VERSED DRIP VIA CASKET INSPECTOR @4MCG/KG/MIN; ALL MONITORED AND INFUSING PER PROTOCOL. LOBATO CATH IN PLACE, MINIMAL URINE OUTPUT NOTED.SAFETY MEASURES HAVE BEEN PROVIDED AND IMPLEMENTED. PATIENT BED ALARM IS ON. HEAD OF BED ELEVATED. BED IS LOCKED, IN LOWEST POSITION AND SIDE RAILS UP. CALL LIGHT WITHIN REACH OF THE PATIENT. APPLICABLE ISOLATION PRECAUTIONS IN PLACE. WILL CONTINUE TO MONITOR AND REASSESS FOR ANY CHANGES AND WILL CARRY OUT ANY ONGOING AND ACTIVE MD ORDER.
[2020-04-22] MEDS: INSULIN GLARGINE, 100 UNIT/ML CARTRIDGE SQ SCH (21:54)
--- NOTE | 2020-04-22 22:00 | NUR ---
RN NOTES NO CHANGE IN PATIENT CONDITION AT THIS TIME PATIENT VITALS STABLE, NO SIGNS OF ACUTE RESPIRATORY DISTRESS.WILL CONTINUE TO MONITOR AND REASSESS FOR ANY CHANGES THROUGHOUT THE SHIFT.
[2020-04-23] VITALS (90 sets, daily range): BP systolic 61–153; BP diastolic 17–100
--- NOTE | 2020-04-23 03:00 | NUR ---
RN NOTES NO CHANGE IN PATIENT CONDITION AT THIS TIME PATIENT VITALS STABLE, NO SIGNS OF ACUTE RESPIRATORY DISTRESS. WILL CONTINUE TO MONITOR AND REASSESS FOR ANY CHANGES THROUGHOUT THE SHIFT.
[2020-04-23] MEDS: HYDROCORTISONE SOD SUCCINATE 100 MG/2 ML VIAL IV SCH ×3 (04:16→20:51)
[2020-04-23] MEDS: BLOOD SUGAR DIAGNOSTIC 1 EACH STRIP IN SCH ×4 (05:13→23:27)
[2020-04-23] MEDS: INSULIN REGULAR, HUMAN 100 UNIT/ML 3 ML VIAL SQ PRN ×4 (05:15→23:32)
[2020-04-23 05:25] LABS: BASOPHILS % (AUTO) 0.4 % (0.0-2.0); EOSINOPHILS % (AUTO) 0.5 % (0.0-6.0); HEMATOCRIT 32 % (33-45); HEMOGLOBIN 10.1 g/dL (11.5-14.8); LYMPHOCYTES % (AUTO) 10.3 % (20.0-44.0); MEAN CORPUSCULAR HGB CONC 32 g/dl (31.0-36.0); MEAN CORPUSCULAR VOLUME 97 fL (82-100); MONOCYTES # (AUTO) 0.4 /CMM (0.1-1.30); MONOCYTES % (AUTO) 4.3 % (2.0-12.0); NEUTROPHILS # (AUTO) 8.3 /CMM (1.8-8.9); NEUTROPHILS % (AUTO) 84.5 % (43.0-81.0); PLATELET COUNT (AUTO) 184 /CMM (150-450); WHITE BLOOD COUNT (AUTO) 9.8 K/uL (4.3-11.0)
[2020-04-23 05:43] LABS: CALCIUM, SERUM 8.3 mg/dL (8.5-10.1); CREATININE 1.1 mg/dL (0.6-1.3); MAGNESIUM 2.2 mg/dL (1.8-2.4); PHOSPHORUS 3.6 mg/dL (2.5-4.9); POTASSIUM 4.5 mmol/L (3.5-5.1)
--- NOTE | 2020-04-23 06:54 | NUR ---
PLASTICS SPREADING MACHINE OPERATOR CLOSING NOTE: PATIENT REMAINS IN ROOM IN NO SIGNS OF RESPIRATORY DISTRESS; STILL ON VENT SETTING PER ORDERED. SAFETY MEASURES IMPLEMENTED, BED IN LOWEST POSITION, LOCKED, SIDE RAILS UP, CALL LIGHT WITHIN REACH. ALL NEEDS AND ORDERS ADDRESSED DURING THE SHIFT. IV ACCESS MAINTAINED INTACT, SECURED AND FLUSHING WELL. ALL DUE MEDS GIVEN ORDERED & SCHEDULED ; PATIENT TOLERATED WELL. PATIENT KEPT CLEAN AND COMFORTABLE WITHIN THE SHIFT. ENDORSED TO INCOMING SHIFT RN FOR CONTINUITY OF CARE.
[2020-04-23] MEDS: PROSOURCE / PROSTAT (PYXIS) 30 ML UDC GT SCH ×3 (09:08→17:39)
[2020-04-23] MEDS: FLUCONAZOLE (100 MG) 100 MG TABLET PO SCH (09:08)
[2020-04-23] MEDS: APIXABAN 2.5 MG TABLET PO SCH ×2 (09:09→20:54)
[2020-04-23] MEDS: CLOTRIMAZOLE 1% 15 GM TUBE TP SCH ×2 (09:10→17:39)
[2020-04-23] MEDS: ASPIRIN 325 MG TABLET PO SCH (09:17)
[2020-04-23] MEDS: FAMOTIDINE/PF INJ 20 MG/2 ML VIAL IV SCH ×2 (09:17→21:08)
[2020-04-23] MEDS: CEFEPIME 2 GM in IV D5W 100 ML IV SCH ×2 (09:21→21:12)
[2020-04-23] MEDS: NOREPINEPHRINE 8 MG in IV NS 0.9% 242 ML IV PRN (09:26)
[2020-04-23] MEDS: FENTANYL CITRAT IV 2,500 MCG in IV NS 0.9% 200 ML IV PRN (10:56)
[2020-04-23 11:46] LABS: ABG BASE EXCESS -3.7 mmol/L; ABG PCO2 42.9 mmHg (35.0-45.0); ABG PO2 66.9 mmHg (75.0-100.0); AaDO2 386.1 mmHg; COHb 0.6 % (0.5-1.5); MetHb 0.1 % (0.0-1.5); O2Hb 92.3 % (94.0-97.0); PEEP,BG 12 cm H2O; SITE, ABG Left Radial; VT, ABG 400 mL
[2020-04-23] MEDS: MIDAZOLAM HCL 100 MG in IV NS 0.9% 80 ML IV PRN (13:37)
--- NOTE | 2020-04-23 19:31 | NUR ---
PT REC'D ORALLY INTUBATED VIA ETT 7.0 SECURED @ 22 CM [facility] WITH THE SETTINGS OF AC 24, 400,70%,PEEP 12. ET TUBE SECURED AND PATENT. BILATERAL CHEST RISE NOTED. SX DONE . ALARMS ARE SET AND AUDIBLE. VENT PLUGGED INTO RED OUTLET. AMBU BAG@ BEDSIDE. WILL CONTINUE TO MONITOR T/O THE SHIFT.
[2020-04-23] MEDS: INSULIN GLARGINE, 100 UNIT/ML CARTRIDGE SQ SCH (23:27)
[2020-04-24] VITALS (88 sets, daily range): BP systolic 76–192; BP diastolic 36–112
[2020-04-24] MEDS ORDERED: NOREPINEPHRINE 8MG/250ML RTU 250 ML IV ONE (03:14)
[2020-04-24] MEDS: NOREPINEPHRINE 8 MG in IV NS 0.9% 242 ML IV PRN ×2 (03:40→11:18)
[2020-04-24] MEDS: FENTANYL CITRAT IV 2,500 MCG in IV NS 0.9% 200 ML IV PRN ×2 (05:11→18:43)
[2020-04-24 05:25] LABS: BASOPHILS % (AUTO) 0.5 % (0.0-2.0); EOSINOPHILS % (AUTO) 0.9 % (0.0-6.0); HEMATOCRIT 33 % (33-45); HEMOGLOBIN 10.3 g/dL (11.5-14.8); LYMPHOCYTES # (AUTO) 0.9 /CMM (0.8-4.8); LYMPHOCYTES % (AUTO) 11.4 % (20.0-44.0); MEAN CORPUSCULAR HGB CONC 31 g/dl (31.0-36.0); MEAN CORPUSCULAR VOLUME 98 fL (82-100); MONOCYTES # (AUTO) 0.5 /CMM (0.1-1.30); MONOCYTES % (AUTO) 6.2 % (2.0-12.0); NEUTROPHILS # (AUTO) 6.5 /CMM (1.8-8.9); PLATELET COUNT (AUTO) 208 /CMM (150-450); RED BLOOD CELL COUNT(AUTO) 3.39 MIL/uL (4.0-5.2)
[2020-04-24 05:53] LABS: CALCIUM, SERUM 7.9 mg/dL (8.5-10.1); CREATININE 1.3 mg/dL (0.6-1.3); MAGNESIUM 2.3 mg/dL (1.8-2.4); PHOSPHORUS 3.9 mg/dL (2.5-4.9); POTASSIUM 4.3 mmol/L (3.5-5.1)
[2020-04-24] MEDS: HYDROCORTISONE SOD SUCCINATE 100 MG/2 ML VIAL IV SCH ×3 (06:19→20:35)
[2020-04-24] MEDS: BLOOD SUGAR DIAGNOSTIC 1 EACH STRIP IN SCH ×4 (06:20→22:11)
[2020-04-24] MEDS: INSULIN REGULAR, HUMAN 100 UNIT/ML 3 ML VIAL SQ PRN ×4 (06:25→22:10)
--- NOTE | 2020-04-24 08:00 | NUR ---
RN NOTES RN NOTE RECEIVED PATIENT IN THE BED, SEDATED. PATIENT IN NO S/SX OF ACUTE DISTRESS AT THIS TIME. PATIENT'S BREATHING IS EVEN AND UNLABORED. TOLERATING SETTING WELL, SATURATION CURRENTLY AT 95%. PATIENT IS SR-SB ON BEDSIDE MONITOR, HR IS 48. NG TUBE @ GLUCERNA 15CC/HR, PLACEMENT AND RESIDUAL CHECKED.NOTED IGOR PICC LINE, PATENT AND FLUSHING WELL, WITH FENTANYL DRIP INFUSING AT 2 MCG, VERSED AT 4 MG/HR, AND NOREPINEPHRINE AT 0.1 MCG/KG/HR, NO INFECTION NOTED AT IV SITE. LOBATO CATH DRAINING GRAVITY YELLOW OUTPUT. EDEMA BLE, AND UPPER ARMS, KEEP HOB ELEVATED FOR ASPIRATION PRECAUTION, ASSIST TURN AND REPOSTION Q 2 HR. SAFETY MEASURES IMPLEMENTED PER PROTOCOL. PATIENT BED ALARM IS ON. BED IS LOCKED, IN LOWEST POSITION AND SIDE RAILS UP. CALL LIGHT WITHIN REACH OF THE PATIENT. WILL CONTINUE TO MONITOR.
[2020-04-24] MEDS: CEFEPIME 2 GM in IV D5W 100 ML IV SCH ×2 (09:42→20:35)
[2020-04-24] MEDS: ASPIRIN 325 MG TABLET PO SCH (09:48)
[2020-04-24] MEDS: FAMOTIDINE/PF INJ 20 MG/2 ML VIAL IV SCH (09:48)
[2020-04-24] MEDS: FLUCONAZOLE (100 MG) 100 MG TABLET PO SCH (09:48)
[2020-04-24] MEDS: CLOTRIMAZOLE 1% 15 GM TUBE TP SCH ×2 (09:49→16:29)
[2020-04-24] MEDS: PROSOURCE / PROSTAT (PYXIS) 30 ML UDC GT SCH ×3 (09:49→16:29)
[2020-04-24] MEDS: APIXABAN 2.5 MG TABLET PO SCH ×2 (10:00→20:39)
[2020-04-24] MEDS: MIDAZOLAM HCL 100 MG in IV NS 0.9% 80 ML IV PRN (12:44)
--- NOTE | 2020-04-24 13:00 | NUR ---
RN NOTES BS-244MG/DL, COVERAGE GIVEN, PATIENT SEDATED, NO ACUTE RESPIRATORY DISTRESS.
--- NOTE | 2020-04-24 18:36 | NUR ---
RN NOTES AM CARE DONE, SUCTION, MOUTH CARE DONE, BS-213 MG/DL COVERAGE GIVEN, PATIENT SEDATED SEDATED. PATIENT IN NO S/SX OF ACUTE DISTRESS AT THIS TIME. SATURATION CURRENTLY AT 88% . NG TUBE @ GLUCERNA 15CC/HR, PLACEMENT AND RESIDUAL CHECKED.NOTED IGOR PICC LINE, PATENT AND FLUSHING WELL, WITH FENTANYL DRIP INFUSING AT 2 MMG/ML VERSED AT 4 MG/HR, AND NOREPINEPHRINE AT 0.06 MCG/KG/HR, NO INFECTION NOTED AT IV SITE. LOBATO CATH DRAINING GRAVITY YELLOW OUTPUT 400ML. EDEMA BLE, AND UPPER ARMS, KEEP HOB ELEVATED FOR ASPIRATION PRECAUTION, ASSIST TURN AND REPOSTION Q 2 HR.CALL LIGHT WITHIN REACH OF THE PATIENT. ENDORSED ONCOMING NURSE FOLLOW PLAN OF CARE.
[2020-04-24] MEDS: INSULIN GLARGINE, 100 UNIT/ML CARTRIDGE SQ SCH (22:07)
[2020-04-25] VITALS (83 sets, daily range): BP systolic 95–133; BP diastolic 29–79
[2020-04-25] MEDS ORDERED: NOREPINEPHRINE 8MG/250ML RTU 250 ML IV ONE (03:39)
[2020-04-25] MEDS: NOREPINEPHRINE 8 MG in IV NS 0.9% 242 ML IV PRN (04:03)
--- NOTE | 2020-04-25 04:28 | NUR ---
RN notes Received patient in bed, sedated with no distress noted. Breathing even and unlabored. Vent setting well tolerated. No significant change of condition. FiO2 decreased to 90%, tolerating well. On Fentanyl (2mc) and Versed drip (4mcg), No physical manifestation of pain or discomfort. On Levo drip at 2.2 mcg, no adverse effect noted. Vital signs within normal level. Suctioned moderate amount of semi loose yellowish thick secretion. Feeding well tolerated, increased to 30 ml/hr, no residual. Abdomen soft and non tender. Arias Cath in place draining clear yellow with no foul odor urine. Kept clean and dry. Will endorse to next shift for continuity of care.
[2020-04-25 06:15] LABS: BASOPHILS % (AUTO) 0.4 % (0.0-2.0); EOSINOPHILS % (AUTO) 0.9 % (0.0-6.0); HEMATOCRIT 28 % (33-45); HEMOGLOBIN 8.7 g/dL (11.5-14.8); LYMPHOCYTES # (AUTO) 0.8 /CMM (0.8-4.8); LYMPHOCYTES % (AUTO) 12.5 % (20.0-44.0); MEAN CORPUSCULAR HGB CONC 31 g/dl (31.0-36.0); MEAN CORPUSCULAR VOLUME 99 fL (82-100); MONOCYTES # (AUTO) 0.3 /CMM (0.1-1.30); MONOCYTES % (AUTO) 5.3 % (2.0-12.0); NEUTROPHILS # (AUTO) 4.9 /CMM (1.8-8.9); NEUTROPHILS % (AUTO) 80.9 % (43.0-81.0); PLATELET COUNT (AUTO) 91 /CMM (150-450); RED BLOOD CELL COUNT(AUTO) 2.84 MIL/uL (4.0-5.2); WHITE BLOOD COUNT (AUTO) 6.1 K/uL (4.3-11.0)
[2020-04-25 06:28] LABS: CALCIUM, SERUM 7.7 mg/dL (8.5-10.1); CARBON DIOXIDE 22 mmol/L (21-32); CHLORIDE 106 mmol/L (98-107); CREATININE 1.4 mg/dL (0.6-1.3); GLUCOSE 163 mg/dL (74-106); MAGNESIUM 2.1 mg/dL (1.8-2.4); PHOSPHORUS 3.4 mg/dL (2.5-4.9); SODIUM SERUM 139 mmol/L (136-145); UREA NITROGEN, BLOOD 52 mg/dL (7-18)
[2020-04-25] MEDS: HYDROCORTISONE SOD SUCCINATE 100 MG/2 ML VIAL IV SCH ×4 (06:47→21:28)
[2020-04-25] MEDS: BLOOD SUGAR DIAGNOSTIC 1 EACH STRIP IN SCH ×4 (06:48→23:40)
[2020-04-25] MEDS: INSULIN REGULAR, HUMAN 100 UNIT/ML 3 ML VIAL SQ PRN ×4 (06:48→23:42)
--- NOTE | 2020-04-25 08:00 | NUR ---
rn notes patient sedated, tolerating EET SETTING WELL, NO ACUTE RESPIRATORY DISTRESS, RESIDUAL CHECKED 25 ML, AND PLACEMENT. INFUSING FENTANYL 2 MG, VERSED 4 MG , AND NEOSYNEPHYRINE 0.05 MCG/KG/HR INTACT ON RIGHT PICC LINE . ASSIST TURN A D REPOSTION Q 2 HR, HOB ELEVATED, LOBATO DRAINING BY GRAVITY. WILL MONITORING.
[2020-04-25] MEDS: PROSOURCE / PROSTAT (PYXIS) 30 ML UDC GT SCH ×3 (08:33→17:10)
[2020-04-25] MEDS: ASPIRIN 325 MG TABLET PO SCH (08:33)
[2020-04-25] MEDS: FAMOTIDINE (20 MG) 20 MG TABLET GT SCH (08:33)
[2020-04-25] MEDS: CLOTRIMAZOLE 1% 15 GM TUBE TP SCH ×2 (08:34→17:09)
[2020-04-25] MEDS: APIXABAN 2.5 MG TABLET PO SCH ×2 (08:34→21:00)
--- NOTE | 2020-04-25 08:34 | NUR ---
RN NOTES HOLD VERA DEVINE MD ORDER
--- NOTE | 2020-04-25 08:45 | NUR ---
RN NOTES PER Dr ALCARAZ INCREASE GLUCERNA 1.2 TO 30 ML/HR, AND MONITOR RESIDUAL.
[2020-04-25 09:58] LABS: BAND % (MANUAL) 3 % (0.0-5.0); LYMPHOCYTES % (MANUAL) 10 % (16-48); MONOCYTES % (MANUAL) 9 % (0-11.0); MYELOCYTES % 1 % (0-0); NEUTROPHILS % (MANUAL) 77 (42-76)
[2020-04-25] MEDS: FENTANYL CITRAT IV 2,500 MCG in IV NS 0.9% 200 ML IV PRN (10:00)
--- NOTE | 2020-04-25 11:30 | NUR ---
RT PER DR ALCARAZ FIO2 AND PEEP INCREASED TO 100% + PEEP 15 Addendum: 04/25/20 at 1741 by BETHANIE JACKSON RT Amended: Links added.
[2020-04-25] MEDS: MIDAZOLAM HCL 100 MG in IV NS 0.9% 80 ML IV PRN (13:14)
--- NOTE | 2020-04-25 13:24 | NUR ---
rn notes patient sedated infusing versed 4mg, and fentanyl 2 mg , mouth care done, suction , flashed ng with 400 ml/water, bs-171 mg/dl coverage given.
--- NOTE | 2020-04-25 18:38 | NUR ---
rn notes PATIENT SB -50 HR, SUCTION, PM MEDICATION ADMINISTERED, BS-199 MG/DL COVERAGE GIVEN, ASSIST TURN AND REPOSTION Q2 HR. INFUSING NEOSYNEPHRINE 00.5 MCG/KG/HR, VERCED 4MG, AND FENTANYL 2 MG/ML, , RUNNING GLUCERNA 30 CC/HR INTACT. HOB ELEVATED, LOBATO DRAINING BY GRAVITY. ASSIST TURN AND REPOSTION Q 2 HR. ENDORSED ONCOMING NURSE FOLLOW PLAN OF CARE.
--- NOTE | 2020-04-25 19:00 | NUR ---
EMULSION OPERATOR NOTE RECEIVED PATIENT OBTUNDED ON MECHANICAL VENT SETTING ON ETT10/28 AC 24 TV400 FIO2 1005 PEEP 15 O2:97% HR:49-50, ON NOREPI 0.05 MCG/KG/MIN MIDAZOLAM 4ML, FENTANYL 16.7 ML.ON LEFT NG TUBE FEEDING GLUCERNA 1.2 30CC/HR CHECKED PLACEMENT IN PLACE ON 60CC RESIDUAL ON LOBATO CATHETER URINE DRAINING YELLOW AND CLEAR,ON FLEXISEAL BILATERAL UPPER EXTREMITIES EDEMA,IV SITE ON RIGHT UPPER ARM PICC LINE INTACT PATENT SAFETY MEASURE IMPLEMENT CONTINUE TO MONITOR.
[2020-04-25] MEDS: INSULIN GLARGINE, 100 UNIT/ML CARTRIDGE SQ SCH (22:24)
[2020-04-26] VITALS (86 sets, daily range): BP systolic 92–124; BP diastolic 44–62
[2020-04-26] MEDS: FENTANYL CITRAT IV 2,500 MCG in IV NS 0.9% 200 ML IV PRN ×3 (00:18→23:35)
[2020-04-26] MEDS: HYDROCORTISONE SOD SUCCINATE 100 MG/2 ML VIAL IV SCH ×3 (04:05→21:30)
[2020-04-26 04:23] LABS: BASOPHILS % (AUTO) 0.2 % (0.0-2.0); EOSINOPHILS % (AUTO) 0.5 % (0.0-6.0); HEMATOCRIT 30 % (33-45); HEMOGLOBIN 9.2 g/dL (11.5-14.8); LYMPHOCYTES # (AUTO) 0.7 /CMM (0.8-4.8); LYMPHOCYTES % (AUTO) 9.9 % (20.0-44.0); MEAN CORPUSCULAR HGB CONC 31 g/dl (31.0-36.0); MEAN CORPUSCULAR VOLUME 98 fL (82-100); MONOCYTES # (AUTO) 0.3 /CMM (0.1-1.30); MONOCYTES % (AUTO) 4.3 % (2.0-12.0); NEUTROPHILS # (AUTO) 6.1 /CMM (1.8-8.9); NEUTROPHILS % (AUTO) 85.1 % (43.0-81.0); PLATELET COUNT (AUTO) 143 /CMM (150-450); RED BLOOD CELL COUNT(AUTO) 3.01 MIL/uL (4.0-5.2); WHITE BLOOD COUNT (AUTO) 7.1 K/uL (4.3-11.0)
[2020-04-26 04:36] LABS: CALCIUM, SERUM 8.1 mg/dL (8.5-10.1); CARBON DIOXIDE 23 mmol/L (21-32); CHLORIDE 103 mmol/L (98-107); CREATININE 1.9 mg/dL (0.6-1.3); GLUCOSE 189 mg/dL (74-106); PHOSPHORUS 4.3 mg/dL (2.5-4.9); POTASSIUM 4.3 mmol/L (3.5-5.1); SODIUM SERUM 137 mmol/L (136-145); UREA NITROGEN, BLOOD 67 mg/dL (7-18)
[2020-04-26 05:32] LABS: ABG BASE EXCESS -8.2 mmol/L; ABG OXYGEN SATURATION 96.9 % (92.0-98.5); ABG PCO2 45.5 mmHg (35.0-45.0); ABG PH 7.235 (7.350-7.450); ABG PO2 93.9 mmHg (75.0-100.0); AaDO2 573.6 mmHg; COHb 0.5 % (0.5-1.5); MetHb 0.2 % (0.0-1.5); O2Hb 96.2 % (94.0-97.0); PEEP,BG 15 cm H2O; SITE, ABG Right Radial; VT, ABG 400 mL
[2020-04-26] MEDS: BLOOD SUGAR DIAGNOSTIC 1 EACH STRIP IN SCH ×4 (06:11→23:02)
[2020-04-26] MEDS: INSULIN REGULAR, HUMAN 100 UNIT/ML 3 ML VIAL SQ PRN ×4 (06:25→23:03)
--- NOTE | 2020-04-26 06:56 | NUR ---
AUDITOR SUPERVISOR NOTE PATIENT REMAINS ON SEDATED ON MECHANICAL VENT SETTING 10/28 AC24 TV 400 FIO2:1005 PEEP 15 ON NOREPI 0.05MCG/KG/MIN AND FENTANYL 2MCG/KG/MIN AND VERSED 4ML/HR ON GLUCERNA 1.2 NG TUBE 30C/HR ON LOBATO CATHETER,URINE DRAINING YELLOW AND CLEAR BY GRAVITY ALL DUE MEDS GIVEN MD ORDERED KEPT CLEAN AND DRY ALL THE TIME,HEAD OF BED ELEVATED ALL THE TIME,ENDORSE NEXT COMING SHIFT FOR CONTINUATION OF CARE.
[2020-04-26] MEDS: FAMOTIDINE (20 MG) 20 MG TABLET GT SCH (08:13)
[2020-04-26] MEDS: ASPIRIN 325 MG TABLET PO SCH (08:13)
[2020-04-26] MEDS: PROSOURCE / PROSTAT (PYXIS) 30 ML UDC GT SCH ×3 (08:14→16:02)
[2020-04-26] MEDS: CLOTRIMAZOLE 1% 15 GM TUBE TP SCH ×2 (08:15→16:03)
[2020-04-26] MEDS: APIXABAN 2.5 MG TABLET PO SCH ×2 (08:15→21:32)
[2020-04-26] MEDS: NOREPINEPHRINE 8 MG in IV NS 0.9% 242 ML IV PRN (09:01)
[2020-04-26] MEDS: MIDAZOLAM HCL 100 MG in IV NS 0.9% 80 ML IV PRN (13:47)
[2020-04-26] MEDS: INSULIN GLARGINE, 100 UNIT/ML CARTRIDGE SQ SCH (23:01)
[2020-04-27] VITALS (96 sets, daily range): BP systolic 56–168; BP diastolic 33–87
[2020-04-27] MEDS: GLUCERNA 1.2 1,000 ML BOTTLE NG PRN (01:16)
[2020-04-27 03:15] LABS: BASOPHILS % (AUTO) 0.4 % (0.0-2.0); EOSINOPHILS % (AUTO) 0.6 % (0.0-6.0); HEMATOCRIT 30 % (33-45); HEMOGLOBIN 9.1 g/dL (11.5-14.8); LYMPHOCYTES # (AUTO) 0.6 /CMM (0.8-4.8); LYMPHOCYTES % (AUTO) 8.5 % (20.0-44.0); MEAN CORPUSCULAR HGB CONC 31 g/dl (31.0-36.0); MEAN CORPUSCULAR VOLUME 99 fL (82-100); MONOCYTES # (AUTO) 0.3 /CMM (0.1-1.30); MONOCYTES % (AUTO) 5.2 % (2.0-12.0); NEUTROPHILS # (AUTO) 5.7 /CMM (1.8-8.9); NEUTROPHILS % (AUTO) 85.3 % (43.0-81.0); PLATELET COUNT (AUTO) 159 /CMM (150-450); WHITE BLOOD COUNT (AUTO) 6.6 K/uL (4.3-11.0)
[2020-04-27 03:30] LABS: CALCIUM, SERUM 7.9 mg/dL (8.5-10.1); CARBON DIOXIDE 21 mmol/L (21-32); CHLORIDE 103 mmol/L (98-107); CREATININE 2.2 mg/dL (0.6-1.3); GLUCOSE 245 mg/dL (74-106); POTASSIUM 4.7 mmol/L (3.5-5.1); SODIUM SERUM 134 mmol/L (136-145); UREA NITROGEN, BLOOD 78 mg/dL (7-18)
[2020-04-27] MEDS: HYDROCORTISONE SOD SUCCINATE 100 MG/2 ML VIAL IV SCH ×3 (05:49→21:22)
[2020-04-27] MEDS: BLOOD SUGAR DIAGNOSTIC 1 EACH STRIP IN SCH ×3 (05:49→17:30)
[2020-04-27] MEDS: INSULIN REGULAR, HUMAN 100 UNIT/ML 3 ML VIAL SQ PRN ×3 (06:00→17:55)
[2020-04-27] MEDS: ASPIRIN 325 MG TABLET PO SCH (09:09)
[2020-04-27] MEDS: PROSOURCE / PROSTAT (PYXIS) 30 ML UDC GT SCH ×3 (09:10→16:03)
[2020-04-27] MEDS: FAMOTIDINE (20 MG) 20 MG TABLET GT SCH (09:10)
[2020-04-27] MEDS: CLOTRIMAZOLE 1% 15 GM TUBE TP SCH ×2 (09:11→16:04)
[2020-04-27] MEDS: APIXABAN 2.5 MG TABLET PO SCH ×2 (09:24→21:23)
[2020-04-27] MEDS: DOPamine 400 MG in IV D5W 250 ML IV PRN (09:50)
[2020-04-27] MEDS: FENTANYL CITRAT IV 2,500 MCG in IV NS 0.9% 200 ML IV PRN ×2 (10:21→20:46)
[2020-04-27] MEDS: MIDAZOLAM HCL 100 MG in IV NS 0.9% 80 ML IV PRN (10:21)
--- NOTE | 2020-04-27 19:25 | NUR ---
RN ADMISSIONS OPENING NOTES: Rec'd pt in bed, intubated 7/22cm at the lip on mechanical ventilation. Tolerating settings well. SB on tele monitor. NGT in place w/ Glucerna infusing at 30ml/hr. IGOR PICC line patent and infusing Fentanyl at 3mcg, Versed at 5ml/hr, Dopamine at 3mcg/kg/min. Flexiseal in place. Arias catheter in place draining urine via gravity. Safety measures in place. Will continue to monitor.
[2020-04-27] MEDS: INSULIN GLARGINE, 100 UNIT/ML CARTRIDGE SQ SCH (21:22)
[2020-04-28] VITALS (89 sets, daily range): BP systolic 72–120; BP diastolic 37–66
[2020-04-28] MEDS: BLOOD SUGAR DIAGNOSTIC 1 EACH STRIP IN SCH ×4 (00:12→17:58)
[2020-04-28] MEDS: INSULIN REGULAR, HUMAN 100 UNIT/ML 3 ML VIAL SQ PRN ×4 (00:14→18:02)
[2020-04-28] MEDS: MIDAZOLAM HCL 100 MG in IV NS 0.9% 80 ML IV PRN ×2 (02:00→22:18)
[2020-04-28] MEDS ORDERED: DOPamine 400MG/D5W 250ML RTU 250 ML ONE (04:43)
[2020-04-28] MEDS: DOPamine 400 MG in IV D5W 250 ML IV PRN (04:53)
[2020-04-28] MEDS: HYDROCORTISONE SOD SUCCINATE 100 MG/2 ML VIAL IV SCH ×3 (05:15→21:00)
[2020-04-28] MEDS: FENTANYL CITRAT IV 2,500 MCG in IV NS 0.9% 200 ML IV PRN ×2 (06:16→17:38)
[2020-04-28] MEDS: ASPIRIN 325 MG TABLET PO SCH (08:11)
[2020-04-28] MEDS: FAMOTIDINE (20 MG) 20 MG TABLET GT SCH (08:12)
[2020-04-28] MEDS: APIXABAN 2.5 MG TABLET PO SCH ×2 (08:14→21:01)
[2020-04-28] MEDS: CLOTRIMAZOLE 1% 15 GM TUBE TP SCH ×2 (08:15→16:12)
[2020-04-28] MEDS: PROSOURCE / PROSTAT (PYXIS) 30 ML UDC GT SCH ×3 (08:16→16:11)
--- NOTE | 2020-04-28 08:40 | NUR ---
WOUND CARE FOLLOW UP: REVIEWED CHART, NURSING DOCUMENTATION AND PHOTO WHICH INDICATES OPEN SKIN TO LEFT BUTTOCK. LEAKAGE AROUND RECTAL TUBE NOTED BY NURSING STAFF. RECOMMENDATIONS MADE FOR SKIN PROTECTION AND CARE. DISCUSSED WITH NURSING STAFF. PT IS ON [place] ISOFLEX LOW AIRLOSS BED. MD IN AGREEMENT WITH PLAN OF CARE.
[2020-04-28 11:10] LABS: BASOPHILS % (AUTO) 0.2 % (0.0-2.0); EOSINOPHILS % (AUTO) 5.9 % (0.0-6.0); HEMATOCRIT 28 % (33-45); HEMOGLOBIN 8.7 g/dL (11.5-14.8); LYMPHOCYTES # (AUTO) 0.3 /CMM (0.8-4.8); LYMPHOCYTES % (AUTO) 7.2 % (20.0-44.0); MEAN CORPUSCULAR HGB CONC 31 g/dl (31.0-36.0); MEAN CORPUSCULAR VOLUME 99 fL (82-100); MONOCYTES # (AUTO) 0.1 /CMM (0.1-1.30); NEUTROPHILS % (AUTO) 83.7 % (43.0-81.0); PLATELET COUNT (AUTO) 122 /CMM (150-450); WHITE BLOOD COUNT (AUTO) 4.8 K/uL (4.3-11.0)
[2020-04-28 11:26] LABS: ALANINE AMINOTRANSFERASE 21 U/L (12-78); ALBUMIN 1.6 g/dL (3.4-5.0); ALKALINE PHOSPHATASE 78 U/L (46-116); ASPARTATE AMINOTRANSFERASE 19 U/L (15-37); BILIRUBIN,TOTAL 0.3 mg/dL (0.2-1.0); CALCIUM, SERUM 7.7 mg/dL (8.5-10.1); CARBON DIOXIDE 20 mmol/L (21-32); CHLORIDE 102 mmol/L (98-107); CREATININE 2.5 mg/dL (0.6-1.3); GLUCOSE 185 mg/dL (74-106); MAGNESIUM 2.4 mg/dL (1.8-2.4); PHOSPHORUS 4.9 mg/dL (2.5-4.9); POTASSIUM 4.1 mmol/L (3.5-5.1); SODIUM SERUM 135 mmol/L (136-145); TOTAL PROTEIN, SERUM 5.6 g/dL (6.4-8.2)
[2020-04-28 11:31] LABS: UREA NITROGEN, BLOOD 90 mg/dL (7-18)
[2020-04-28] MEDS: GLUCERNA 1.2 1,000 ML BOTTLE NG PRN (12:08)
[2020-04-28 12:17] LABS: BAND % (MANUAL) 1 % (0.0-5.0); EOSINOPHILS % (MANUAL) 5 % (0-4); LYMPHOCYTES % (MANUAL) 7 % (16-48); MONOCYTES % (MANUAL) 4 % (0-11.0); NEUTROPHILS % (MANUAL) 83 (42-76)
--- NOTE | 2020-04-28 15:23 | NUR ---
Social Service phone call: SW attempt to call the pt's niece (Isatu Simon [phone]) to verify additional support system for the patient at 1525pm. SW unable to speak with the niece (Simon Isatu [phone]) and left a voicemail to call nephrology social worker office ([phone]). Plan: SW will follow up tomorrow if the niece (Isatu Simon [phone]) has not contacted nephrology social worker.
--- NOTE | 2020-04-28 16:12 | NUR ---
Aluminum Pourer phone call: BASILIA spoke with Isatu Simon ([phone]) at 410pm to verify additional information regarding the pt's support system. Isatu ([phone]) gave the nephew dai Davies ([phone]) as the point of contact. BASILIA spoke to the nephew dai Davies ([phone]) to verify if the patient has a conservator or POA (power of trade mark attorney). The nephew will fax the proper documentation to services host office at fax number ([phone]). BASILIA also gave the social service director office ([phone]) to call for any questions or concern. Plan: BASILIA spoke to the nephew dai Davies ([phone]) to verify a conservator or power of trade mark attorney. The nephew ,Micheal Simon, ([phone]) will fax the proper documents to social service director fax ([phone]).
[2020-04-28] MEDS: INSULIN GLARGINE, 100 UNIT/ML CARTRIDGE SQ SCH (22:00)
[2020-04-29] VITALS (96 sets, daily range): BP systolic 54–141; BP diastolic 28–77
[2020-04-29] MEDS: BLOOD SUGAR DIAGNOSTIC 1 EACH STRIP IN SCH ×5 (00:59→23:07)
[2020-04-29] MEDS: INSULIN REGULAR, HUMAN 100 UNIT/ML 3 ML VIAL SQ PRN ×5 (01:25→23:14)
[2020-04-29 03:49] LABS: BASOPHILS % (AUTO) 0.1 % (0.0-2.0); EOSINOPHILS % (AUTO) 0.4 % (0.0-6.0); HEMATOCRIT 28 % (33-45); HEMOGLOBIN 8.6 g/dL (11.5-14.8); LYMPHOCYTES # (AUTO) 0.2 /CMM (0.8-4.8); LYMPHOCYTES % (AUTO) 3.5 % (20.0-44.0); MEAN CORPUSCULAR HGB CONC 31 g/dl (31.0-36.0); MEAN CORPUSCULAR VOLUME 99 fL (82-100); MONOCYTES # (AUTO) 0.1 /CMM (0.1-1.30); MONOCYTES % (AUTO) 1.6 % (2.0-12.0); NEUTROPHILS # (AUTO) 4.4 /CMM (1.8-8.9); NEUTROPHILS % (AUTO) 94.4 % (43.0-81.0); PLATELET COUNT (AUTO) 115 /CMM (150-450); RED BLOOD CELL COUNT(AUTO) 2.79 MIL/uL (4.0-5.2); WHITE BLOOD COUNT (AUTO) 4.7 K/uL (4.3-11.0)
[2020-04-29] MEDS: FENTANYL CITRAT IV 2,500 MCG in IV NS 0.9% 200 ML IV PRN ×3 (03:54→22:17)
[2020-04-29 04:11] LABS: ALANINE AMINOTRANSFERASE 18 U/L (12-78); ALBUMIN 1.6 g/dL (3.4-5.0); ALKALINE PHOSPHATASE 73 U/L (46-116); ASPARTATE AMINOTRANSFERASE 20 U/L (15-37); BILIRUBIN,TOTAL 0.3 mg/dL (0.2-1.0); CALCIUM, SERUM 7.7 mg/dL (8.5-10.1); CARBON DIOXIDE 21 mmol/L (21-32); CHLORIDE 102 mmol/L (98-107); CREATININE 2.7 mg/dL (0.6-1.3); GLUCOSE 190 mg/dL (74-106); MAGNESIUM 2.4 mg/dL (1.8-2.4); PHOSPHORUS 5.6 mg/dL (2.5-4.9); POTASSIUM 4.9 mmol/L (3.5-5.1); SODIUM SERUM 132 mmol/L (136-145); TOTAL PROTEIN, SERUM 5.8 g/dL (6.4-8.2)
[2020-04-29 04:16] LABS: UREA NITROGEN, BLOOD 97 mg/dL (7-18)
[2020-04-29] MEDS: HYDROCORTISONE SOD SUCCINATE 100 MG/2 ML VIAL IV SCH ×3 (05:14→20:30)
[2020-04-29] MEDS: DOPamine 400 MG in IV D5W 250 ML IV PRN (05:16)
[2020-04-29 07:31] LABS: ABG BASE EXCESS -12.2 mmol/L; ABG PCO2 53.1 mmHg (35.0-45.0); ABG PH 7.117 (7.350-7.450); ABG PO2 85.7 mmHg (75.0-100.0); AaDO2 574.2 mmHg; COHb 0.9 % (0.5-1.5); MetHb 0.2 % (0.0-1.5); PEEP,BG 12 cm H2O; SITE, ABG Right Radial; VT, ABG 400 mL
--- NOTE | 2020-04-29 08:00 | NUR ---
RN NOTES Recived intubated 7/22cm at the lip on mechanical ventilation. Tolerating settings well. SB on tele monitor. NGT in place w/ Glucerna infusing at 30ml/hr residual was 20cc, also checked placement.. IGOR PICC line patent and infusing Fentanyl at 3mcg, Versed at 5ml/hr, Dopamine at 3mcg/kg/min. Flexiseal in place. Arias catheter in place draining urine via gravity. Safety measures in place. Will continue to monitor.
[2020-04-29] MEDS: ASPIRIN 325 MG TABLET PO SCH (08:05)
[2020-04-29] MEDS: FAMOTIDINE (20 MG) 20 MG TABLET GT SCH (08:05)
[2020-04-29] MEDS: PROSOURCE / PROSTAT (PYXIS) 30 ML UDC GT SCH ×3 (08:06→17:03)
[2020-04-29] MEDS: CLOTRIMAZOLE 1% 15 GM TUBE TP SCH ×2 (08:06→17:03)
[2020-04-29] MEDS: GLUCERNA 1.2 1,000 ML BOTTLE NG PRN (11:53)
--- NOTE | 2020-04-29 12:00 | NUR ---
rn notes Patient BS check 200 mg/dl with ISS given as ordered. Water flush given 400 cc. Medication administered, patient is sedated at this time. Repositioned Q 2 hours. Continue to monitor and call light with in reach.
[2020-04-29] MEDS: APIXABAN 2.5 MG TABLET PO SCH ×2 (12:14→21:19)
[2020-04-29] MEDS: IV NS 0.9% 250 ML IV PRN (13:42)
--- NOTE | 2020-04-29 14:50 | NUR ---
Social Service Phone Call: SW spoke with the Micheal lala ([phone]) to follow up with the documentations for the conservator or power of defense attorney. Micheal Simon ([phone]) states they are still gathering all proper documentation will fax to the social media marketing analyst office. Plan: SW will wait for the fax sent to the social media marketing analyst office ([phone]) for proper documentations with the conservator or power of defense attorney. BASILIA will follow up tomorrow the nephew, Micheal lala ([phone]).
[2020-04-29] MEDS: MIDAZOLAM HCL 100 MG in IV NS 0.9% 80 ML IV PRN (17:30)
--- NOTE | 2020-04-29 18:56 | NUR ---
rn notes patient abdomen distended, suction, coffee ground amount coming out of during suction, stop feeding. keep hob elevated. folley output get less 350 ml during a shift, infusing fentanil 3mg/ml, varced 5mg, anf dopamin 3 mcg/kg/hr.patient DNR . endorsed oncoming nurse follow giselle.
--- NOTE | 2020-04-29 19:30 | NUR ---
ICU OPENING NOTES RECEIVED SEDATED PATIENT IN NO S/SX OF ACUTE DISTRESS AT THIS TIME. NO SOB NOTED. PATIENT'S BREATHING IS EVEN AND UNLABORED. NO S/SX OF ACUTE DISTRESS AT THIS TIME. NO SOB NOTED. PATIENT'S BREATHING IS EVEN AND UNLABORED. PATIENT ON MECHANICAL VENT; SETTINGS PRESCRIBED; PT TOLERATED WELL. AMBU BAG AT BED SIDE ALARMS SET PER PROTOCOL AND AUDIBLE. VENT PLUGGED IN TO RED OUTLET. NO DISTRESS NOTED. NOTED NGT/OGT IN PLACED. CLAMPED AT THIS TIME. PLACEMENT VERIFIED WITH AUSCULTATION. NO RESIDUAL TAKEN AT THIS TIME. G TUBE FLUSHING AND PATENT; SITE CLEAN DRY AND INTACT; RESIDUAL NOTED 120 CC MIXED CONTENT OF FEEDING AND COFFEE GROUND. WILL INFORM SAEED KEYS, TUBE FEEDING OF GLUCERNA WAS RECEIVED ON HOLD FROM THE AM SHIFT RN. NOTED IV SITE ON R UA PICC LINE;PATENT, INTACT AND FLUSHING WELL; NO S/S OF INFECTION OR INFILTRATION. PATIENT HAS ONGOING DOPAMINE DRIP ; RECEIVED @ DOSE RATE OF 3MCG/KG/MIN , FENTANYL DRIP VIA SUBSTATION MECHANIC @3MCG/KG/MIN AND VERSED DRIP VIA SUBSTATION MECHANIC @5MCG/KG/MIN; MONITORED AND TITRATED PER PROTOCOL. LOBATO CATH IN PLACE, MODERATE URINE OUTPUT NOTED. FLEXISEAL NOTED IN PLACE DRAINING WELL. PATIENT WITH VT PUMP ON SAFETY MEASURES HAVE BEEN PROVIDED AND IMPLEMENTED. PATIENT BED ALARM IS ON. HEAD OF BED ELEVATED. BED IS LOCKED, IN LOWEST POSITION AND SIDE RAILS UP. CALL LIGHT WITHIN REACH OF THE PATIENT. APPLICABLE ISOLATION PRECAUTIONS IN PLACE. WILL CONTINUE TO MONITOR AND REASSESS FOR ANY CHANGES AND WILL CARRY OUT ANY ONGOING AND ACTIVE MD ORDER.
--- NOTE | 2020-04-29 20:08 | NUR ---
RN NOTES COMMUNICATED WITH SAEED KEYS REGARDING THE COFFEE GROUND UPON SUCTION NOTED BY AM RN, ADVISED SAEED KEYS OF THE SAME AND ALSO COFFEE GROUND MED WITH TUBE FEEDING UPON ASPIRATION; RESIDUE AMOUNT MORE THAN 120 CC. H&H NOTED TO BE LOW ( 8.6 & 28)AND PT HAS A DUE ELIQUIS BY 9PM. SAEED KEYS SAID HE WILL ORDER STAT H&H AND IF REMAINS SAME WILL ADMINISTER IF IT GOES BELOW 8 WILL HODL MEDS. HE WILL ORDER H&H NOW. SANTI ESCOBAR MADE AWARE. WILL WAIT FOR THE H&H RESULT AND WILL CARRY OUT ORDERS NECESSARY. WILL CONTINUE TO MONITOR AND ASSESS. Addendum: 04/29/20 at 2113 by ENMA HALL RN RECEIVED H&H RESULT: 8.2 AND 26. WILL ADMINISTER MEDICATIONS PER THE LAST INSTRUCTION OF SAEED KEYS. SANTI ESCOBAR MADE AWARE. WILL CONTINUE TO MONITOR AND ASSESS.
[2020-04-29 20:56] LABS: HEMOGLOBIN 8.2 g/dL (11.5-14.8)
[2020-04-29] MEDS: INSULIN GLARGINE, 100 UNIT/ML CARTRIDGE SQ SCH (23:13)
[2020-04-30] VITALS (95 sets, daily range): BP systolic 67–162; BP diastolic 39–79
--- NOTE | 2020-04-30 00:19 | NUR ---
RN NOTES COMMUNICATED WITH SAEED KEYS TO VERIFY IF EXISTING ORDER TO FLUSH GTUBE WITH 400ML FREE WATER Q4 WILL BE CARRIED OUT THIS TIME PATIENTS SODIUM LEVEL IS LOW AND PT IS HAVING COFFEE GROUND UPON ASPIRATION OF GTUBE CONTENTS. SAEED KEYS SAID HOLD IT FOR NOW. STAINED GLASS INSTALLER MADE AWARE. WILL CONTINUE TO ASSESS AND MONITOR THROUGHOUT THE SHIFT.
--- NOTE | 2020-04-30 03:00 | NUR ---
RN NOTES NO CHANGE IN PATIENT CONDITION AT THIS TIME PATIENT VITALS STABLE, NO SIGNS OF ACUTE RESPIRATORY DISTRESS. FEEDING STILL ON HOLD AT THIS TIME. WILL CONTINUE TO MONITOR AND REASSESS FOR ANY CHANGES THROUGHOUT THE SHIFT.
[2020-04-30] MEDS: HYDROCORTISONE SOD SUCCINATE 100 MG/2 ML VIAL IV SCH ×3 (04:43→21:22)
[2020-04-30] MEDS: BLOOD SUGAR DIAGNOSTIC 1 EACH STRIP IN SCH ×4 (05:37→23:36)
[2020-04-30] MEDS: INSULIN REGULAR, HUMAN 100 UNIT/ML 3 ML VIAL SQ PRN ×4 (05:39→23:37)
[2020-04-30 05:41] LABS: ABG BASE EXCESS -10.8 mmol/L; ABG OXYGEN SATURATION 92.1 % (92.0-98.5); ABG PCO2 41.2 mmHg (35.0-45.0); ABG PH 7.214 (7.350-7.450); ABG PO2 67.6 mmHg (75.0-100.0); AaDO2 604.2 mmHg; COHb 0.3 % (0.5-1.5); MetHb 0.1 % (0.0-1.5); O2Hb 91.7 % (94.0-97.0); PEEP,BG 12 cm H2O; SITE, ABG Right Radial; VT, ABG 450 mL
--- NOTE | 2020-04-30 06:57 | NUR ---
CHILDCARE ATTENDANT CLOSING NOTE: PATIENT REMAINS IN ROOM IN NO SIGNS OF RESPIRATORY DISTRESS; STILL ON VENT SETTING PER ORDERED. SAFETY MEASURES IMPLEMENTED, BED IN LOWEST POSITION, LOCKED, SIDE RAILS UP, CALL LIGHT WITHIN REACH. ALL NEEDS AND ORDERS ADDRESSED DURING THE SHIFT. IV ACCESS MAINTAINED INTACT, SECURED AND FLUSHING WELL. ALL DUE MEDS GIVEN ORDERED & SCHEDULED ; PATIENT TOLERATED WELL.PATIENT'S FEEDING STILL ON HOLD AT THIS TIME. PATIENT KEPT CLEAN AND COMFORTABLE WITHIN THE SHIFT. PATIENT ENDORSED TO INCOMING SHIFT RN WITH STABLE VITAL SIGN AND FOR CONTINUITY OF CARE.
--- NOTE | 2020-04-30 08:00 | NUR ---
rn notes NGT IN PLACED. CLAMPED AT THIS TIME. RESIDUAL 200ML WITH COFFEE GROUND CONTENT. HOLD FEEDING , AND WATER FLASH, PLACEMENT VERIFIED WITH AUSCULTATION. G TUBE FLUSHING AND PATENT. V/S STABLE ON BEDSIDE MONITOR. INCISING DOPAMINE 3 MCG, FENTANYL 2.5MG, AND VERSED 5, INTACT IV FLASHING WELL. KEEP HOB ELEVATED, ASSIST TURN AND REPOSITION Q 2 HR. LOBATO DRAINING LOW OUTPUT. WILL MONITORING.
[2020-04-30] MEDS: APIXABAN 2.5 MG TABLET PO SCH (09:00)
[2020-04-30] MEDS: ASPIRIN 325 MG TABLET PO SCH (09:00)
[2020-04-30] MEDS: FAMOTIDINE (20 MG) 20 MG TABLET GT SCH (09:30)
[2020-04-30] MEDS: FENTANYL CITRAT IV 2,500 MCG in IV NS 0.9% 200 ML IV PRN ×2 (09:30→21:14)
[2020-04-30] MEDS: PROSOURCE / PROSTAT (PYXIS) 30 ML UDC GT SCH ×3 (09:31→17:00)
[2020-04-30] MEDS: CLOTRIMAZOLE 1% 15 GM TUBE TP SCH ×2 (09:31→17:19)
--- NOTE | 2020-04-30 09:42 | NUR ---
RN NOTES NOTIFIED MD KIRK ABOUT RESIDUAL ,AND COFFEE GROUND EMESSI . HELD ASPIRIN, AND ELAQUISE AT THIS TIME, PER MD WILL LOOK LABS, AND PUT MORE ORDERS.
[2020-04-30 10:24] LABS: CALCIUM, SERUM 7.9 mg/dL (8.5-10.1); CARBON DIOXIDE 15 mmol/L (21-32); CHLORIDE 99 mmol/L (98-107); CREATININE 2.8 mg/dL (0.6-1.3); GLUCOSE 179 mg/dL (74-106); POTASSIUM 5.2 mmol/L (3.5-5.1); SODIUM SERUM 128 mmol/L (136-145)
[2020-04-30 10:37] LABS: UREA NITROGEN, BLOOD 109 mg/dL (7-18)
[2020-04-30 12:27] LABS: BASOPHILS % (AUTO) 0.2 % (0.0-2.0); EOSINOPHILS % (AUTO) 0.4 % (0.0-6.0); HEMATOCRIT 24 % (33-45); HEMOGLOBIN 7.4 g/dL (11.5-14.8); LYMPHOCYTES # (AUTO) 0.3 /CMM (0.8-4.8); LYMPHOCYTES % (AUTO) 7.5 % (20.0-44.0); MEAN CORPUSCULAR HGB CONC 31 g/dl (31.0-36.0); MEAN CORPUSCULAR VOLUME 98 fL (82-100); MONOCYTES # (AUTO) 0.1 /CMM (0.1-1.30); MONOCYTES % (AUTO) 2.9 % (2.0-12.0); NEUTROPHILS # (AUTO) 3.4 /CMM (1.8-8.9); PLATELET COUNT (AUTO) 100 /CMM (150-450); WHITE BLOOD COUNT (AUTO) 3.9 K/uL (4.3-11.0)
[2020-04-30] MEDS: MIDAZOLAM HCL 100 MG in IV NS 0.9% 80 ML IV PRN (12:40)
[2020-04-30] MEDS: DOPamine 400 MG in IV D5W 250 ML IV PRN (12:53)
[2020-04-30] MEDS: IV NS 0.9% 250 ML IV PRN (14:52)
[2020-04-30] MEDS: PANTOPRAZOLE 40 MG VIAL IV SCH (17:26)
--- NOTE | 2020-04-30 18:40 | NUR ---
RN NOTES PM CARE DONE, SUCTION, HOLD FEEDING , RESIDUAL 50 ML WITH STILL COFFEE GROUND CONTENT MEDICATION ADMINISTERED PRESCRIBED. ASSIST TURN AND REPOSTION Q 2 HR. ENDORSED ONCOMING NURSE FOLLOW FLIP.
--- NOTE | 2020-04-30 20:09 | NUR ---
AEROSPACE ENGINEER OFFICER ARMAMENT OPENING NOTES: Rec'd pt in bed, intubated 7/22cm at the lip on mechanical ventilation. Tolerating settings well. SB on tele monitor. NGT in place. TF held. IGOR PICC line patent and infusing Fentanyl at 2.5mcg, Versed at 5ml/hr, Dopamine at 2.5mcg/kg/min. Flexiseal in place. Arias catheter in place draining urine via gravity. Safety measures in place. Will continue to monitor.
[2020-04-30] MEDS: INSULIN GLARGINE, 100 UNIT/ML CARTRIDGE SQ SCH (21:44)
[2020-05-01] VITALS (84 sets, daily range): BP systolic 73–154; BP diastolic 33–85
[2020-05-01] MEDS: BLOOD SUGAR DIAGNOSTIC 1 EACH STRIP IN SCH ×4 (05:16→23:53)
[2020-05-01] MEDS: INSULIN REGULAR, HUMAN 100 UNIT/ML 3 ML VIAL SQ PRN ×2 (05:16→23:54)
[2020-05-01] MEDS: HYDROCORTISONE SOD SUCCINATE 100 MG/2 ML VIAL IV SCH ×3 (05:16→21:27)
--- NOTE | 2020-05-01 07:44 | NUR ---
RN OPENING NOTES: RECEIVED PT IN BED, PT IS INTUBATED 7/22cm AT THE LIP ON MECHANICAL VENTILATION ORDERED PER SETTINGS. TOLERATING WELL NO S/S OF SHORTNESS OB BREATH OR RESPIRATORY DISTRESS NOTED. SB ON MONITOR. NGT IN PLACE. IGOR PICC LINE WITH Fentanyl at 2.5mcg ,Versed at 5ml/hr AND Dopamine at 2.5mcg/kg/min. FLEXISEAL IN PLACE . LOBATO CATH IN PLACE DRAINING YELLOW SAFETY MEASUREMENTS ARE IN PLACE. BED IS IN THE LOWEST POSITION, BED LOCKED AND SIDE RAILS ARE UP. WILL CONTINUE TO MONITOR
[2020-05-01] MEDS: PROSOURCE / PROSTAT (PYXIS) 30 ML UDC GT SCH ×3 (08:10→16:16)
[2020-05-01] MEDS: PANTOPRAZOLE 40 MG VIAL IV SCH ×2 (08:10→16:16)
[2020-05-01] MEDS: CLOTRIMAZOLE 1% 15 GM TUBE TP SCH ×2 (08:10→16:17)
[2020-05-01] MEDS: FENTANYL CITRAT IV 2,500 MCG in IV NS 0.9% 200 ML IV PRN ×2 (09:01→21:14)
[2020-05-01] MEDS: MIDAZOLAM HCL 100 MG in IV NS 0.9% 80 ML IV PRN (09:09)
--- NOTE | 2020-05-01 11:35 | NUR ---
RN NOTES TIDAL VOLUME 475 AND FIO2 75%
--- NOTE | 2020-05-01 12:00 | NUR ---
RN NOTES TEM IS 95.8. PUT BARE JOSELYN
[2020-05-01 13:29] LABS: BASOPHILS % (AUTO) 0.3 % (0.0-2.0); EOSINOPHILS % (AUTO) 1.7 % (0.0-6.0); HEMATOCRIT 29 % (33-45); HEMOGLOBIN 8.7 g/dL (11.5-14.8); LYMPHOCYTES # (AUTO) 0.3 /CMM (0.8-4.8); LYMPHOCYTES % (AUTO) 6.9 % (20.0-44.0); MEAN CORPUSCULAR HGB CONC 31 g/dl (31.0-36.0); MEAN CORPUSCULAR VOLUME 101 fL (82-100); MONOCYTES # (AUTO) 0.2 /CMM (0.1-1.30); MONOCYTES % (AUTO) 3.9 % (2.0-12.0); NEUTROPHILS # (AUTO) 4.1 /CMM (1.8-8.9); NEUTROPHILS % (AUTO) 87.2 % (43.0-81.0); PLATELET COUNT (AUTO) 159 /CMM (150-450); RED BLOOD CELL COUNT(AUTO) 2.84 MIL/uL (4.0-5.2); WHITE BLOOD COUNT (AUTO) 4.7 K/uL (4.3-11.0)
[2020-05-01 13:45] LABS: ALANINE AMINOTRANSFERASE 26 U/L (12-78); ALBUMIN 1.6 g/dL (3.4-5.0); ALKALINE PHOSPHATASE 78 U/L (46-116); ASPARTATE AMINOTRANSFERASE 40 U/L (15-37); BILIRUBIN,TOTAL 0.3 mg/dL (0.2-1.0); CALCIUM, SERUM 7.6 mg/dL (8.5-10.1); CARBON DIOXIDE 17 mmol/L (21-32); CHLORIDE 103 mmol/L (98-107); CREATININE 2.9 mg/dL (0.6-1.3); GLUCOSE 133 mg/dL (74-106); POTASSIUM 4.3 mmol/L (3.5-5.1); SODIUM SERUM 135 mmol/L (136-145); TOTAL PROTEIN, SERUM 5.5 g/dL (6.4-8.2)
[2020-05-01 13:55] LABS: UREA NITROGEN, BLOOD 111 mg/dL (7-18)
--- NOTE | 2020-05-01 16:00 | NUR ---
RN NOTES PEEP 12
--- NOTE | 2020-05-01 17:00 | NUR ---
RN NOTES TEM IS 96.2
--- NOTE | 2020-05-01 19:00 | NUR ---
RN CLOSING NOTES: RECEIVED PT IN BED, PT IS INTUBATED 7/22cm AT THE LIP ON MECHANICAL VENTILATION ORDERED PER SETTINGS. TOLERATING WELL NO S/S OF SHORTNESS OB BREATH OR RESPIRATORY DISTRESS NOTED. SB ON MONITOR. NGT IN PLACE. IGOR PICC LINE WITH Fentanyl at 2.5mcg ,Versed at 5ml/hr AND Dopamine at 4mcg/kg/min. FLEXISEAL IN PLACE . LOBATO CATH IN PLACE DRAINING YELLOW SAFETY MEASUREMENTS ARE IN PLACE. BED IS IN THE LOWEST POSITION, BED LOCKED AND SIDE RAILS ARE UP. WILL ENDORSE TO PM NURSE FOR FLIP
--- NOTE | 2020-05-01 19:10 | NUR ---
MERCHANDISER SEASONAL OPENING NOTES: Rec'd pt in bed, intubated 7/22cm at the lip on mechanical ventilation. Tolerating settings well. SB on tele monitor. Left NGT in place. TF held due to high residuals. IGOR PICC line patent and infusing Fentanyl at 2.5mcg, Versed at 5ml/hr, Dopamine at 4mcg/kg/min. Flexiseal in place. Arias catheter in place draining urine via gravity. Safety measures in place. Will continue to monitor.
--- NOTE | 2020-05-01 20:25 | NUR ---
RECEIVED PT INTUBATED ON VENT. 7.0 ETT SECURED AT 22CM LIP LINE. SX'D SML AMT OF THICK LUND SECRETIONS. VENT ALARMS AUDIBLE. ETT CUFF CHECKED. CONTINUE TO MONITOR. Addendum: 05/01/20 at 2026 by RONN SMITH RT Amended: Links added.
[2020-05-01] MEDS: INSULIN GLARGINE, 100 UNIT/ML CARTRIDGE SQ SCH (21:48)
[2020-05-02] VITALS (93 sets, daily range): BP systolic 73–152; BP diastolic 18–77
[2020-05-02] MEDS: MIDAZOLAM HCL 100 MG in IV NS 0.9% 80 ML IV PRN ×2 (01:59→21:08)
[2020-05-02 05:19] LABS: BASOPHILS % (AUTO) 0.2 % (0.0-2.0); EOSINOPHILS % (AUTO) 1.3 % (0.0-6.0); HEMATOCRIT 25 % (33-45); HEMOGLOBIN 8.1 g/dL (11.5-14.8); LYMPHOCYTES # (AUTO) 0.3 /CMM (0.8-4.8); LYMPHOCYTES % (AUTO) 4.8 % (20.0-44.0); MEAN CORPUSCULAR HGB CONC 33 g/dl (31.0-36.0); MEAN CORPUSCULAR VOLUME 96 fL (82-100); MONOCYTES # (AUTO) 0.3 /CMM (0.1-1.30); MONOCYTES % (AUTO) 4.9 % (2.0-12.0); NEUTROPHILS # (AUTO) 4.7 /CMM (1.8-8.9); NEUTROPHILS % (AUTO) 88.8 % (43.0-81.0); PLATELET COUNT (AUTO) 149 /CMM (150-450); RED BLOOD CELL COUNT(AUTO) 2.59 MIL/uL (4.0-5.2); WHITE BLOOD COUNT (AUTO) 5.3 K/uL (4.3-11.0)
[2020-05-02 05:33] LABS: CALCIUM, SERUM 7.3 mg/dL (8.5-10.1); CARBON DIOXIDE 19 mmol/L (21-32); CHLORIDE 105 mmol/L (98-107); CREATININE 2.7 mg/dL (0.6-1.3); GLUCOSE 123 mg/dL (74-106); MAGNESIUM 2.3 mg/dL (1.8-2.4); PHOSPHORUS 4.9 mg/dL (2.5-4.9); POTASSIUM 3.4 mmol/L (3.5-5.1); SODIUM SERUM 138 mmol/L (136-145)
[2020-05-02] MEDS: HYDROCORTISONE SOD SUCCINATE 100 MG/2 ML VIAL IV SCH ×3 (05:42→21:15)
[2020-05-02 05:44] LABS: UREA NITROGEN, BLOOD 102 mg/dL (7-18)
[2020-05-02] MEDS: BLOOD SUGAR DIAGNOSTIC 1 EACH STRIP IN SCH ×4 (06:09→23:41)
[2020-05-02] MEDS: INSULIN REGULAR, HUMAN 100 UNIT/ML 3 ML VIAL SQ PRN ×2 (06:11→23:41)
--- NOTE | 2020-05-02 07:05 | NUR ---
ICU NOTES: Received pt in bed, intubated 7/22cm at the lip on mechanical ventilation. Tolerating settings well. SR on tele monitor. Left NGT in place. IGOR PICC line patent and infusing Fentanyl at 2.5mcg, Versed at 5ml/hr, Dopamine at 4mcg/kg/min. Flexiseal in place. Arias catheter in place draining urine via gravity. Safety measures in place. Will continue to monitor.
[2020-05-02] MEDS: PROSOURCE / PROSTAT (PYXIS) 30 ML UDC GT SCH ×3 (08:16→16:45)
[2020-05-02] MEDS: PANTOPRAZOLE 40 MG VIAL IV SCH ×2 (08:31→16:44)
[2020-05-02] MEDS: CLOTRIMAZOLE 1% 15 GM TUBE TP SCH ×2 (08:31→16:45)
[2020-05-02] MEDS: DOPamine 400 MG in IV D5W 250 ML IV PRN (08:34)
[2020-05-02] MEDS ORDERED: POTASSIUM CHLORIDE 20 MEQ POWDER PACKET NG SCH (09:30)
[2020-05-02] MEDS: FENTANYL CITRAT IV 2,500 MCG in IV NS 0.9% 200 ML IV PRN ×2 (09:55→21:33)
[2020-05-02 12:47] LABS: ABG BASE EXCESS -8.1 mmol/L; ABG OXYGEN SATURATION 90.1 % (92.0-98.5); ABG PCO2 35.5 mmHg (35.0-45.0); ABG PH 7.308 (7.350-7.450); ABG PO2 61.9 mmHg (75.0-100.0); AaDO2 435.1 mmHg; COHb 0.9 % (0.5-1.5); MetHb 0.1 % (0.0-1.5); O2Hb 89.2 % (94.0-97.0); PEEP,BG 12 cm H2O; SITE, ABG Right Radial; VT, ABG 475 mL
--- NOTE | 2020-05-02 20:00 | NUR ---
RN NOTES PATIENT IN BED INTUBATED, ON MECHANICAL VENT, TOLERATING SETTINGS WELL. TELE MONITOR ON, SR 80'S. LEFT NGT IN PLACE. IGOR PICC LINE PATENT AND INFUSING FENTANYL 2.5 MCG, VERSED AT 5ML/HR, AND DOPAMINE @ 4MCG/KG/MIN. FLEXISEAL IN PLACE. WITH LOBATO CATH DRAINING YELLOW URINE VIA GRAVITY. WILL CONTINUE TO MONITOR.
[2020-05-02] MEDS: INSULIN GLARGINE, 100 UNIT/ML CARTRIDGE SQ SCH (21:57)
--- NOTE | 2020-05-02 21:58 | NUR ---
NON-ADMINISTERED LANTUS 21 UNITS. BLOOD SUGAR AT THIS TIME 97. WILL CONTINUE TO MONITOR.
[2020-05-02] MEDS: IV NS 0.9% 250 ML IV PRN (23:53)
[2020-05-03] VITALS (88 sets, daily range): BP systolic 97–134; BP diastolic 43–70
[2020-05-03] MEDS: DOPamine 400 MG in IV D5W 250 ML IV PRN ×2 (00:13→21:52)
[2020-05-03] MEDS: HYDROCORTISONE SOD SUCCINATE 100 MG/2 ML VIAL IV SCH ×3 (05:27→21:00)
[2020-05-03] MEDS: BLOOD SUGAR DIAGNOSTIC 1 EACH STRIP IN SCH ×4 (05:40→23:22)
[2020-05-03] MEDS: INSULIN REGULAR, HUMAN 100 UNIT/ML 3 ML VIAL SQ PRN ×4 (05:43→23:23)
--- NOTE | 2020-05-03 06:57 | NUR ---
RN NOTES PATIENT IN BED INTUBATED, ON MECHANICAL VENT, TOLERATING SETTINGS WELL. TELE MONITOR ON, SR 60'S. LEFT NGT IN PLACE. FEEDING REMAINS HELD, RESIDUAL 150 CC. IGOR PICC LINE PATENT AND INFUSING FENTANYL 2.5 MCG, VERSED AT 5ML/HR, AND DOPAMINE @ 3MCG/KG/MIN. FLEXISEAL IN PLACE, OUTPUT 50 ML. WITH LOBATO CATH DRAINING YELLOW URINE VIA GRAVITY, OUTPUT 1700. ALL DUE MEDS GIVEN ORDERED. KEPT CLEAN AND DRY. WILL ENDORSE TO ONCOMING SHIFT.
--- NOTE | 2020-05-03 07:45 | NUR ---
RECEIVED PATIENT IN BED. NO ACUTE DISTRESS NOTED. PATIENT ON MECHANICAL VENTILATOR, SATURATING WELL AT >94%. PATIENT ON DIRECTOR APPAREL, NSR NOTED. PATIENT SEDATED ON VERSED. PATIENT L NGT IN PLACE, INTACT, PATENT. LOBATO CATHETER IN PLACE, INTACT, DRAINING TO GRAVITY. PATIENT IGOR PICC LINE IN PLACE, INTACT, PATENT. PATIENT SAFETY MEASURES MAINTAINED. WILL CONTINUE TO MONITOR.
[2020-05-03] MEDS: PANTOPRAZOLE 40 MG VIAL IV SCH ×2 (08:55→17:34)
[2020-05-03] MEDS: PROSOURCE / PROSTAT (PYXIS) 30 ML UDC GT SCH ×3 (08:55→17:32)
[2020-05-03] MEDS: CLOTRIMAZOLE 1% 15 GM TUBE TP SCH ×2 (08:56→17:33)
[2020-05-03] MEDS: FENTANYL CITRAT IV 2,500 MCG in IV NS 0.9% 200 ML IV PRN ×2 (09:09→20:44)
[2020-05-03 10:08] LABS: EOSINOPHILS % (AUTO) 0.1 % (0.0-6.0); HEMATOCRIT 24 % (33-45); HEMOGLOBIN 7.7 g/dL (11.5-14.8); LYMPHOCYTES # (AUTO) 0.3 /CMM (0.8-4.8); LYMPHOCYTES % (AUTO) 5.9 % (20.0-44.0); MEAN CORPUSCULAR HGB CONC 33 g/dl (31.0-36.0); MEAN CORPUSCULAR VOLUME 95 fL (82-100); MONOCYTES # (AUTO) 0.1 /CMM (0.1-1.30); PLATELET COUNT (AUTO) 143 /CMM (150-450); RED BLOOD CELL COUNT(AUTO) 2.48 MIL/uL (4.0-5.2); WHITE BLOOD COUNT (AUTO) 4.3 K/uL (4.3-11.0)
[2020-05-03 10:48] LABS: ALANINE AMINOTRANSFERASE 27 U/L (12-78); ALKALINE PHOSPHATASE 74 U/L (46-116); ASPARTATE AMINOTRANSFERASE 31 U/L (15-37); BILIRUBIN,TOTAL 0.6 mg/dL (0.2-1.0); CALCIUM, SERUM 6.6 mg/dL (8.5-10.1); CARBON DIOXIDE 22 mmol/L (21-32); CHLORIDE 109 mmol/L (98-107); CREATININE 2.3 mg/dL (0.6-1.3); GLUCOSE 180 mg/dL (74-106); MAGNESIUM 1.8 mg/dL (1.8-2.4); PHOSPHORUS 4.6 mg/dL (2.5-4.9); POTASSIUM 3.1 mmol/L (3.5-5.1); SODIUM SERUM 145 mmol/L (136-145); TOTAL PROTEIN, SERUM 5.1 g/dL (6.4-8.2)
[2020-05-03 11:11] LABS: ALBUMIN 1.4 g/dL (3.4-5.0); UREA NITROGEN, BLOOD 89 mg/dL (7-18)
[2020-05-03] MEDS: METOCLOPRAMIDE HCL 10 MG/2 ML VIAL IV SCH ×3 (12:01→23:25)
[2020-05-03] MEDS ORDERED: ZOSYN IVPB 3.375 G in IV D5W 50ml IV ONE (13:30)
--- NOTE | 2020-05-03 16:38 | NUR ---
PER AUDREY GALVEZ NP TAKE PATIENT OFF VERSED
--- NOTE | 2020-05-03 18:26 | NUR ---
PATIENT IN BED. NO ACUTE DISTRESS NOTED. PATIENT ON MECHANICAL VENTILATOR, SATURATING WELL AT >94%. PATIENT ON MANAGER UNIVERSAL, NSR NOTED. PATIENT L NGT IN PLACE, INTACT, PATENT. LOBATO CATHETER IN PLACE, INTACT, DRAINING TO GRAVITY. PATIENT IGOR PICC LINE IN PLACE, INTACT, PATENT. PATIENT SAFETY MEASURES MAINTAINED. WILL ENDORSE PLAN OF CARE TO ONCOMING SHIFT
--- NOTE | 2020-05-03 19:30 | NUR ---
WALLBOARD WORKER RCD PT INTUBATED; 90 % FIO2 +12; BLEEDING NOTED/ DRY BLOOD IN MOUTH NOTED. PROVIDED ORAL CARE. DESHAWN ON MONITOR WITH DOPAMINE @ 3 MCG; PT SEDATED W/FENTANYL @ 2.5 MCG. LOBATO W/LARGE AMOUNT YELLOW URINE. FLEXI SEAL IN PLACE.
[2020-05-03] MEDS: MEROPENEM 500 MG in IV NS 0.9% 50 ML IV SCH (21:00)
[2020-05-03] MEDS: INSULIN GLARGINE, 100 UNIT/ML CARTRIDGE SQ SCH (23:24)
[2020-05-04] VITALS (72 sets, daily range): BP systolic 57–141; BP diastolic 21–90
[2020-05-04] MEDS ORDERED: PIPERACILLIN /TAZOBACTAM 3.375 G in IV D5W 100 ML IV SCH (02:00)
[2020-05-04] MEDS: HYDROCORTISONE SOD SUCCINATE 100 MG/2 ML VIAL IV SCH ×3 (06:23→20:19)
[2020-05-04] MEDS: METOCLOPRAMIDE HCL 10 MG/2 ML VIAL IV SCH ×4 (06:23→23:01)
[2020-05-04] MEDS: BLOOD SUGAR DIAGNOSTIC 1 EACH STRIP IN SCH ×4 (06:24→23:01)
[2020-05-04] MEDS: INSULIN REGULAR, HUMAN 100 UNIT/ML 3 ML VIAL SQ PRN ×2 (06:55→23:11)
[2020-05-04 08:30] LABS: ABG BASE EXCESS -3.7 mmol/L; ABG OXYGEN SATURATION 91.5 % (92.0-98.5); ABG PH 7.373 (7.350-7.450); ABG PO2 64.7 mmHg (75.0-100.0); AaDO2 539.1 mmHg; COHb 0.6 % (0.5-1.5); MetHb 0.2 % (0.0-1.5); O2Hb 90.8 % (94.0-97.0); PEEP,BG 12 cm H2O; SITE, ABG Right Radial; VENT MODE, BG ac/prvc 30; VT, ABG 475 mL
[2020-05-04] MEDS: PANTOPRAZOLE 40 MG VIAL IV SCH ×2 (08:35→16:58)
[2020-05-04] MEDS: MEROPENEM 500 MG in IV NS 0.9% 50 ML IV SCH ×2 (08:35→20:20)
[2020-05-04] MEDS: PROSOURCE / PROSTAT (PYXIS) 30 ML UDC GT SCH ×3 (08:35→16:58)
[2020-05-04] MEDS: CLOTRIMAZOLE 1% 15 GM TUBE TP SCH ×2 (08:36→16:58)
[2020-05-04 08:46] LABS: BASOPHILS % (AUTO) 0.1 % (0.0-2.0); EOSINOPHILS % (AUTO) 0.3 % (0.0-6.0); HEMATOCRIT 31 % (33-45); HEMOGLOBIN 9.3 g/dL (11.5-14.8); LYMPHOCYTES # (AUTO) 0.4 /CMM (0.8-4.8); LYMPHOCYTES % (AUTO) 6.1 % (20.0-44.0); MEAN CORPUSCULAR HGB CONC 30 g/dl (31.0-36.0); MEAN CORPUSCULAR VOLUME 102 fL (82-100); MONOCYTES # (AUTO) 0.4 /CMM (0.1-1.30); MONOCYTES % (AUTO) 6.5 % (2.0-12.0); NEUTROPHILS # (AUTO) 5.5 /CMM (1.8-8.9); PLATELET COUNT (AUTO) 180 /CMM (150-450); WHITE BLOOD COUNT (AUTO) 6.3 K/uL (4.3-11.0)
[2020-05-04] MEDS: FENTANYL CITRAT IV 2,500 MCG in IV NS 0.9% 200 ML IV PRN ×2 (08:50→20:45)
[2020-05-04 09:31] LABS: CARBON DIOXIDE 23 mmol/L (21-32); CHLORIDE 109 mmol/L (98-107); CREATININE 2.2 mg/dL (0.6-1.3); GLUCOSE 175 mg/dL (74-106); SODIUM SERUM 147 mmol/L (136-145)
[2020-05-04 10:08] LABS: POTASSIUM 2.6 mmol/L (3.5-5.1)
[2020-05-04 10:09] LABS: UREA NITROGEN, BLOOD 87 mg/dL (7-18)
--- NOTE | 2020-05-04 10:20 | NUR ---
RT NOTE: Patient peak pressures increased from 50's to 78. Decreased PEEP from 12 to 10 . Increased fio2 to 100%. Patient pressures decreased. Dr Marks was informed and ordered to decrease Vt from 475 to 450ml. Addendum: 05/04/20 at 1024 by LAMIN SAMS RT Amended: Links added.
[2020-05-04] MEDS: POTASSIUM CHLORIDE 20 MEQ POWDER PACKET NG SCH ×3 (12:30→13:55)
--- NOTE | 2020-05-04 14:55 | NUR ---
RN NOTE 0715: Received patient with ETT to vent, tolerated settings, AC 30 Vt 175 90% +12. SR on the monitor. On isolation prec for Covid maintained and observed. Left NGT intact, clamped for noted with high residuals, noted with 150 dark greenish secretions. Arias cath intact, noted with good UOP with yellow urine. IGOR PICC intact, on Dopamine 3mcg and Fentanyl @ 2.5mcg. Flexiseal, with dark green loose stool. 1200: BS 134, held insulin for NPO. 1300: K 2.6, 40 mEq x3 given. 1500: Still noted with desat time to time, increased FIO2 to 100% will titrate as able.
--- NOTE | 2020-05-04 18:54 | NUR ---
RN NOTE Nera SPUD SORTER ID S/E by patient and said to DC iso for Covid and no more test necessary. CN aware.
--- NOTE | 2020-05-04 20:00 | NUR ---
CUSTOMER SERVICER NOTE PT IN BED SEDATED. ON V/T TOLERATING THE SETTINGS WELL, NO DISTRESS OR DISCOMFORT NOTED. NO S/S OF PAIN NOTED. ON TELE MONITOR SR WITH INVERTED T WAVE HR 84. LT JASMYNE NGT INTACT AND PATENT CLAMPED. FLEXISEAL TUBE INTACT AND PATENT DRAINING BROWNISH COLOR STOOL. PT REMAIN NPO. IGOR PICC LINE INTACT AND PATENT INFUSING FENTANYL 2.5 MCG/KG/MIN. REPOSITION HER Q2H, KEPT HER DRY AND CLEAN. ALL NEEDS ATTENDED. CONTINUE TO MONITOR HER.
--- NOTE | 2020-05-04 20:19 | NUR ---
RECEIVED PT INTUBATED 7.0 ETT AT 22CM AT THE LIP. CURRENT VENT SETTINGS AC 25, 450, 100%, +10. VENT ALARMS SET AND AUDIBLE. SMALL LUND SECRETIONS. VENT PLUGGED INTO RED OUTLET. ETT CUFF CHECKED. CONTINUE TO MONITOR. Addendum: 05/04/20 at 2020 by RONN SMITH RT Amended: Links added.
[2020-05-04] MEDS: INSULIN GLARGINE, 100 UNIT/ML CARTRIDGE SQ SCH (23:10)
[2020-05-05] VITALS (71 sets, daily range): BP systolic 97–149; BP diastolic 44–81
[2020-05-05] MEDS: HYDROCORTISONE SOD SUCCINATE 100 MG/2 ML VIAL IV SCH ×3 (05:00→21:01)
[2020-05-05] MEDS: METOCLOPRAMIDE HCL 10 MG/2 ML VIAL IV SCH ×4 (05:00→23:13)
[2020-05-05] MEDS: BLOOD SUGAR DIAGNOSTIC 1 EACH STRIP IN SCH ×4 (05:44→23:12)
--- NOTE | 2020-05-05 07:08 | NUR ---
RESTAURANT GENERAL MANAGER NOTE NO CHANGE IN CONDITION PT REMAIN SEDATED. ENDORSED TO DAY SHIFT NURSE FAM FOR CONTINUE TO CARE.
--- NOTE | 2020-05-05 07:15 | NUR ---
RECEIVED PATIENT IN BED. NO ACUTE DISTRESS NOTED. PATIENT SEDATED ON FENTANYL. PATIENT ON MECHANICAL VENTILATOR, SATURATING 88-92%, WILL NOTIFY RT AND DR. ALCARAZ, WILL AWAIT ORDERS/VENT CHANGES IF REQUIRED. PATIENT ON BAR WELDER, NSR NOTED. PATIENT L NGT IN PLACE, INTACT. PATIENT FC IN PLACE, INTACT, DRAINING TO GRAVITY. PATIENT NPO STATUS ACKNOWLEDGED, WILL FOLLOW UP. PATIENT IGOR PICC INTACT, PATENT. PATIENT SAFETY MEASURES MAINTAINED. WILL CONTINUE TO MONITOR.
--- NOTE | 2020-05-05 08:34 | NUR ---
WOUND CARE CONSULT: REVIEWED CHART, NURSING DOCUMENTATION AND PHOTOS WHICH INDICATE INCONTINENCE ASSOCIATED SKIN DAMAGE TO BUTTOCKS. PT HAS RECTAL TUBE WITH SOME LEAKAGE AROUND TUBE PER NURSING STAFF. Z GUARD IN USE. PT IS ON [place] ISOFLEX LOW AIRLOSS BED. MD IN AGREEMENT WITH PLAN OF CARE.
[2020-05-05] MEDS: PANTOPRAZOLE 40 MG VIAL IV SCH ×2 (08:51→17:25)
[2020-05-05] MEDS: MEROPENEM 500 MG in IV NS 0.9% 50 ML IV SCH ×2 (08:52→21:01)
[2020-05-05] MEDS: PROSOURCE / PROSTAT (PYXIS) 30 ML UDC GT SCH ×3 (08:52→17:25)
[2020-05-05] MEDS: CLOTRIMAZOLE 1% 15 GM TUBE TP SCH ×2 (08:52→17:25)
[2020-05-05 09:12] LABS: BASOPHILS % (AUTO) 0.2 % (0.0-2.0); EOSINOPHILS % (AUTO) 0.2 % (0.0-6.0); HEMATOCRIT 24 % (33-45); HEMOGLOBIN 7.5 g/dL (11.5-14.8); LYMPHOCYTES # (AUTO) 0.3 /CMM (0.8-4.8); LYMPHOCYTES % (AUTO) 4.5 % (20.0-44.0); MEAN CORPUSCULAR HGB CONC 32 g/dl (31.0-36.0); MEAN CORPUSCULAR VOLUME 97 fL (82-100); MONOCYTES # (AUTO) 0.4 /CMM (0.1-1.30); NEUTROPHILS # (AUTO) 5.6 /CMM (1.8-8.9); NEUTROPHILS % (AUTO) 89.1 % (43.0-81.0); PLATELET COUNT (AUTO) 137 /CMM (150-450); RED BLOOD CELL COUNT(AUTO) 2.45 MIL/uL (4.0-5.2); WHITE BLOOD COUNT (AUTO) 6.2 K/uL (4.3-11.0)
[2020-05-05] MEDS: FENTANYL CITRAT IV 2,500 MCG in IV NS 0.9% 200 ML IV PRN ×2 (09:14→20:40)
[2020-05-05 09:24] LABS: CALCIUM, SERUM 6.1 mg/dL (8.5-10.1); CARBON DIOXIDE 23 mmol/L (21-32); CHLORIDE 117 mmol/L (98-107); CREATININE 1.7 mg/dL (0.6-1.3); GLUCOSE 123 mg/dL (74-106); POTASSIUM 3.3 mmol/L (3.5-5.1); SODIUM SERUM 151 mmol/L (136-145); UREA NITROGEN, BLOOD 74 mg/dL (7-18)
[2020-05-05 09:30] LABS: ALANINE AMINOTRANSFERASE 22 U/L (12-78); ALBUMIN 1.7 g/dL (3.4-5.0); ALKALINE PHOSPHATASE 60 U/L (46-116); ASPARTATE AMINOTRANSFERASE 24 U/L (15-37); BILIRUBIN,TOTAL 0.4 mg/dL (0.2-1.0); MAGNESIUM 1.5 mg/dL (1.8-2.4); PHOSPHORUS 3.5 mg/dL (2.5-4.9); TOTAL PROTEIN, SERUM 5.4 g/dL (6.4-8.2)
[2020-05-05] MEDS: INSULIN REGULAR, HUMAN 100 UNIT/ML 3 ML VIAL SQ PRN ×2 (12:32→17:32)
[2020-05-05] MEDS: IV NS 0.9% 250 ML IV PRN (12:48)
[2020-05-05 14:37] LABS: ABG BASE EXCESS -4.9 mmol/L; ABG OXYGEN SATURATION 85.5 % (92.0-98.5); ABG PCO2 53.3 mmHg (35.0-45.0); ABG PH 7.244 (7.350-7.450); ABG PO2 56.8 mmHg (75.0-100.0); AaDO2 602.9 mmHg; COHb 0.4 % (0.5-1.5); MetHb 0.3 % (0.0-1.5); O2Hb 84.9 % (94.0-97.0); PEEP,BG 12 cm H2O; SITE, ABG Left Radial; VENT MODE, BG AC/ 2:1 IE RATIO; VT, ABG 450 mL
--- NOTE | 2020-05-05 19:00 | NUR ---
RN NOTE RECEIVED PATIENT IN BED, ON SEMI ALEGRIA'S, SEDATED, IN NO S/SX OF ACUTE DISTRESS AT THIS TIME. PATIENT ON ET TUBE CONNECTED TO MECHANICAL VENT WITH SETTINGS PRESCRIBED, SATURATION AT 94%, SR ON THE MONITOR, HR IS 95. NASO GASTRIC TUBE AT L NARE INTACT, PLACEMENT WAS CHECKED BY ASPIRATION AND AUSCULTATION, MORE THAN 100 ML OF RESIDUAL WAS NOTED. NOTED PRESSURE SORE AT R MANDIBULAR AND AT RIGHT CLAVICULAR AREA. PHOTOS WERE TAKEN AND PLACED IN CHART. IGOR PICC LINE INTACT, ALL HUBS PATENT AND FLUSHING WELL, NO S/S OF INFECTION NOTED, FENTANYL DRIP INFUSING AT 2.5 MCG/KG/HR, AND NS AT TKO. LOBATO CATHETER CONNECTED TO URINE BAG IN PLACE, DRAINING TO A CLEAR YELLOW URINE, FLEXI SEAL IS INTACT. SAFETY MEASURES HAVE BEEN PROVIDED AND IMPLEMENTED. PATIENT BED ALARM IS ON. HEAD OF BED ELEVATED. BED IS LOCKED, IN LOWEST POSITION AND SIDE RAILS UP. CALL LIGHT WITHIN REACH OF THE PATIENT. WILL CONTINUE TO MONITOR AND REASSESS FOR ANY CHANGES.
[2020-05-05] MEDS: INSULIN GLARGINE, 100 UNIT/ML CARTRIDGE SQ SCH (22:00)
--- NOTE | 2020-05-05 23:00 | NUR ---
RN NOTE LANTUS 21 UNITS NON ADMINISTERED. FINGER STICK BLOOD GLUCOSE 122, PATIENT IS NPO, NO ON-GOING FLUIDS.
[2020-05-06] VITALS (73 sets, daily range): BP systolic 91–165; BP diastolic 50–83
--- NOTE | 2020-05-06 00:01 | NUR ---
RN NOTE NOTED PRESSURE SORE/WOUND AT R CHIN AND R CLAVICULAR AREA, BOTH MEASURING APPROXIMATELY 2.5 CM X 0.5 CM, 0.1 CM. WOUND WAS PROTECTED WITH MEPILEX AND OFFLOADED. WOUND CARE CONSULT INITIATED. WILL CONTINUE TO MONITOR. MARKETING SERVICES REP MADE AWARE.
[2020-05-06] MEDS: HYDROCORTISONE SOD SUCCINATE 100 MG/2 ML VIAL IV SCH ×3 (05:55→20:59)
[2020-05-06] MEDS: METOCLOPRAMIDE HCL 10 MG/2 ML VIAL IV SCH ×4 (05:55→23:34)
[2020-05-06] MEDS: BLOOD SUGAR DIAGNOSTIC 1 EACH STRIP IN SCH ×4 (05:55→23:45)
--- NOTE | 2020-05-06 07:10 | NUR ---
RN NOTE RECEIVED PATIENT IN BED, ON SEMI ALEGRIA'S, SEDATED, IN NO S/SX OF ACUTE DISTRESS AT THIS TIME. PATIENT ON ET TUBE CONNECTED TO MECHANICAL VENT WITH SETTINGS PRESCRIBED, SATURATION AT 93%, SR ON THE MONITOR, HR IS 88%. NASO GASTRIC TUBE AT L NARE INTACT, PLACEMENT WAS CHECKED BY ASPIRATION AND AUSCULTATION, MORE THAN 160 ML OF RESIDUAL WAS NOTED. IGOR PICC LINE INTACT, ALL HUBS PATENT AND FLUSHING WELL, NO S/S OF INFECTION NOTED, FENTANYL DRIP INFUSING AT 2.5 MCG/KG/HR, AND NS AT TKO. LOBATO CATHETER CONNECTED TO URINE BAG IN PLACE, DRAINING TO A CLEAR YELLOW URINE, FLEXI SEAL IS INTACT. SAFETY MEASURES IN PLACE, WILL CONTINUE TO MONITOR.
[2020-05-06] MEDS: PROSOURCE / PROSTAT (PYXIS) 30 ML UDC GT SCH ×3 (09:00→16:32)
[2020-05-06] MEDS: MEROPENEM 500 MG in IV NS 0.9% 50 ML IV SCH ×2 (09:03→21:00)
[2020-05-06] MEDS: PANTOPRAZOLE 40 MG VIAL IV SCH ×2 (09:04→16:32)
[2020-05-06] MEDS: CLOTRIMAZOLE 1% 15 GM TUBE TP SCH ×2 (09:04→16:32)
[2020-05-06 09:45] LABS: BASOPHILS % (AUTO) 0.3 % (0.0-2.0); EOSINOPHILS % (AUTO) 0.1 % (0.0-6.0); HEMATOCRIT 28 % (33-45); HEMOGLOBIN 8.8 g/dL (11.5-14.8); LYMPHOCYTES # (AUTO) 0.4 /CMM (0.8-4.8); LYMPHOCYTES % (AUTO) 3.6 % (20.0-44.0); MEAN CORPUSCULAR HGB CONC 31 g/dl (31.0-36.0); MEAN CORPUSCULAR VOLUME 99 fL (82-100); MONOCYTES # (AUTO) 0.4 /CMM (0.1-1.30); MONOCYTES % (AUTO) 3.7 % (2.0-12.0); NEUTROPHILS % (AUTO) 92.3 % (43.0-81.0); PLATELET COUNT (AUTO) 122 /CMM (150-450); RED BLOOD CELL COUNT(AUTO) 2.87 MIL/uL (4.0-5.2); WHITE BLOOD COUNT (AUTO) 10.8 K/uL (4.3-11.0)
[2020-05-06 09:56] LABS: CALCIUM, SERUM 6.4 mg/dL (8.5-10.1); CARBON DIOXIDE 22 mmol/L (21-32); CHLORIDE 118 mmol/L (98-107); CREATININE 1.8 mg/dL (0.6-1.3); GLUCOSE 137 mg/dL (74-106); POTASSIUM 3.8 mmol/L (3.5-5.1); SODIUM SERUM 154 mmol/L (136-145)
[2020-05-06] MEDS: FENTANYL CITRAT IV 2,500 MCG in IV NS 0.9% 200 ML IV PRN ×2 (09:58→20:22)
[2020-05-06 10:00] LABS: UREA NITROGEN, BLOOD 80 mg/dL (7-18)
[2020-05-06] MEDS: MIDAZOLAM HCL 100 MG in IV NS 0.9% 80 ML IV PRN (10:53)
[2020-05-06] MEDS ORDERED: MIDAZOLAM HCL 100 MG in IV NS 0.9% 80 ML IV PRN (11:00)
[2020-05-06 12:03] LABS: ABG BASE EXCESS -4.1 mmol/L; ABG OXYGEN SATURATION 86.4 % (92.0-98.5); ABG PCO2 53.7 mmHg (35.0-45.0); ABG PH 7.253 (7.350-7.450); ABG PO2 55.9 mmHg (75.0-100.0); AaDO2 603.4 mmHg; COHb 0.3 % (0.5-1.5); MetHb 0.2 % (0.0-1.5); PEEP,BG 14 cm H2O; SITE, ABG Right Radial; VENT MODE, BG AC 25 2:1 i:e ratio; VT, ABG 450 mL
[2020-05-06] MEDS: INSULIN REGULAR, HUMAN 100 UNIT/ML 3 ML VIAL SQ PRN ×3 (12:05→23:47)
[2020-05-06] MEDS: IV NS 0.9% 250 ML IV PRN (16:24)
--- NOTE | 2020-05-06 19:10 | NUR ---
STIFF LEG OPERATOR OPENING NOTES: Rec'd pt in bed intubated and sedated 7/22cm at the lip. Tolerating vent settings well. No resp distress noted. SR on tele monitor. Left NGT in place, npo due to high residuals. IGOR PICC in place w/ Fentanyl infusing at 3mcg and Versed at 7mg. Arias catheter in place patent and draining urine via gravity. Flexiseal in place. Safety measures in place. Will continue to monitor.
--- NOTE | 2020-05-06 20:50 | NUR ---
EMERGING SOLUTIONS EXECUTIVE NOTE: Spoke w/ GIL Bradley about order that was placed to start midline and d/c PICC line and send tip for culture. Explained that the medications she has running are not compatible to run through one midline and need an order for a second one. Gave order for 2nd midline. Noted. Addendum: 05/06/20 at 2055 by DAMIAN GASPAR RN RN Staff Anesthesiologist made aware midline placement needed.
--- NOTE | 2020-05-06 21:21 | NUR ---
HEEL SEAT FITTER MACHINE NOTE: Paged plant controls specialist, Dr. Burch in regards to pt's 0 Lantus 21units. Explained that pt's GTF is held due to high residuals. When checked, got residual of 190. Accucheck was 138. Informed md that pt has no fluids running. MD said ok to give Lantus. Noted.
[2020-05-06] MEDS: INSULIN GLARGINE, 100 UNIT/ML CARTRIDGE SQ SCH (21:25)
[2020-05-07] VITALS (29 sets, daily range): BP systolic 99–118; BP diastolic 51–62
[2020-05-07] MEDS: MIDAZOLAM HCL 100 MG in IV NS 0.9% 80 ML IV PRN ×2 (01:16→17:24)
--- NOTE | 2020-05-07 04:10 | NUR ---
MANAGER HVAC NOTE: Pt noted w/ temp of 96.3 rectal, lee ann hugger placed back on pt.
[2020-05-07 04:39] LABS: BASOPHILS % (AUTO) 0.1 % (0.0-2.0); EOSINOPHILS % (AUTO) 0.1 % (0.0-6.0); HEMATOCRIT 25 % (33-45); HEMOGLOBIN 8.1 g/dL (11.5-14.8); LYMPHOCYTES # (AUTO) 0.5 /CMM (0.8-4.8); LYMPHOCYTES % (AUTO) 6.1 % (20.0-44.0); MEAN CORPUSCULAR HGB CONC 32 g/dl (31.0-36.0); MEAN CORPUSCULAR VOLUME 95 fL (82-100); MONOCYTES # (AUTO) 0.3 /CMM (0.1-1.30); MONOCYTES % (AUTO) 3.7 % (2.0-12.0); NEUTROPHILS # (AUTO) 7.4 /CMM (1.8-8.9); PLATELET COUNT (AUTO) 84 /CMM (150-450); RED BLOOD CELL COUNT(AUTO) 2.66 MIL/uL (4.0-5.2); WHITE BLOOD COUNT (AUTO) 8.2 K/uL (4.3-11.0)
[2020-05-07 05:01] LABS: CALCIUM, SERUM 6.3 mg/dL (8.5-10.1); CARBON DIOXIDE 23 mmol/L (21-32); CHLORIDE 119 mmol/L (98-107); GLUCOSE 125 mg/dL (74-106); MAGNESIUM 1.5 mg/dL (1.8-2.4); PHOSPHORUS 4.2 mg/dL (2.5-4.9); POTASSIUM 3.6 mmol/L (3.5-5.1)
[2020-05-07 05:11] LABS: SODIUM SERUM 157 mmol/L (136-145); UREA NITROGEN, BLOOD 80 mg/dL (7-18)
[2020-05-07] MEDS: METOCLOPRAMIDE HCL 10 MG/2 ML VIAL IV SCH ×4 (05:24→23:08)
[2020-05-07] MEDS: HYDROCORTISONE SOD SUCCINATE 100 MG/2 ML VIAL IV SCH ×3 (05:24→21:06)
[2020-05-07] MEDS: INSULIN REGULAR, HUMAN 100 UNIT/ML 3 ML VIAL SQ PRN ×3 (05:34→23:20)
[2020-05-07] MEDS: BLOOD SUGAR DIAGNOSTIC 1 EACH STRIP IN SCH ×4 (05:34→23:27)
[2020-05-07] MEDS: FENTANYL CITRAT IV 2,500 MCG in IV NS 0.9% 200 ML IV PRN ×2 (06:21→17:24)
[2020-05-07] MEDS: PROSOURCE / PROSTAT (PYXIS) 30 ML UDC GT SCH ×3 (08:19→16:24)
[2020-05-07] MEDS: MEROPENEM 500 MG in IV NS 0.9% 50 ML IV SCH ×2 (08:20→21:06)
[2020-05-07] MEDS: PANTOPRAZOLE 40 MG VIAL IV SCH ×2 (08:20→16:25)
[2020-05-07] MEDS: CLOTRIMAZOLE 1% 15 GM TUBE TP SCH ×2 (08:21→16:25)
--- NOTE | 2020-05-07 08:30 | NUR ---
WOUND CARE CONSULT: PT SEEN FOR RIGHT CHIN AND RIGHT CHEST DEEP TISSUE INJURIES IN EVOLUTION. PER NURSING STAFF, PT TENDS TO FAVOR THE RIGHT SIDE. PT ALSO NOTED TO HAVE SOME SECRETIONS AT TIMES AND IS WEARING A YELLOW METAL NECKLACE. PT CONTINUES TO BE ORALLY INTUBATED. PT NOTED TO HAVE MULTIPLE CO-MORBIDITIES INCLUDING COVID 19 INFECTION, RESPIRATORY FAILURE, DIABETES AND ACUTE RENAL FAILURE WITH THROMBOCYTOPENIA. DUE TO MULTIPLE CO-MORBIDITIES, FURTHER SKIN BREAKDOWN MAY BE UNAVOIDABLE. RECOMMENDATIONS MADE FOR SKIN PROTECTION AND WOUND CARE. DISCUSSED WITH NURSING STAFF. MD IN AGREEMENT WITH PLAN OF CARE.
[2020-05-07 08:32] LABS: ABG BASE EXCESS -2.7 mmol/L; ABG OXYGEN SATURATION 87.9 % (92.0-98.5); ABG PCO2 39.7 mmHg (35.0-45.0); ABG PH 7.368 (7.350-7.450); ABG PO2 58.7 mmHg (75.0-100.0); AaDO2 614.6 mmHg; COHb 0.6 % (0.5-1.5); MetHb 0.1 % (0.0-1.5); O2Hb 87.3 % (94.0-97.0); PEEP,BG 14 cm H2O; SITE, ABG Right Radial; VENT MODE, BG AC I:E 2:1; VT, ABG 450 mL
--- NOTE | 2020-05-07 10:00 | NUR ---
RN NOTES PATIENT NOTED WITH RSV OF 190ML, PER DR. ALCARAZ TO RESUME THE FEEDING @20ML/HR. WILL CONTINUE TO MONITOR.
[2020-05-07] MEDS ORDERED: Magnesium 1GM/D5W 100ML PREMIX 100 ML IV SCH (10:30)
--- NOTE | 2020-05-07 10:30 | NUR ---
RN NOTES SPOKE WITH GIL VENTURA AND INFORM HER ABOUT THE 190 ML OF RSV, SHE SAID TO CONTINUE 250CC FLUSH OF WATER Q4H. WILL CONTINUE TO MONITOR.
[2020-05-07] MEDS: GLUCERNA 1.2 1,000 ML BOTTLE NG PRN (10:48)
--- NOTE | 2020-05-07 14:43 | NUR ---
JANNA: BASILIA received the Power of Dialysis Chief Equipment Technician Paperwork via fax from the pt.'s family. POA paperwork outlines that the pt.'s POA is the pt.'s sister, Toi Simon to serve as conservator of estate and/or person. If Toi Simon is not available of qualified, the POA paperwork lists that the nephews: Asad Aurora [phone] & Micheal Aurora [phone] to act as co-conservators, or sole conservator if only one is available. BASILIA informers pt.s nurse, Fly Butts RN and will file in pt.s chart.
[2020-05-07] MEDS ORDERED: IV D5W 1,000 ML IV ONE (16:30)
--- NOTE | 2020-05-07 19:15 | NUR ---
RN NOTE RECEIVED SEDATED PATIENT IN NO S/SX OF ACUTE DISTRESS AT THIS TIME. NO SOB NOTED. PATIENT'S BREATHING IS EVEN AND UNLABORED WHILE INTUBATED.PATIENT ON MECHANICAL VENT; SETTINGS PRESCRIBED; PT TOLERATED WELL. AMBU BAG AT BED SIDE ALARMS SET PER PROTOCOL AND AUDIBLE. VENT PLUGGED IN TO RED OUTLET. NO DISTRESS NOTED. NOTED NGT PATENT AND IN PLACE. PLACEMENT VERIFIED BY AUSCULTATION AND ASPIRATION. 50ML RESIDUAL NOTED. TUBE FEEDING RUNNING ORDERED. RIGHT UPPER ARM PICC LINE FLUSHED, PATENT AND INTACT. NO S/S OF INFECTION OR INFILTRATION. WITH IV FLUID RUNNING ORDERED. WITH FENTANYL RUNNING AT 3MCG AND VERSED RUNNING AT 7MG. LOBATO CATH IN PLACE WITH URINE DRAINING VIA GRAVITY. FLEXISEAL NOTED IN PLACE AND DRAINING WELL. PLACED BARE HUGGER FOR TEMP SUPPORT. NOTED WITH CORE TEMP 96. SAFETY MEASURES HAVE BEEN PROVIDED AND IMPLEMENTED. PATIENT BED ALARM IS ON. HEAD OF BED ELEVATED. BED IS LOCKED, IN LOWEST POSITION AND SIDE RAILS UP. CALL LIGHT WITHIN REACH OF THE PATIENT.WILL CONTINUE TO MONITOR AND REASSESS FOR ANY CHANGES AND WILL CARRY OUT ANY ONGOING AND ACTIVE MD ORDER.
[2020-05-07] MEDS: INSULIN GLARGINE, 100 UNIT/ML CARTRIDGE SQ SCH (21:50)
[2020-05-08] VITALS (77 sets, daily range): BP systolic 108–154; BP diastolic 50–78
--- NOTE | 2020-05-08 | NUR ---
RN NOTE PATIENT REMAINS IN NO ACUTE RESPIRATORY DISTRESS AT THIS TIME, NO CHANGES TO CONDITION/STATUS. WILL CONTINUE TO MONITOR AND REASSESS FOR ANY CHANGES THROUGHOUT THE SHIFT
--- NOTE | 2020-05-08 02:00 | NUR ---
RN NOTE COMPLETE BED BATH/LINEN CHANGE AND AM CARE COMPLETED. PT TOLERATED WELL. NO SIGNS OF ACUTE DISTRESS, NGT PLACEMENT VERIFIED BY AUSCULTATION BEFORE RESUMPTION OF TUBE FEEDING. WILL CONTINUE TO MONITOR.
[2020-05-08] MEDS: FENTANYL CITRAT IV 2,500 MCG in IV NS 0.9% 200 ML IV PRN ×3 (03:23→23:20)
[2020-05-08] MEDS: HYDROCORTISONE SOD SUCCINATE 100 MG/2 ML VIAL IV SCH ×3 (04:42→20:25)
[2020-05-08] MEDS: METOCLOPRAMIDE HCL 10 MG/2 ML VIAL IV SCH ×4 (04:42→23:32)
[2020-05-08] MEDS: BLOOD SUGAR DIAGNOSTIC 1 EACH STRIP IN SCH ×3 (05:07→18:06)
[2020-05-08] MEDS: INSULIN REGULAR, HUMAN 100 UNIT/ML 3 ML VIAL SQ PRN ×4 (05:13→23:30)
[2020-05-08 05:30] LABS: BASOPHILS % (AUTO) 0.1 % (0.0-2.0); HEMATOCRIT 24 % (33-45); HEMOGLOBIN 7.7 g/dL (11.5-14.8); LYMPHOCYTES # (AUTO) 0.4 /CMM (0.8-4.8); LYMPHOCYTES % (AUTO) 3.9 % (20.0-44.0); MEAN CORPUSCULAR HGB CONC 33 g/dl (31.0-36.0); MEAN CORPUSCULAR VOLUME 96 fL (82-100); MONOCYTES # (AUTO) 0.3 /CMM (0.1-1.30); MONOCYTES % (AUTO) 2.7 % (2.0-12.0); NEUTROPHILS # (AUTO) 8.7 /CMM (1.8-8.9); NEUTROPHILS % (AUTO) 93.3 % (43.0-81.0); PLATELET COUNT (AUTO) 108 /CMM (150-450); RED BLOOD CELL COUNT(AUTO) 2.47 MIL/uL (4.0-5.2); WHITE BLOOD COUNT (AUTO) 9.3 K/uL (4.3-11.0)
[2020-05-08 05:44] LABS: CALCIUM, SERUM 6.1 mg/dL (8.5-10.1); CARBON DIOXIDE 25 mmol/L (21-32); CHLORIDE 116 mmol/L (98-107); CREATININE 1.9 mg/dL (0.6-1.3); GLUCOSE 200 mg/dL (74-106); MAGNESIUM 1.8 mg/dL (1.8-2.4); PHOSPHORUS 3.7 mg/dL (2.5-4.9); POTASSIUM 3.6 mmol/L (3.5-5.1); SODIUM SERUM 153 mmol/L (136-145); UREA NITROGEN, BLOOD 79 mg/dL (7-18)
--- NOTE | 2020-05-08 06:39 | NUR ---
RN NOTE NO ACUTE CHANGES OBSERVED OVERNIGHT. PATIENT REMAINS IN ROOM IN NO SIGNS OF RESPIRATORY DISTRESS; STILL INTUBATED AND ON VENT SETTING ORDERED. SAFETY MEASURES IMPLEMENTED, BED IN LOWEST POSITION, LOCKED, SIDE RAILS UP, ALL NEEDS AND ORDERS ADDRESSED DURING THE SHIFT. IV ACCESS MAINTAINED INTACT, SECURED AND FLUSHING WELL. ALL DUE MEDS ADMINISTERED ORDERED; NGT PATENT AND IN PLACE VERIFIED BY AUSCULTATION AND ASPIRATION. 60ML OR RESIDUAL NOTED.ONGOING TUBE FEEDING ORDERED. LOBATO CATHETER PATENT AND IN PLACE DRAINING URINE. FLEXISEAL PATENT AND IN PLACE DRAINING SOFT BROWN STOOL. PATIENT KEPT CLEAN AND COMFORTABLE THROUGHOUT THE SHIFT. ALL NEEDS MET AND ATTENDED TO. WILL ENDORSE TO MORNING RN FOR FLIP.
[2020-05-08] MEDS: PROSOURCE / PROSTAT (PYXIS) 30 ML UDC GT SCH ×3 (08:12→17:30)
[2020-05-08] MEDS: PANTOPRAZOLE 40 MG VIAL IV SCH ×2 (08:12→17:31)
[2020-05-08] MEDS: CLOTRIMAZOLE 1% 15 GM TUBE TP SCH ×2 (08:13→17:31)
[2020-05-08] MEDS: MEROPENEM 500 MG in IV NS 0.9% 50 ML IV SCH ×2 (08:13→20:14)
[2020-05-08] MEDS: MIDAZOLAM HCL 100 MG in IV NS 0.9% 80 ML IV PRN (09:39)
[2020-05-08] MEDS: ACETAMINOPHEN 325 MG TABLET PO PRN ×2 (14:22→22:51)
--- NOTE | 2020-05-08 14:23 | NUR ---
PRODUCTION CLOTH CUTTER TEMP 100.[address] WALLER REGARDING TRANSFUSION. WILL WAIT FOR TEMP TO DECREASE BEFORE TRANSFUSION. TYLENOL GIVEN.
--- NOTE | 2020-05-08 19:18 | NUR ---
RN NOTE RECEIVED SEDATED PATIENT IN NO S/SX OF ACUTE DISTRESS AT THIS TIME. NO SOB NOTED. PATIENT'S BREATHING IS EVEN AND UNLABORED WHILE INTUBATED.PATIENT ON MECHANICAL VENT; SETTINGS PRESCRIBED; PT TOLERATED WELL. AMBU BAG AT BED SIDE ALARMS SET PER PROTOCOL AND AUDIBLE. VENT PLUGGED IN TO RED OUTLET. NO DISTRESS NOTED. NOTED NGT PATENT AND IN PLACE. PLACEMENT VERIFIED BY AUSCULTATION AND ASPIRATION. 15ML RESIDUAL NOTED. TUBE FEEDING RUNNING ORDERED. RIGHT UPPER ARM PICC LINE FLUSHED, PATENT AND INTACT. NO S/S OF INFECTION OR INFILTRATION. WITH FENTANYL RUNNING AT 3MCG AND VERSED RUNNING AT 7MG. LOBATO CATH IN PLACE WITH URINE DRAINING VIA GRAVITY. FLEXISEAL NOTED IN PLACE AND DRAINING SOFT BROWN STOOL. NOTED WITH CORE TEMP 99.5. ALSO NOTED WITH ORDER TO TRANSFUSE PRBCS AT THIS TIME. PER MD, DO NOT TRANSFUSE UNTIL TEMPERATURE HAS GONE DOWN, TYLENOL ALREADY GIVEN BY AM NURSE 5 HOURS AGO, ADDITIONAL COOLING MEASURES APPLIED, WILL MONITOR TEMPERATURE. SAFETY MEASURES HAVE BEEN PROVIDED AND IMPLEMENTED. PATIENT BED ALARM IS ON. HEAD OF BED ELEVATED. BED IS LOCKED, IN LOWEST POSITION AND SIDE RAILS UP.WILL CONTINUE TO MONITOR AND REASSESS FOR ANY CHANGES AND WILL CARRY OUT ANY ONGOING AND ACTIVE MD ORDER.
--- NOTE | 2020-05-08 21:30 | NUR ---
RN NOTE TEMPERATURE RECHECKED. RECTAL TEMPERATURE ON BEDSIDE MONITOR SHOWS 99.4. AXILLARY TEMPERATURE CHECKED 99.8. COOLING MEASURES IN PLACE, WILL CONTINUE TO MONITOR. Addendum: 05/08/20 at 2248 by HAILE SAMS RN @ 2247 TEMPERATURE 100 RECTALLY. WILL ADMINISTER TYLENOL.
[2020-05-08] MEDS: INSULIN GLARGINE, 100 UNIT/ML CARTRIDGE SQ SCH (21:59)
[2020-05-09] VITALS (102 sets, daily range): BP systolic 106–145; BP diastolic 50–78
[2020-05-09] MEDS: BLOOD SUGAR DIAGNOSTIC 1 EACH STRIP IN SCH ×4 (00:20→18:14)
--- NOTE | 2020-05-09 03:16 | NUR ---
RN NOTE TEMPERATURE NOW 97.6 RECTALLY. WILL CARRY OUT TRANSFUSION ORDER.
[2020-05-09] MEDS: METOCLOPRAMIDE HCL 10 MG/2 ML VIAL IV SCH ×4 (04:46→23:56)
[2020-05-09] MEDS: HYDROCORTISONE SOD SUCCINATE 100 MG/2 ML VIAL IV SCH ×3 (04:46→20:39)
[2020-05-09] MEDS: INSULIN REGULAR, HUMAN 100 UNIT/ML 3 ML VIAL SQ PRN ×3 (05:24→19:10)
--- NOTE | 2020-05-09 06:20 | NUR ---
RN NOTE BLOOD TRANSFUSION COMPLETED. VITAL SIGNS STABLE. WILL CONTINUE TO MONITOR.
--- NOTE | 2020-05-09 07:09 | NUR ---
RN NOTE NO ACUTE CHANGES OBSERVED OVERNIGHT. PATIENT REMAINS IN ROOM IN NO SIGNS OF RESPIRATORY DISTRESS; STILL INTUBATED AND ON VENT SETTING ORDERED. SAFETY MEASURES IMPLEMENTED, BED IN LOWEST POSITION, LOCKED, SIDE RAILS UP, S/P TRANSFUSION OF 1 PRBC. NO ADVERSE REACTIONS NOTE. ALL NEEDS AND ORDERS ADDRESSED DURING THE SHIFT. IV ACCESS MAINTAINED INTACT, SECURED AND FLUSHING WELL. ALL DUE MEDS ADMINISTERED ORDERED; LEFT NARE NGT PATENT AND IN PLACE VERIFIED BY AUSCULTATION AND ASPIRATION. MINIMAL GASTRIC RESIDUAL NOTED.ONGOING TUBE FEEDING ORDERED. LOBATO CATHETER PATENT AND IN PLACE DRAINING URINE. FLEXISEAL PATENT AND IN PLACE DRAINING SOFT BROWN STOOL. PATIENT KEPT CLEAN AND COMFORTABLE THROUGHOUT THE SHIFT. ALL NEEDS MET AND ATTENDED TO. WILL ENDORSE TO MORNING RN FOR CONTINUATION OF CARE.
--- NOTE | 2020-05-09 08:00 | NUR ---
RN NOTES PATIENT NO SIGNS OF RESPIRATORY DISTRESS; INTUBATED AND ON VENT SETTING ORDERED AND TOLERATED WELL. IV ACCESS MAINTAINED INTACT, SECURED AND FLUSHING WELL. ALL DUE MEDS ADMINISTERED ORDERED. RESIDUAL, AND PLACEMENT CHECKED, RUNNING GLUCERNA 20CC/HR INTACT. IV INFUSING FENTANYL 3 MCG/KG/HR, AND VERSED 2MG/HR INTACT. LOBATO CATHETER PATENT AND IN PLACE DRAINING URINE. FLEXICAL PATENT AND IN PLACE. DRESSING CHANGED, ALL NEEDS MET AND ATTENDED TO. ASSIST TURN AND REPOSTION Q 2 HR. KEEP HOB ELEVATED. WILL MONITORING.
[2020-05-09] MEDS: MEROPENEM 500 MG in IV NS 0.9% 50 ML IV SCH ×2 (08:39→21:01)
[2020-05-09] MEDS: CLOTRIMAZOLE 1% 15 GM TUBE TP SCH ×2 (08:40→18:14)
[2020-05-09] MEDS: PANTOPRAZOLE 40 MG VIAL IV SCH ×2 (08:40→18:15)
[2020-05-09] MEDS: PROSOURCE / PROSTAT (PYXIS) 30 ML UDC GT SCH ×3 (08:41→18:13)
[2020-05-09] MEDS: MIDAZOLAM HCL 100 MG in IV NS 0.9% 80 ML IV PRN (08:53)
--- NOTE | 2020-05-09 09:30 | NUR ---
ET TUBE ADVANCED TO 24CM
[2020-05-09] MEDS: FENTANYL CITRAT IV 2,500 MCG in IV NS 0.9% 200 ML IV PRN ×2 (10:09→20:34)
[2020-05-09 12:16] LABS: BASOPHILS % (AUTO) 0.4 % (0.0-2.0); EOSINOPHILS % (AUTO) 0.3 % (0.0-6.0); HEMATOCRIT 30 % (33-45); HEMOGLOBIN 9.4 g/dL (11.5-14.8); LYMPHOCYTES # (AUTO) 0.6 /CMM (0.8-4.8); MEAN CORPUSCULAR HGB CONC 32 g/dl (31.0-36.0); MEAN CORPUSCULAR VOLUME 98 fL (82-100); MONOCYTES # (AUTO) 0.2 /CMM (0.1-1.30); MONOCYTES % (AUTO) 1.8 % (2.0-12.0); NEUTROPHILS # (AUTO) 10.8 /CMM (1.8-8.9); NEUTROPHILS % (AUTO) 92.5 % (43.0-81.0); PLATELET COUNT (AUTO) 81 /CMM (150-450); RED BLOOD CELL COUNT(AUTO) 3.03 MIL/uL (4.0-5.2); WHITE BLOOD COUNT (AUTO) 11.7 K/uL (4.3-11.0)
[2020-05-09 12:17] LABS: ALANINE AMINOTRANSFERASE 21 U/L (12-78); ALBUMIN 1.8 g/dL (3.4-5.0); ALKALINE PHOSPHATASE 71 U/L (46-116); ASPARTATE AMINOTRANSFERASE 28 U/L (15-37); BILIRUBIN,TOTAL 0.4 mg/dL (0.2-1.0); CARBON DIOXIDE 24 mmol/L (21-32); CHLORIDE 117 mmol/L (98-107); CREATININE 1.6 mg/dL (0.6-1.3); GLUCOSE 153 mg/dL (74-106); MAGNESIUM 1.6 mg/dL (1.8-2.4); PHOSPHORUS 3.4 mg/dL (2.5-4.9); POTASSIUM 3.5 mmol/L (3.5-5.1); SODIUM SERUM 153 mmol/L (136-145); TOTAL PROTEIN, SERUM 5.5 g/dL (6.4-8.2); UREA NITROGEN, BLOOD 75 mg/dL (7-18)
[2020-05-09] MEDS: GLUCERNA 1.2 1,000 ML BOTTLE NG PRN (13:07)
[2020-05-09] MEDS ORDERED: Calcium Gluconate 0.465 MEQ/ML VIAL IV ONE (14:00)
[2020-05-09] MEDS ORDERED: Calcium Gluconate 1GM/10ML 4.65 MEQ in IV D5W 50 ML IV ONE (16:00)
[2020-05-09 16:49] LABS: LYMPHOCYTES % (MANUAL) 5 % (16-48); MONOCYTES % (MANUAL) 6 % (0-11.0); NEUTROPHILS % (MANUAL) 89 (42-76)
[2020-05-09] MEDS: Magnesium 1GM/D5W 100ML PREMIX 100 ML IV SCH ×2 (18:13→19:52)
--- NOTE | 2020-05-09 19:11 | NUR ---
PT REC'D ORALLY INTUBATED VIA ETT 7.0 SECURED @ 24CM L[facility] WITH THE SETTINGS OF AC 25, 450, 100%,PEEP 14. ET TUBE SECURED AND PATENT. BILATERAL CHEST RISE NOTED. SX DONE . ALARMS ARE SET AND AUDIBLE. VENT PLUGGED INTO RED OUTLET. AMBU BAG@ BEDSIDE. WILL CONTINUE TO MONITOR T/O THE SHIFT.
[2020-05-09] MEDS: INSULIN GLARGINE, 100 UNIT/ML CARTRIDGE SQ SCH (21:57)
[2020-05-10] VITALS (90 sets, daily range): BP systolic 101–173; BP diastolic 48–93
[2020-05-10] MEDS: BLOOD SUGAR DIAGNOSTIC 1 EACH STRIP IN SCH ×4 (00:24→17:39)
[2020-05-10] MEDS: HYDROCORTISONE SOD SUCCINATE 100 MG/2 ML VIAL IV SCH ×3 (05:13→21:04)
[2020-05-10] MEDS: METOCLOPRAMIDE HCL 10 MG/2 ML VIAL IV SCH ×4 (05:13→22:57)
[2020-05-10 05:18] LABS: BASOPHILS % (AUTO) 0.2 % (0.0-2.0); EOSINOPHILS % (AUTO) 0.2 % (0.0-6.0); HEMATOCRIT 29 % (33-45); HEMOGLOBIN 9.2 g/dL (11.5-14.8); LYMPHOCYTES # (AUTO) 0.5 /CMM (0.8-4.8); LYMPHOCYTES % (AUTO) 4.3 % (20.0-44.0); MEAN CORPUSCULAR HGB CONC 32 g/dl (31.0-36.0); MEAN CORPUSCULAR VOLUME 96 fL (82-100); MONOCYTES # (AUTO) 0.3 /CMM (0.1-1.30); MONOCYTES % (AUTO) 2.7 % (2.0-12.0); NEUTROPHILS # (AUTO) 10.6 /CMM (1.8-8.9); NEUTROPHILS % (AUTO) 92.6 % (43.0-81.0); PLATELET COUNT (AUTO) 76 /CMM (150-450); WHITE BLOOD COUNT (AUTO) 11.4 K/uL (4.3-11.0)
[2020-05-10 06:02] LABS: ALANINE AMINOTRANSFERASE 23 U/L (12-78); ALBUMIN 1.8 g/dL (3.4-5.0); ALKALINE PHOSPHATASE 65 U/L (46-116); ASPARTATE AMINOTRANSFERASE 31 U/L (15-37); BILIRUBIN,TOTAL 0.4 mg/dL (0.2-1.0); CALCIUM, SERUM 6.2 mg/dL (8.5-10.1); CARBON DIOXIDE 27 mmol/L (21-32); CHLORIDE 117 mmol/L (98-107); CREATININE 1.4 mg/dL (0.6-1.3); GLUCOSE 132 mg/dL (74-106); PHOSPHORUS 2.7 mg/dL (2.5-4.9); POTASSIUM 3.1 mmol/L (3.5-5.1); SODIUM SERUM 154 mmol/L (136-145); TOTAL PROTEIN, SERUM 5.3 g/dL (6.4-8.2); UREA NITROGEN, BLOOD 72 mg/dL (7-18)
[2020-05-10] MEDS: FENTANYL CITRAT IV 2,500 MCG in IV NS 0.9% 200 ML IV PRN (07:42)
[2020-05-10] MEDS: PROSOURCE / PROSTAT (PYXIS) 30 ML UDC GT SCH ×3 (08:54→17:39)
[2020-05-10] MEDS: MEROPENEM 500 MG in IV NS 0.9% 50 ML IV SCH ×2 (08:54→21:01)
[2020-05-10] MEDS: CLOTRIMAZOLE 1% 15 GM TUBE TP SCH ×2 (08:55→17:38)
[2020-05-10] MEDS: PANTOPRAZOLE 40 MG VIAL IV SCH ×2 (09:03→17:38)
[2020-05-10] MEDS ORDERED: POTASSIUM CHLORIDE 20 MEQ POWDER PACKET GT SCH (09:30)
[2020-05-10] MEDS ORDERED: POTASSIUM CHLORIDE 20 MEQ POWDER PACKET GT ONE (12:00)
--- NOTE | 2020-05-10 12:00 | NUR ---
RN NOTES PATIENT RESPIRATION 31, O2-86%, INCREASED VERSED SEDATION 3MG//HR, BS-217MG/DL, AM CARE DONE, KEEP HOB ELEVATED, ASSIST TURN AND REPOSTION USING PILLOWS, DUE MEDICATION ADMINISTERED.
[2020-05-10] MEDS: INSULIN REGULAR, HUMAN 100 UNIT/ML 3 ML VIAL SQ PRN ×2 (13:31→17:33)
[2020-05-10] MEDS: GLUCERNA 1.2 1,000 ML BOTTLE NG PRN (13:40)
[2020-05-10] MEDS: MIDAZOLAM HCL 100 MG in IV NS 0.9% 80 ML IV PRN (14:33)
--- NOTE | 2020-05-10 17:39 | NUR ---
rn notes GET TO ORDER VIA HOSPITALIST DR KIRK HYDRALAZINE 10 ML IV PUSH FOR ELEVATED BP 170/73, P-88, PRN Q8HR, ORDER TAKEN AND CARRIED OUT.
[2020-05-10] MEDS: hydrALAZINE HCL IV 20 MG VIAL IV PRN (18:01)
--- NOTE | 2020-05-10 18:01 | NUR ---
RN NOTES ADMINISTERED HYDRALAZINE 10 MG IV PUSH BP 166/73, P-88. WILL MONITOR.
--- NOTE | 2020-05-10 19:06 | NUR ---
RN NOTES MEDICATION WERE ADMINISTERED FOR BP EFFECTIVE 154/66, NO ACUTE RESPIRATORY DISTRESS. DUE MEDICATION ADMINISTERED, KEEP HOB ELEVATED. RUNNING GLUCERNA 20CC/HR. , FENTANYL 3 MCG/KG/HR, AND VERSED 3 MG. ASSIST TURN AND REPOSTION Q2 HR. ENDORSED ONCOMING NURSE FOLLOW PLAN OF CARE.
--- NOTE | 2020-05-10 20:29 | NUR ---
RECEIVED PT INTUBATED ON VENT. 7.0 ETT AT 22CM LIP. SX'D SML AMT OF THICK LUND SECRETINS. VENT ALARMS SET AND AUDIBLE. ETT CUFF MOP MAN. VENT PLUGGED INTO RED OUTLET. VENT SETTINGS AC 25, 450, 100%, +16. CONTINUE TO MONITOR. Addendum: 05/10/20 at 2033 by RONN SMITH RT Amended: Links added.
[2020-05-10] MEDS: INSULIN GLARGINE, 100 UNIT/ML CARTRIDGE SQ SCH (22:20)
[2020-05-11] VITALS (67 sets, daily range): BP systolic 117–174; BP diastolic 56–90
[2020-05-11] MEDS: FENTANYL CITRAT IV 2,500 MCG in IV NS 0.9% 200 ML IV PRN ×3 (00:04→21:43)
[2020-05-11] MEDS: BLOOD SUGAR DIAGNOSTIC 1 EACH STRIP IN SCH ×4 (01:00→18:19)
[2020-05-11] MEDS: INSULIN REGULAR, HUMAN 100 UNIT/ML 3 ML VIAL SQ PRN ×2 (01:01→06:13)
[2020-05-11] MEDS: HYDROCORTISONE SOD SUCCINATE 100 MG/2 ML VIAL IV SCH ×3 (05:03→20:52)
[2020-05-11] MEDS: METOCLOPRAMIDE HCL 10 MG/2 ML VIAL IV SCH ×4 (05:04→23:24)
[2020-05-11] MEDS: PROSOURCE / PROSTAT (PYXIS) 30 ML UDC GT SCH ×3 (08:39→16:42)
[2020-05-11] MEDS: CLOTRIMAZOLE 1% 15 GM TUBE TP SCH ×2 (08:39→16:43)
[2020-05-11] MEDS: PANTOPRAZOLE 40 MG VIAL IV SCH ×2 (08:39→16:42)
[2020-05-11] MEDS: MEROPENEM 500 MG in IV NS 0.9% 50 ML IV SCH ×2 (08:57→21:02)
--- NOTE | 2020-05-11 10:02 | NUR ---
WOUND CARE FOLLOW UP: PT SEEN FOR FOLLOW UP OF RT CHIN AND RT CHEST WOUNDS WHICH ARE LINEAR IN SHAPE. PT WEARING NECKLACE AND IS CURRENTLY INTUBATED. CHIN WOUND IS PURPLE AND INTACT. WOUND BED CHANGES NOTED TO CHEST WOUND INCLUDE YELLOW TISSUE WITH AREA OF PURPLE BROWN COLOR. RECOMMEND SURGICAL CONSULT. DR ARCHER NOTIFIED OF CONSULT REQUEST. RECOMMENDATIONS MADE FOR SKIN PROTECTION. DISCUSSED WITH NURSING STAFF. MD IN AGREEMENT WITH PLAN OF CARE.
[2020-05-11] MEDS: hydrALAZINE HCL IV 20 MG VIAL IV PRN (10:28)
[2020-05-11] MEDS: IV 1/2NS 1000 ML 1,000 ML IV PRN (15:33)
--- NOTE | 2020-05-11 15:45 | NUR ---
Social Service Bioethics Conference Call: SW to coordinate a bioethics conference call for pt Shayy Monroe with support system nephew (Micheal Simon, ) and sister (Cris Simon ([phone]) at 1600pm. Pt is in ICU room 250/1 and attending presenting physicians are Dr. Perry and Dr. Cadena. Conference Call and conference ID [id number] Support system nephew (Micheal Simon, ) and sister (Cris Simon ([phone]) has not made a decision, but will coordinate with the charge nurse and Dr. Perry for visitation. Dr. Perry will have the charge nurse contact nephew (Micheal Simon, ) to coordinate a visitation. Plan: SW is able to schedule a conference call meeting with Dr. Perry, Dr Cadena, support system nephew (Micheal Simon, ), and sister (Cris Simon [phone]) at 1600pm. The family nephew (Micheal Simon, ) and sister (Cris Simon ([phone]) but Dr. Perry will inform the charge nurse to coordinate with the family. SW will follow up pt if assistance is needed.
[2020-05-11] MEDS: MIDAZOLAM HCL 100 MG in IV NS 0.9% 80 ML IV PRN (16:42)
[2020-05-11] MEDS: INSULIN GLARGINE, 100 UNIT/ML CARTRIDGE SQ SCH (22:32)
[2020-05-12] VITALS (58 sets, daily range): BP systolic 102–165; BP diastolic 51–79
[2020-05-12] MEDS: BLOOD SUGAR DIAGNOSTIC 1 EACH STRIP IN SCH ×4 (00:25→17:29)
[2020-05-12] MEDS: INSULIN REGULAR, HUMAN 100 UNIT/ML 3 ML VIAL SQ PRN ×3 (00:29→17:32)
[2020-05-12 04:31] LABS: BASOPHILS % (AUTO) 0.1 % (0.0-2.0); EOSINOPHILS % (AUTO) 0.2 % (0.0-6.0); HEMATOCRIT 28 % (33-45); HEMOGLOBIN 9.3 g/dL (11.5-14.8); LYMPHOCYTES # (AUTO) 0.3 /CMM (0.8-4.8); LYMPHOCYTES % (AUTO) 2.3 % (20.0-44.0); MEAN CORPUSCULAR HGB CONC 33 g/dl (31.0-36.0); MEAN CORPUSCULAR VOLUME 95 fL (82-100); MONOCYTES # (AUTO) 0.2 /CMM (0.1-1.30); MONOCYTES % (AUTO) 1.8 % (2.0-12.0); NEUTROPHILS # (AUTO) 10.4 /CMM (1.8-8.9); NEUTROPHILS % (AUTO) 95.6 % (43.0-81.0); PLATELET COUNT (AUTO) 80 /CMM (150-450); RED BLOOD CELL COUNT(AUTO) 2.99 MIL/uL (4.0-5.2); WHITE BLOOD COUNT (AUTO) 10.9 K/uL (4.3-11.0)
[2020-05-12 04:41] LABS: ALBUMIN 1.9 g/dL (3.4-5.0); BILIRUBIN,TOTAL 0.4 mg/dL (0.2-1.0); CALCIUM, SERUM 6.1 mg/dL (8.5-10.1); CREATININE 0.8 mg/dL (0.6-1.3); MAGNESIUM 1.3 mg/dL (1.8-2.4); TOTAL PROTEIN, SERUM 5.6 g/dL (6.4-8.2)
[2020-05-12 04:52] LABS: POTASSIUM 2.4 mmol/L (3.5-5.1)
[2020-05-12] MEDS: HYDROCORTISONE SOD SUCCINATE 100 MG/2 ML VIAL IV SCH ×3 (04:59→21:25)
[2020-05-12] MEDS: METOCLOPRAMIDE HCL 10 MG/2 ML VIAL IV SCH ×4 (05:07→23:40)
[2020-05-12] MEDS: IV 1/2NS 1000 ML 1,000 ML IV PRN ×2 (06:10→21:28)
[2020-05-12 06:15] LABS: BAND % (MANUAL) 4 % (0.0-5.0); LYMPHOCYTES % (MANUAL) 1 % (16-48); MONOCYTES % (MANUAL) 1 % (0-11.0); NEUTROPHILS % (MANUAL) 94 (42-76)
[2020-05-12] MEDS: IV NS 0.9% 250 ML IV PRN ×2 (06:25→22:13)
[2020-05-12] MEDS: GLUCERNA 1.2 1,000 ML BOTTLE NG PRN (06:28)
[2020-05-12] MEDS ORDERED: POTASSIUM CL. PREMIX PERIPHER. 50 ML IV SCH (06:30)
[2020-05-12] MEDS: FENTANYL CITRAT IV 2,500 MCG in IV NS 0.9% 200 ML IV PRN ×2 (07:59→17:52)
[2020-05-12 08:45] LABS: ABG BASE EXCESS 2.1 mmol/L; ABG OXYGEN SATURATION 90.8 % (92.0-98.5); ABG PCO2 46.6 mmHg (35.0-45.0); ABG PH 7.388 (7.350-7.450); ABG PO2 59.1 mmHg (75.0-100.0); AaDO2 462.4 mmHg; COHb 0.8 % (0.5-1.5); O2Hb 90.1 % (94.0-97.0); PEEP,BG 14 cm H2O; SITE, ABG Left Radial; VENT MODE, BG AC 2:1 IE; VT, ABG 450 mL
[2020-05-12] MEDS: POTASSIUM CHLORIDE 20 MEQ POWDER PACKET NG SCH ×3 (09:21→11:29)
[2020-05-12] MEDS: PANTOPRAZOLE 40 MG/PACK PACK NG SCH (09:21)
[2020-05-12] MEDS: MEROPENEM 500 MG in IV NS 0.9% 50 ML IV SCH ×2 (09:23→21:23)
[2020-05-12] MEDS: PROSOURCE / PROSTAT (PYXIS) 30 ML UDC GT SCH ×3 (09:23→16:30)
[2020-05-12] MEDS: CLOTRIMAZOLE 1% 15 GM TUBE TP SCH ×2 (09:42→16:30)
[2020-05-12] MEDS: Magnesium 1GM/D5W 100ML PREMIX 100 ML IV SCH ×4 (10:32→13:45)
[2020-05-12] MEDS ORDERED: NEUTRA PHOS 1 POWD.PACKET NG ONE (16:00)
[2020-05-12] MEDS: MIDAZOLAM HCL 100 MG in IV NS 0.9% 80 ML IV PRN (17:10)
[2020-05-12] MEDS: INSULIN GLARGINE, 100 UNIT/ML CARTRIDGE SQ SCH (22:13)
[2020-05-13] VITALS (26 sets, daily range): BP systolic 113–165; BP diastolic 57–89
[2020-05-13] MEDS: BLOOD SUGAR DIAGNOSTIC 1 EACH STRIP IN SCH ×5 (00:09→23:55)
[2020-05-13] MEDS: INSULIN REGULAR, HUMAN 100 UNIT/ML 3 ML VIAL SQ PRN ×4 (00:10→23:58)
[2020-05-13] MEDS: GLUCERNA 1.2 1,000 ML BOTTLE NG PRN (03:20)
[2020-05-13] MEDS: FENTANYL CITRAT IV 2,500 MCG in IV NS 0.9% 200 ML IV PRN ×2 (04:29→15:21)
[2020-05-13] MEDS: HYDROCORTISONE SOD SUCCINATE 100 MG/2 ML VIAL IV SCH ×3 (05:25→17:36)
[2020-05-13] MEDS: METOCLOPRAMIDE HCL 10 MG/2 ML VIAL IV SCH ×4 (05:25→23:54)
[2020-05-13 07:03] LABS: BASOPHILS % (AUTO) 0.1 % (0.0-2.0); EOSINOPHILS % (AUTO) 0.4 % (0.0-6.0); HEMATOCRIT 26 % (33-45); HEMOGLOBIN 8.5 g/dL (11.5-14.8); LYMPHOCYTES # (AUTO) 0.2 /CMM (0.8-4.8); LYMPHOCYTES % (AUTO) 2.6 % (20.0-44.0); MEAN CORPUSCULAR HGB CONC 33 g/dl (31.0-36.0); MEAN CORPUSCULAR VOLUME 96 fL (82-100); MONOCYTES # (AUTO) 0.1 /CMM (0.1-1.30); MONOCYTES % (AUTO) 1.5 % (2.0-12.0); NEUTROPHILS % (AUTO) 95.4 % (43.0-81.0); PLATELET COUNT (AUTO) 76 /CMM (150-450); RED BLOOD CELL COUNT(AUTO) 2.73 MIL/uL (4.0-5.2); WHITE BLOOD COUNT (AUTO) 8.3 K/uL (4.3-11.0)
--- NOTE | 2020-05-13 08:00 | NUR ---
RN NOTES RECEIVED PATIENT NO SIGNS OF RESPIRATORY DISTRESS; INTUBATED AND ON VENT SETTING ORDERED AND TOLERATED WELL. IV ACCESS MAINTAINED INTACT, SECURED AND FLUSHING WELL. ALL DUE MEDS ADMINISTERED ORDERED. RESIDUAL, AND PLACEMENT CHECKED, RUNNING GLUCERNA 20CC/HR INTACT. IV INFUSING FENTANYL 3 MCG/KG/HR, AND VERSED 4MG/HR INTACT. LOBATO CATHETER PATENT AND IN PLACE DRAINING URINE. FLEXICAL PATENT AND IN PLACE. DRESSING CHANGED, ALL NEEDS MET AND ATTENDED TO. ASSIST TURN AND REPOSTION Q 2 HR. KEEP HOB ELEVATED. WILL MONITORING.
[2020-05-13] MEDS: PANTOPRAZOLE 40 MG/PACK PACK NG SCH (08:14)
[2020-05-13] MEDS: PROSOURCE / PROSTAT (PYXIS) 30 ML UDC GT SCH ×3 (08:14→17:25)
[2020-05-13] MEDS: MEROPENEM 500 MG in IV NS 0.9% 50 ML IV SCH (08:14)
[2020-05-13] MEDS: CLOTRIMAZOLE 1% 15 GM TUBE TP SCH ×2 (08:15→17:24)
[2020-05-13 09:45] LABS: ABG BASE EXCESS 2.1 mmol/L; ABG OXYGEN SATURATION 86.2 % (92.0-98.5); ABG PCO2 43.1 mmHg (35.0-45.0); ABG PH 7.414 (7.350-7.450); ABG PO2 52.4 mmHg (75.0-100.0); AaDO2 472.8 mmHg; COHb 1.1 % (0.5-1.5); MetHb 0.3 % (0.0-1.5); PEEP,BG 14 cm H2O; SITE, ABG Left Radial; VENT MODE, BG AC 2:1; VT, ABG 450 mL
[2020-05-13 11:02] LABS: CREATININE 0.7 mg/dL (0.6-1.3); MAGNESIUM 1.7 mg/dL (1.8-2.4); POTASSIUM 3.4 mmol/L (3.5-5.1)
[2020-05-13 11:06] LABS: CALCIUM, SERUM 5.7 mg/dL (8.5-10.1)
[2020-05-13] MEDS: hydrALAZINE HCL IV 20 MG VIAL IV PRN (11:46)
--- NOTE | 2020-05-13 11:47 | NUR ---
RN NOTES ADMINISTERED HYDRALAZINE 10 MG/ML IV PUSH FOR BP 159/73, P-65. BS- 134 MG/DL COVERAGE GIVE, AMA CARE DONE, SUCTION. FLASHED 250 ML OF WATER VIS NGT.
[2020-05-13] MEDS: IV 1/2NS 1000 ML 1,000 ML IV PRN (11:59)
[2020-05-13] MEDS: MIDAZOLAM HCL 100 MG in IV NS 0.9% 80 ML IV PRN (17:50)
--- NOTE | 2020-05-13 18:00 | NUR ---
RN NOTES PATIENT KCL 3.4, CA 5.7, AND MG 1.7 NOTIFIED HOSPITALIST AND PER HOSPITALIST REFUSED TO GIVE COVERAGE, BECAUSE PATIENT WILL BE ON COMFORT CARE.
--- NOTE | 2020-05-13 18:38 | NUR ---
RN NOTES PATIENT AM CARE DONE, DUE MEDICATION ADMINISTERED, PATIENT OXYGEN SATURATION 87, SEEN PATIENT BY TEENA, AND ONE OF FAMILY MEMBER. PATIENT FAMILY WILL SEE PATIENT TOMORROW MORNING FOR COMFORT CARE. BS-166 MG/DL, DUE MEDICATION ADMINISTERED, ASSIST TURN AND REPOSTION Q 2 HR. ENDORSED ONCOMING NURSE FOLLOW PLAN OF CARE.
--- NOTE | 2020-05-13 19:30 | NUR ---
ICU/LEATHER CRAFTER PT'S SATURATION IS 88-86 WITH FIO2 AT 80%, RT CAME AND INCREASED FIO2 TO 100%. SATURATION INCREASED TO 96%. WILL CONTINUE TO MONITOR THIS PT AND HER SATURATION.
--- NOTE | 2020-05-13 21:12 | NUR ---
ICU/HAM MARKER ID OPERATIONS RESEARCH DIRECTOR CAME SEEN THIS PT AND D/C'D THE [facility] IVP. THIS ORDER WAS CARRIED OUT.
[2020-05-13] MEDS: IV NS 0.9% 250 ML IV PRN (21:33)
[2020-05-13] MEDS: INSULIN GLARGINE, 100 UNIT/ML CARTRIDGE SQ SCH (22:32)
[2020-05-14] VITALS (24 sets, daily range): BP systolic 110–144; BP diastolic 50–78
[2020-05-14] MEDS: IV 1/2NS 1000 ML 1,000 ML IV PRN (00:38)
[2020-05-14] MEDS: FENTANYL CITRAT IV 2,500 MCG in IV NS 0.9% 200 ML IV PRN ×3 (01:45→22:24)
[2020-05-14] MEDS: GLUCERNA 1.2 1,000 ML BOTTLE NG PRN (03:38)
[2020-05-14] MEDS: METOCLOPRAMIDE HCL 10 MG/2 ML VIAL IV SCH ×4 (05:25→22:29)
[2020-05-14] MEDS: BLOOD SUGAR DIAGNOSTIC 1 EACH STRIP IN SCH ×3 (06:41→17:01)
[2020-05-14] MEDS: HYDROCORTISONE SOD SUCCINATE 100 MG/2 ML VIAL IV SCH ×2 (08:11→17:00)
[2020-05-14] MEDS: CLOTRIMAZOLE 1% 15 GM TUBE TP SCH ×2 (08:11→17:00)
[2020-05-14] MEDS: PANTOPRAZOLE 40 MG/PACK PACK NG SCH (08:11)
[2020-05-14] MEDS: PROSOURCE / PROSTAT (PYXIS) 30 ML UDC GT SCH ×3 (08:12→17:00)
--- NOTE | 2020-05-14 09:00 | NUR ---
ICU/RN PT IS INTUBATED ON THE VENT AC MODE,FIO2-100%, DECREASED TO 80%,PEEP-14.SEDATED ON VERSED AND FENTANYL..OFF PRESSORS.V/S STABLE,AFEBRILE.NO PAIN REPORTED AT THIS TIME.OG TUBE INFUSING WITH GLUCERNA AT 20 ML/HR.RESIDUAL 10 ML NOTED.GENERALIZED EDEMA PRESENT.F/C DRAINING WITH YELLOW URINE.PT IS DNR/DNI.WAITING FOR THE FAMILY TO COME FOR FINAL VISIT.UNABLE TO PROVIDE SEDATION VACATION DUE TO PT CONDITION AND HIGH O2 AND PEEP RATE.SUCTION PROVIDED REPOSITION FOR COMFORT.DUE MEDS ARE GIVEN ORDERED. CONTINUE MONITORING.
[2020-05-14] MEDS: DEXTROSE 50%-WATER 50 ML DISP.SYRIN IV PRN (11:06)
--- NOTE | 2020-05-14 16:00 | NUR ---
ICU/MAINTENANCE PARTS TECHNICIAN SEEN THE PT .IS NOT READY FOR TERMINAL EXTUBATION.WILL MAKE DECISION IN THE COUPLE OF DAYS.DR ALCARAZ NOTIFIED.ALL BELONGINGS GIVEN TO THE FAMILY .
[2020-05-14] MEDS: IV D5/0.45 NACL 1,000 ML IV PRN (17:00)
[2020-05-14] MEDS: MIDAZOLAM HCL 100 MG in IV NS 0.9% 80 ML IV PRN (17:36)
--- NOTE | 2020-05-14 18:00 | NUR ---
ICU/RN PM CARE PROVIDED.DUE MEDS ARE GIVEN ORDERED.V/S STABLE. WOUND DRESSING DONE ORDERED. SUCTION PROVIDED.REPOSITION FOR COMFORT.
[2020-05-14] MEDS: INSULIN GLARGINE, 100 UNIT/ML CARTRIDGE SQ SCH (21:30)
--- NOTE | 2020-05-14 21:31 | NUR ---
ICU/ASSISTANT PROFESSOR OF MARINE BIOLOGY PT'S BLOOD SUGAR IS 97, GOT ORDER FOR CORPORATE FINANCIAL ANALYST MARK DOW TO HOLD LANTUS 21 UNITS. PT HAS MIDNIGHT BLOOD SUGAR CHECK.
--- NOTE | 2020-05-14 22:58 | NUR ---
ICU/TEASEL GIG OPERATOR PT'S SATURATION IS LOW AT 80-82 WITH FIO2 AT 80%. RESPIRATORY WAS CALLED TO INCREASE THE FIO2 TO 100%, THEN SATURATION CAME UP TO 94%. WILL CONTINUE TO MONITOR THIS PT.
[2020-05-15] VITALS (24 sets, daily range): BP systolic 96–136; BP diastolic 41–77
[2020-05-15] MEDS: BLOOD SUGAR DIAGNOSTIC 1 EACH STRIP IN SCH ×4 (00:03→17:27)
[2020-05-15] MEDS: METOCLOPRAMIDE HCL 10 MG/2 ML VIAL IV SCH ×4 (04:13→22:34)
[2020-05-15] MEDS: GLUCERNA 1.2 1,000 ML BOTTLE NG PRN (04:52)
[2020-05-15] MEDS: IV D5/0.45 NACL 1,000 ML IV PRN ×2 (05:35→18:32)
--- NOTE | 2020-05-15 07:00 | NUR ---
CU/RN PT RECEIVED ON BED, INTUBATED ON THE VENT, FIO2 AT100% , PEEP-14.SEDATED ON VERSED AND FENTANYL..OFF PRESSORS.V/S STABLE,AFEBRILE.NO PAIN REPORTED AT THIS TIME.OG TUBE INFUSING WITH GLUCERNA AT 20 ML/HR. NO RESIDUAL NOTED, GENERALIZED EDEMA PRESENT.F/C DRAINING WITH YELLOW URINE.PT IS DNR/DNI, SUCTION PROVIDED , REPOSITIONED FOR COMFORT. CONTINUE MONITOR.
[2020-05-15] MEDS: FENTANYL CITRAT IV 2,500 MCG in IV NS 0.9% 200 ML IV PRN ×2 (07:56→16:22)
[2020-05-15] MEDS: PANTOPRAZOLE 40 MG/PACK PACK NG SCH (08:11)
[2020-05-15] MEDS: HYDROCORTISONE SOD SUCCINATE 100 MG/2 ML VIAL IV SCH ×2 (08:11→17:02)
[2020-05-15] MEDS: CLOTRIMAZOLE 1% 15 GM TUBE TP SCH ×2 (08:12→17:02)
[2020-05-15] MEDS: PROSOURCE / PROSTAT (PYXIS) 30 ML UDC GT SCH ×3 (08:42→17:02)
[2020-05-15] MEDS: MIDAZOLAM HCL 100 MG in IV NS 0.9% 80 ML IV PRN (17:29)
--- NOTE | 2020-05-15 18:00 | NUR ---
RN NOTED PT REMANINS INTUBATED, AND SEDATED , VSS STABLE, TOLERAING VENT SETTING WELL, NO SIGNIFCANT ACHANGES NOTED ON THIS SHIFT, WILL ENDORSE TO INVASIVE CARDIOLOGIST NURSE FOR CONTINUITY OF CARE R
[2020-05-15] MEDS: INSULIN GLARGINE, 100 UNIT/ML CARTRIDGE SQ SCH (21:53)
[2020-05-16] VITALS (20 sets, daily range): BP systolic 92–126; BP diastolic 42–65
[2020-05-16] MEDS: BLOOD SUGAR DIAGNOSTIC 1 EACH STRIP IN SCH ×4 (00:54→18:04)
[2020-05-16] MEDS: INSULIN REGULAR, HUMAN 100 UNIT/ML 3 ML VIAL SQ PRN ×2 (00:56→05:59)
[2020-05-16] MEDS: FENTANYL CITRAT IV 2,500 MCG in IV NS 0.9% 200 ML IV PRN ×2 (03:21→14:10)
[2020-05-16] MEDS: GLUCERNA 1.2 1,000 ML BOTTLE NG PRN (03:31)
[2020-05-16] MEDS: IV D5/0.45 NACL 1,000 ML IV PRN (03:31)
[2020-05-16] MEDS: METOCLOPRAMIDE HCL 10 MG/2 ML VIAL IV SCH ×3 (04:49→17:30)
[2020-05-16] MEDS: PANTOPRAZOLE 40 MG/PACK PACK NG SCH (08:32)
[2020-05-16] MEDS: HYDROCORTISONE SOD SUCCINATE 100 MG/2 ML VIAL IV SCH ×2 (08:32→17:00)
[2020-05-16] MEDS: PROSOURCE / PROSTAT (PYXIS) 30 ML UDC GT SCH ×3 (08:32→17:00)
[2020-05-16] MEDS: CLOTRIMAZOLE 1% 15 GM TUBE TP SCH ×2 (08:33→17:00)
--- NOTE | 2020-05-16 17:30 | NUR ---
RN NOTES FAMILY @BEDSIDE, DECIDING REGARDING PLANS FOR PATIENT STATUS.
--- NOTE | 2020-05-16 18:50 | NUR ---
RN NOTES FAMILY DECIDED TO PUT PATIENT ON COMFORT MEASURES, MD AWARE, ORDERS MADE AND CARRIED OUT. WILL ENDORSE TO PET SITTER NURSE.
--- NOTE | 2020-05-16 19:37 | NUR ---
RN NOTES PATIENT IS TERMINALLY EXTUBATED AT THIS TIME FAMILY DECIDED TO PLACED THE PATIENT ON COMFORT CARE. PATIENT REMAINED SR HR 77. SATURATION WENT DOWN TO 60'S. BRADYPNEA NOTES TO 8, FENTANYL 3 MCG/KG/MIN ONGOING. WILL CLOSELY MONITOR.
--- NOTE | 2020-05-16 19:37 | NUR ---
PT TERMINALLY EXTUBATED, PLACED ON NC 2L. RN NOTIFIED. VENT TURNED OFF. Addendum: 05/16/20 at 1939 by RONN SMITH RT Amended: Links added.
--- NOTE | 2020-05-16 21:39 | NUR ---
RN NOTES 1999 - PATIENT , PULSELESS, NO RISE AND FALL OF THE CHEST, PUPIL EQUALLY DILATED. VERIFIED BY ANOTHER RN ANJALI. INSURANCE INSTRUCTOR VICTOR M MADE AWARE. 2007 PM - NOTIFIED ADMITTING SPOKE TO [facility] 2009 PM - SCAFFOLD ERECTOR MADE AWARE SPOKE TO CHRIS CANTU. 2021 - CALLED [facility]ARE[facility] AND NOTIFIED THAT PATIENT . PER NICOL THEY WILL CALL TOMORROW MORNING REGARDING THE PATIENT MORTUARY. 2026 PM - CALLED AND INFORMED [employer] SPOKE TO CHRISTOPHER PAIZ CASE NUMBER GIVEN # [id number]. NOT ON CORONERS CASE. OK TO RELEASE THE BODY 2099 - POST MORTEM CARE DONE.. ALL LINES REMOVE. PATIENT IS CLEAN. 2138 PM - PLACED BODY TO [facility].
== END 2020-05-16 20:00 | disposition expired | DRG 870 ==
LOC: ER 16:48 → ICU 20:14 → ICUOV 04-26 10:01 → ICU 04-26 10:29 → ICUOV 04-26 12:28 → ICU 04-26 13:42
PROVIDERS: ADMIT Nurse Practitioner Acute Care
PROC: XW033E5 Introduction of Remdesivir Anti-infective into Peripheral Vein, Percutaneous Approach, New Technology Group 5 (ICD-10-PCS; 2020-03-15)
PROC: XW13325 Transfusion of Convalescent Plasma (Nonautologous) into Peripheral Vein, Percutaneous Approach, New Technology Group 5 (ICD-10-PCS; principal; 2020-03-16)
PROC: 05HY33Z Insertion of Infusion Device into Upper Vein, Percutaneous Approach (ICD-10-PCS; 2020-03-16)
PROC: 5A1955Z Respiratory Ventilation, Greater than 96 Consecutive Hours (ICD-10-PCS; 2020-03-22)
PROC: 0BH18EZ Insertion of Endotracheal Airway into Trachea, Via Natural or Artificial Opening Endoscopic (ICD-10-PCS; 2020-03-22)
PROC: 05H533Z Insertion of Infusion Device into Right Subclavian Vein, Percutaneous Approach (ICD-10-PCS; 2020-04-14)
PROC: B546ZZA Ultrasonography of Right Subclavian Vein, Guidance (ICD-10-PCS; 2020-04-14)
PROC: 02HV33Z Insertion of Infusion Device into Superior Vena Cava, Percutaneous Approach (ICD-10-PCS; 2020-04-15)
PROC: B548ZZA Ultrasonography of Superior Vena Cava, Guidance (ICD-10-PCS; 2020-04-15)
PROC: 30233N1 Transfusion of Nonautologous Red Blood Cells into Peripheral Vein, Percutaneous Approach (ICD-10-PCS; 2020-04-18)
DX: A41.89 Other specified sepsis (principal); I21.A1 Myocardial infarction type 2; U07.1 COVID-19; E11.10 Type 2 diabetes mellitus with ketoacidosis without coma; J96.01 Acute respiratory failure with hypoxia; N17.0 Acute kidney failure with tubular necrosis; R65.21 Severe sepsis with septic shock; J12.82 Pneumonia due to coronavirus disease 2019; E43 Unspecified severe protein-calorie malnutrition; J15.9 Unspecified bacterial pneumonia; E87.1 Hypo-osmolality and hyponatremia; G93.40 Encephalopathy, unspecified; D68.69 Other thrombophilia; N39.0 Urinary tract infection, site not specified; E27.40 Unspecified adrenocortical insufficiency; K92.2 Gastrointestinal hemorrhage, unspecified; E87.2 Acidosis; B37.49 Other urogenital candidiasis; Z51.5 Encounter for palliative care; I10 Essential (primary) hypertension; E87.6 Hypokalemia; Z66 Do not resuscitate; B96.1 Klebsiella pneumoniae [K. pneumoniae] as the cause of diseases classified elsewhere; E66.01 Morbid (severe) obesity due to excess calories; E03.9 Hypothyroidism, unspecified; N13.9 Obstructive and reflux uropathy, unspecified; Z68.36 Body mass index [BMI] 36.0-36.9, adult; M62.50 Muscle wasting and atrophy, not elsewhere classified, unspecified site; E78.1 Pure hyperglyceridemia; D69.59 Other secondary thrombocytopenia; D50.0 Iron deficiency anemia secondary to blood loss (chronic); L98.8 Other specified disorders of the skin and subcutaneous tissue; S20.311A Abrasion of right front wall of thorax, initial encounter; X58.XXXA Exposure to other specified factors, initial encounter; Y93.9 Activity, unspecified; S00.81XA Abrasion of other part of head, initial encounter; E86.1 Hypovolemia; B95.61 Methicillin susceptible Staphylococcus aureus infection as the cause of diseases classified elsewhere; Y92.89 Other specified places as the place of occurrence of the external cause
CPT/HCPCS: 31720; 36410; 36415; 36569; 36600; 71045-TC; 80048-TC; 80053-TC; 80061-TC; 80076-TC; 80202-TC; 81001; 82533; 82550-TC; 82728-TC; 82803-TC; 82947-TC; 82962-TC; 83540-TC; 83605-TC; 83615-TC; 83735-TC; 83880; 84100-TC; 84439-TC; 84443-TC; 84478-TC; 84484-TC; 85025-TC; 85027-TC; 85378-TC; 85610-TC; 85730-TC; 86140-TC; 86480; 86850-TC; 87040-TC; 87070-TC; 87081-TC; 87086-TC; 87186-TC; 87899; 94002-TC; 94003-TC; 94760-TC; 94761-TC; 94762-TC; 94799-TC; 99082-TC; A4216; A4217; A6253; A9563; C9113; C9803; G0378; J0360; J0456; J0610; J0692; J0696; J1100; J1200; J1265; J1650; J1720; J1815; J1940; J2185; J2248; J2250; J2405; J2543; J2765; J3010; J3262; J3370; J3475; J3480; J3490; J7030; J7040; J7050; J7060; J7070; P9016-BL; P9017-BL; P9047; U0003